=== PATIENT | male | born 1965 | race African-American/Black ===

== ENCOUNTER 2017-05-16 13:49 | Inpatient (IN) | payer MEDICARE, OTHER ==
[~2017-05-16] VITALS: Ht 167.6 cm; Wt 89.4 kg
[2017-05-16] MEDS ORDERED: IV NORMAL SALINE 1000ML BAG 1,000 ML IV ONE ×2 (14:45→15:30)
[2017-05-16] MEDS ORDERED: DIPHTH,PERTUSS(ACELL),TET TOX 0.5 ML DISP.SYRIN. VAX IM ONE (14:45)
[2017-05-16] MEDS ORDERED: PIPERACILLIN/TAZOBACTAM 3.375 GM in IV DEXTROSE 5% 50 ML IV ONE (15:00)
[2017-05-16] MEDS ORDERED: VANCOMYCIN 2 GM in IV DEXTROSE 5% 500 ML IV ONE (15:00)
[2017-05-16 15:04] LABS: NEG OBC FOB NEG; POS OBC FOB POS
--- NOTE | 2017-05-16 15:28 | PHYS DOC ---
Past Medical History Past Medical History: No Pertinent History Additional Past Surgical Histo: L HIP SURGERY. Alcohol Use: None Drug Use: None Adult General Chief Complaint Chief Complaint: ABSCESS HPI HPI Patient is a 51 year old male who presents with with no significant medical history who presents complaining of something in his rectal area that he noted a couple days ago. Patient states he has tried soaking in a hot tub with no relief. He states he has tried [id number] hemorrhoids medications including Preparation H with no relief. Patient denies any nausea vomiting. Review of Systems Review of Systems Constitutional: Denies fever or chills [] Eyes: Denies change in visual acuity, redness, or eye pain [] HENT: Denies nasal congestion or sore throat [] Respiratory: Denies cough or shortness of breath [] Cardiovascular: No additional information not addressed in HPI [] GI: Denies abdominal pain, nausea, vomiting, bloody stools or diarrhea [] : Denies dysuria or hematuria [] Musculoskeletal: Denies back pain or joint pain [] Integument: rectal area wound Neurologic: Denies headache, focal weakness or sensory changes [] Current Medications Current Medications Current Medications Medications (Trade) Dose Ordered Sig/Cristina Start Time Stop Time Status Last Admin Dose Admin Diphtheria/ Tetanus/Acell Pertussis (Boostrix) 0.5 ml ONCE ONCE 05/16/17 14:45 05/16/17 14:47 DC Sodium Chloride 1,000 ml @ 1,000 mls/hr 1X ONCE 05/16/17 14:45 05/16/17 15:44 05/16/17 15:18 1,000 MLS/HR Allergies Allergies Allergies Coded Allergies Type Severity Reaction Last Updated Verified No Known Drug Allergies 05/16/17 No Physical Exam Physical Exam Constitutional: Well developed, well nourished, no acute distress, non-toxic appearance. [] HENT: Normocephalic, atraumatic, bilateral external ears normal, oropharynx moist, no oral exudates, nose normal. [] Eyes: PERRLA, EOMI, conjunctiva normal, no discharge. [] Neck: Normal range of motion, no tenderness, supple, no stridor. [] Cardiovascular:Heart rate regular rhythm, no murmur [] Lungs & Thorax: Bilateral breath sounds clear to auscultation [] Abdomen: Bowel sounds normal, soft, no tenderness, no masses, no pulsatile masses. [] Skin: Warm, dry, there is an indurated area mild in size from the exterior rectal area into the inner rectum area with no drainage, the area is fluctuant and erythematous. Back: No tenderness, no CVA tenderness. [] Extremities: No tenderness, no cyanosis, no clubbing, ROM intact, no edema. [] Neurologic: Alert and oriented X 3, normal motor function, normal sensory function, no focal deficits noted. [] Psychologic: Affect normal, judgement normal, mood normal. [] Current Patient Data Vital Signs Vital Signs Date Time Temp Pulse Resp B/P (MAP) Pulse Ox O2 Delivery O2 Flow Rate FiO2 05/16/17 13:55 97.6 117 24 164/82 (109) 95 Room Air 95.0 97.6 Lab Values Laboratory Tests Test 05/16/17 14:15 Stool Occult Blood Negative (NEG) EKG EKG [] Radiology/Procedures Radiology/Procedures [] Course & Med Decision Making Course & Med Decision Making Pertinent Labs and Imaging studies reviewed. (See chart for details) Patient has what appears to be a rectal abscess. Consulted with general surgery. Consulted with Dr. schulte who accepted patient for admission. He was started on antibiotics. Dragon Disclaimer Dragon Disclaimer This electronic medical record was generated, in whole or in part, using a voice recognition dictation system. Departure Departure Impression: Primary Impression: Rectal abscess Disposition: ADMITTED INPATIENT Admitting Physician: Yvonne Schulte Condition: STABLE Referrals: UNKNOWN PCP NAME (PCP) ACSSIE ERICKSON APRN May 16, 2017 15:28
[2017-05-16] MEDS ORDERED: ONDANSETRON PF 4 MG/2 ML VIAL. IV PRN (15:30)
[2017-05-16 15:36] LABS: BASO # 0.1 x10^3/uL (0.0-0.2); BASO % 0 % (0-3); EOS % 0 % (0-3); HEMATOCRIT 49.4 % (39.0-53.0); HEMOGLOBIN 16.3 g/dL (13.0-17.5); LYMPH % 14 % (24-48); MEAN CORPUSCULAR HEMOGLOBIN 30 pg (25-35); MEAN CORPUSCULAR HGB CONC 33 g/dL (31-37); MEAN CORPUSCULAR VOLUME 90 fL (79-100); MONO % 9 % (0-9); NEUT % 77 % (31-73); PLATELET COUNT 287 x10^3/uL (140-400); RED CELL DISTRIBUTION WIDTH 15.1 % (11.5-14.5); WHITE BLOOD COUNT 20.7 x10^3/uL (4.0-11.0)
[2017-05-16] MEDS ORDERED: IOHEXOL 300 MG/ML 75 ML VIAL IV ONE (15:45)
[2017-05-16] MEDS ORDERED: CONTRAST GIVEN MC PRN (15:45)
[2017-05-16 15:51] LABS: CALCIUM 9.4 mg/dL (8.5-10.1); CREATININE 0.9 mg/dL (0.7-1.3); GFR 108.5; POTASSIUM 4.3 mmol/L (3.5-5.1)
[2017-05-16 15:57] LABS: ALBUMIN 3.9 g/dL (3.4-5.0); ALBUMIN/GLOBULIN RATIO 0.7 (1.0-1.7); TOTAL BILIRUBIN 0.6 mg/dL (0.2-1.0); TOTAL PROTEIN 9.6 g/dL (6.4-8.2)
--- NOTE | 2017-05-16 16:07 | PDOC1 ---
History and Physical Date of Admission Date of Admission DATE: 05/16/17 TIME: 16:03 Identification/Chief Complaint Chief Complaint rectal pain Problems: Source Source: Chart review, Patient History of Present Illness History of Present Illness Mr. Myles, is a 51 year old male presented to ER with rectal pain, worse over 4 days, pain with stooling, pain 10/10, now 8 after pain meds He reports no significant medical history. No benefit from soaking in a hot tub with no relief. Preparation H with no relief. 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, prior EtOH abuse, works as a national dedicated truck driver, lives alone Past Medical History Cardiovascular: HTN Musculoskeletal: low back pain Infectious disease: No pertinent hx Renal/: No pertinent hx Social History Smoke: 1 pack per day ALCOHOL: none (prior abuse, sober 13 years) Drugs: None Current Medications Current Medications Current Medications Sodium Chloride 1,000 ml @ 1,000 mls/hr 1X ONCE IV Last administered on 05/16 15:18; Start 05/16/17 at 14:45; Stop 05/16/17 at 15:44; Status DC Diphtheria/ Tetanus/Acell Pertussis (Boostrix) 0.5 ml ONCE ONCE VAX IM Last administered on 05/16/17 15:54; Start 05/16/17 at 14:45; Stop 05/16/17 at 14 :47; Status DC Piperacillin Sod/ Tazobactam Sod 3.375 gm/Dextrose 50 ml @ 100 mls/hr Q8HRS IV ; Start 05/16/17 at 22:00; Status UNV Vancomycin HCl (Vanco Per Pharmacy) 1 each DAILY ; Start 05/17/17 at 09:00; Status UNV Vancomycin HCl 2 gm/Dextrose 500 ml @ 250 mls/hr 1X ONCE IV ; Start 05/16/17 at 15:00; Stop 05/16/17 at 16:59 Piperacillin Sod/ Tazobactam Sod 3.375 gm/Dextrose 50 ml @ 100 mls/hr 1X ONCE IV Last administered on 05/16/17t 15:19; Start 05/16/17 at 15:00; Stop 05/16 at 15:29; Status DC Ondansetron HCl (Zofran) 4 mg PRN Q8HRS PRN IV NAUSEA/VOMITING; Start at 15:30; Stop 05/17/17 at 15:29 Morphine Sulfate 2 mg PRN Q2HR PRN IV PAIN; Start 05/16/17 at 15:30; Stop at 15:29 Sodium Chloride 1,000 ml @ 75 mls/hr 1X ONCE IV ; Start 05/16/17 at 15:30; Stop 05/17/17 at 04:49 Iohexol (Omnipaque 300 Mg/ml) 75 ml 1X ONCE IV ; Start 05/16/17 at 15:45; Stop 05/16/17 at 15:46; Status DC Info (Do NOT chart on this entry -- for MONITORING) 1 each PRN DAILY PRN MC SEE COMMENTS; Start 05/16/17 at 15:45; Stop 05/18/17 at 15:44 Allergies Allergies: Coded Allergies: No Known Drug Allergies (Unverified , 05/16/17) ROS General: YES: Fatigue, Appetite, No: Chills, Night Sweats, Malaise, Other PSYCHOLOGICAL ROS: No: Anxiety, Behavioral Disorder, Concentration difficultie , Decreased libido, Depression, Disorientation, Hallucinations, Hostility, Irritablity, Memory difficulties, Mood Swings, Obsessive thoughts, Physical abuse, Sexual abuse, Sleep disturbances, Suicidal ideation, Other Eyes: No Blurry vision, No Decreased vision, No Double vision, No Dry eyes, No Excessive tearing, No Eye Pain, No Itchy Eyes, No Loss of vision, No Photophobia , No Scotomata, No Uses contacts, No Uses glasses, No Other HEENT: No: Heacaches, Visual Changes, Hearing change, Nasal congestion, Nasal discharge, Oral lesions, Sinus pain, Sore Throat, Epistaxis, Sneezing, Snoring, Tinnitus, Vertigo, Vocal changes, Other Respiratory: No: Cough, Hemoptysis, Orthopnea, Pleuritic Pain, Shortness of breath, SOB with excertion, Sputum Changes, Stridor, Tachypnea, Wheezing, Other Cardiovascular: No Chest Pain, No Palpitations, No Orthopnea, No Paroxysmal Noc. Dyspnea, No Edema, No Lt Headedness, No Other Gastrointestinal: Yes Nausea, No Vomiting, No Abdominal Pain, No Diarrhea, No Constipation, No Melena, No Hematochezia, No Other Genitourinary: No Dysuria, No Frequency, No Incontinence, No Hematuria, No Retention, No Discharge, No Urgency, No Pain, No Flank Pain, No Other, No , No , No , No , No , No , No Musculoskeletal: No Gait Disturbance, No Joint Pain, No Joint Stiffness, No Joint Swelling, No Muscle Pain, No Muscular Weakness, No Pain In:, No Swelling In:, No Other Neurological: No Behavorial Changes, No Bowel/Bladder ControlChng, No Confusion , No Dizziness, No Gait Disturbance, No Headaches, No Impaired Coord/balance, No Memory Loss, No Numbness/Tingling, No Seizures, No Speech Problems, No Tremors, No Visual Changes, No Weakness, No Other Skin: No Dry Skin, No Eczema, No Hair Changes, No Lumps, No Mole Changes, No Mottling, No Nail Changes, No Pruritus, No Rash, No Skin Lesion Changes, No Other, No Acne Physical Exam General: Alert, Cooperative, moderate distress HEENT: EOMI Lungs: Normal air movement Heart: no gallops, no murmurs Abdomen: Normal bowel sounds, Soft Extremities: No clubbing, No edema Skin: No rashes, No significant lesion Neuro: Normal speech, Sensation intact Psych/Mental Status: Mental status NL, Mood NL Vitals Vitals Vital Signs Date Time Temp Pulse Resp B/P (MAP) Pulse Ox O2 Delivery O2 Flow Rate FiO2 05/16/17 13:55 97.6 117 24 164/82 (109) 95 Room Air 95.0 97.6 Labs Labs Laboratory Tests Test 05/16/17 14:15 05/16/17 15:15 Stool Occult Blood Negative (NEG) White Blood Count 20.7 x10^3/uL (4.0-11.0) Red Blood Count 5.50 x10^6/uL (4.30-5.70) Hemoglobin 16.3 g/dL (13.0-17.5) Hematocrit 49.4 % (39.0-53.0) Mean Corpuscular Volume 90 fL (79-100) Mean Corpuscular Hemoglobin 30 pg (25-35) Mean Corpuscular Hemoglobin Concent 33 g/dL (31-37) Red Cell Distribution Width 15.1 % (11.5-14.5) Platelet Count 287 x10^3/uL (140-400) Neutrophils (%) (Auto) 77 % (31-73) Lymphocytes (%) (Auto) 14 % (24-48) Monocytes (%) (Auto) 9 % (0-9) Eosinophils (%) (Auto) 0 % (0-3) Basophils (%) (Auto) 0 % (0-3) Neutrophils # (Auto) 15.8 x10^3uL (1.8-7.7) Lymphocytes # (Auto) 3.0 x10^3/uL (1.0-4.8) Monocytes # (Auto) 1.8 x10^3/uL (0.0-1.1) Eosinophils # (Auto) 0.0 x10^3/uL (0.0-0.7) Basophils # (Auto) 0.1 x10^3/uL (0.0-0.2) Sodium Level 135 mmol/L (136-145) Potassium Level 4.3 mmol/L (3.5-5.1) Chloride Level 100 mmol/L (98-107) Carbon Dioxide Level 23 mmol/L (21-32) Anion Gap 12 (6-14) Blood Urea Nitrogen 12 mg/dL (8-26) Creatinine 0.9 mg/dL (0.7-1.3) Estimated GFR (Cockcroft-Gault) 108.5 BUN/Creatinine Ratio 13 (6-20) Glucose Level 96 mg/dL (70-99) Calcium Level 9.4 mg/dL (8.5-10.1) Total Bilirubin 0.6 mg/dL (0.2-1.0) Aspartate Amino Transf (AST/SGOT) 30 U/L (15-37) Alanine Aminotransferase (ALT/SGPT) 32 U/L (16-63) Alkaline Phosphatase 122 U/L (46-116) Total Protein 9.6 g/dL (6.4-8.2) Albumin 3.9 g/dL (3.4-5.0) Albumin/Globulin Ratio 0.7 (1.0-1.7) Lipase 56 U/L (73-393) Laboratory Tests Test 05/16/17 14:15 05/16/17 15:15 Stool Occult Blood Negative (NEG) White Blood Count 20.7 x10^3/uL (4.0-11.0) Red Blood Count 5.50 x10^6/uL (4.30-5.70) Hemoglobin 16.3 g/dL (13.0-17.5) Hematocrit 49.4 % (39.0-53.0) Mean Corpuscular Volume 90 fL (79-100) Mean Corpuscular Hemoglobin 30 pg (25-35) Mean Corpuscular Hemoglobin Concent 33 g/dL (31-37) Red Cell Distribution Width 15.1 % (11.5-14.5) Platelet Count 287 x10^3/uL (140-400) Neutrophils (%) (Auto) 77 % (31-73) Lymphocytes (%) (Auto) 14 % (24-48) Monocytes (%) (Auto) 9 % (0-9) Eosinophils (%) (Auto) 0 % (0-3) Basophils (%) (Auto) 0 % (0-3) Neutrophils # (Auto) 15.8 x10^3uL (1.8-7.7) Lymphocytes # (Auto) 3.0 x10^3/uL (1.0-4.8) Monocytes # (Auto) 1.8 x10^3/uL (0.0-1.1) Eosinophils # (Auto) 0.0 x10^3/uL (0.0-0.7) Basophils # (Auto) 0.1 x10^3/uL (0.0-0.2) Sodium Level 135 mmol/L (136-145) Potassium Level 4.3 mmol/L (3.5-5.1) Chloride Level 100 mmol/L (98-107) Carbon Dioxide Level 23 mmol/L (21-32) Anion Gap 12 (6-14) Blood Urea Nitrogen 12 mg/dL (8-26) Creatinine 0.9 mg/dL (0.7-1.3) Estimated GFR (Cockcroft-Gault) 108.5 BUN/Creatinine Ratio 13 (6-20) Glucose Level 96 mg/dL (70-99) Calcium Level 9.4 mg/dL (8.5-10.1) Total Bilirubin 0.6 mg/dL (0.2-1.0) Aspartate Amino Transf (AST/SGOT) 30 U/L (15-37) Alanine Aminotransferase (ALT/SGPT) 32 U/L (16-63) Alkaline Phosphatase 122 U/L (46-116) Total Protein 9.6 g/dL (6.4-8.2) Albumin 3.9 g/dL (3.4-5.0) Albumin/Globulin Ratio 0.7 (1.0-1.7) Lipase 56 U/L (73-393) VTE Prophylaxis Ordered VTE Prophylaxis Devices: Yes VTE Pharmacological Prophylaxi: No Assessment/Plan Assessment/Plan sepsis, cellulitis, leukocytosis, tachycardia adn tachypnea, zosyn started acute rectal pain, rectal abcess IV abx started admit for gen surg eval tobaccoism obesity, BMI 33 SALIMA MACIAS MD May 16, 2017 16:07
[2017-05-16] MEDS ORDERED: NICOTINE POLACRILEX 2MG GUM PACKAGE of 12. BC PRN (16:15)
[2017-05-16] MEDS ORDERED: NICOTINE 21MG PATCH. TD PRN (16:15)
[2017-05-16 16:16] LABS: PLT ESTIMATE ADEQUATE (ADEQUATE)
[2017-05-16 16:30] VITALS: BP 162/73
--- NOTE | 2017-05-16 16:39 | RAD ---
CT of the abdomen and pelvis with contrast, 05/16/2017: History: Rectal abscess Multidetector CT imaging was performed following an IV bolus injection of iodinated contrast material. No oral contrast material was administered for this exam. There is mild streaky atelectasis and/or scarring in the lung bases. No hepatic abnormality is detected. The gallbladder is unremarkable. The pancreas shows no abnormality. The spleen is of normal size. No renal or adrenal abnormality is detected. Aortic calcific plaquing is present without evidence of aneurysm. There are small retroperitoneal and iliac lymph nodes without evidence of pathologic enlargement. There are prominent left inguinal lymph nodes. The largest of these measures 36 x 15 mm. The prostate gland and seminal vesicles are unremarkable. There is a left perianal fluid collection containing air bubbles and gas. It measures 3.6 cm in greatest AP dimension and 2 cm in width. Its inferior extent was not completely included on this study. There is mild adjacent streaky inflammation in the perianal fat on the left. There is fluid throughout the colon. The colon is not distended. A portion of the appendix is visualized and it is unremarkable. The small bowel loops show no abnormality. No free air or significant free fluid is evident in the abdomen or pelvis. There is a tract in the proximal left femur compatible with previous surgery. There are chronic bony fragments along superior aspect of the left greater trochanter. IMPRESSION: 1. Small left perianal fluid collection compatible with an abscess. 2. Mild left inguinal adenopathy. PQRS Compliance Statement: One or more of the following individualized dose reduction techniques were utilized for this examination: 1. Automated exposure control 2. Adjustment of the mA and/or kV according to patient size 3. Use of iterative reconstruction technique
[2017-05-16] MEDS: VANCOMYCIN PER PHARMACY MC PRN (17:32)
--- NOTE | 2017-05-16 18:27 | PDOC2 ---
CONSULT Date of Consult Date of Consult DATE: 05/16/17 TIME: 18:23 History of Present Illness Reason for Visit: The patient is a 51 year old male who reported to the ER with perirectal pain and swelling. The problems started approximately 4 days ago and have worsened. He was evaluated in the ER and diagnosed with a perirectal abscess. Past Medical History Cardiovascular: HTN Musculoskeletal: low back pain Infectious disease: No pertinent hx Renal/: No pertinent hx Past Surgical History Past Surgical History L hip surgery, shoulder surgery Social History 1 pack per day ALCOHOL: none (prior abuse, sober 13 years) Drugs: None Current Medications Current Medications Current Medications Sodium Chloride 1,000 ml @ 1,000 mls/hr 1X ONCE IV Last administered on 05/16 15:18; Start 05/16/17 at 14:45; Stop 05/16/17 at 15:44; Status DC Diphtheria/ Tetanus/Acell Pertussis (Boostrix) 0.5 ml ONCE ONCE VAX IM Last administered on 05/16/17 15:54; Start 05/16/17 at 14:45; Stop 05/16/17 at 14 :47; Status DC Piperacillin Sod/ Tazobactam Sod 3.375 gm/Dextrose 50 ml @ 100 mls/hr Q8HRS IV ; Start 05/16/17 at 22:00; Status UNV Vancomycin HCl (Vanco Per Pharmacy) 1 each PRN DAILY PRN MC SEE COMMENTS Last administered on 05/16/17 17:32; Start 05/17/17 at 09:00 Vancomycin HCl 2 gm/Dextrose 500 ml @ 250 mls/hr 1X ONCE IV Last administered on 05/16/17 17:01; Start 05/16/17 at 15:00; Stop 05/16/17 at 16 :59; Status DC Piperacillin Sod/ Tazobactam Sod 3.375 gm/Dextrose 50 ml @ 100 mls/hr 1X ONCE IV Last administered on 05/16/17 15:19; Start 05/16/17 at 15:00; Stop 05/16 at 15:29; Status DC Ondansetron HCl (Zofran) 4 mg PRN Q8HRS PRN IV NAUSEA/VOMITING; Start at 15:30; Stop 05/17/17 at 15:29 Morphine Sulfate 2 mg PRN Q2HR PRN IV PAIN; Start 05/16/17 at 15:30; Stop at 15:29 Sodium Chloride 1,000 ml @ 75 mls/hr 1X ONCE IV Last administered on 17:01; Start 05/16/17 at 15:30; Stop 05/17/17 at 04:49 Iohexol (Omnipaque 300 Mg/ml) 75 ml 1X ONCE IV Last administered on 15:59; Start 05/16/17 at 15:45; Stop 05/16/17 at 15:46; Status DC Info (Do NOT chart on this entry -- for MONITORING) 1 each PRN DAILY PRN MC SEE COMMENTS; Start 05/16/17 at 15:45; Stop 05/18/17 at 15:44 Piperacillin Sod/ Tazobactam Sod (Zosyn) 3.375 gm Q6HRS IVP ; Start 05/16/17 at 19:30 Nicotine (Nicoderm Cq 21mg) 1 patch PRN DAILY PRN TD SMOKING CESSATION; Start 05/16/17 at 16:15 Nicotine Polacrilex (Nicorette Gum) 1 each PRN Q1HR PRN BC SMOKING CESSATION; Start 05/16/17 at 16:15 Vancomycin HCl 1.5 gm/Dextrose 500 ml @ 250 mls/hr Q12H IV ; Start 05/17/17 at 05:00 Vancomycin HCl 1 each 1X ONCE MC ; Start 05/18/17 at 04:30; Stop 05/18/17 at 04 :31 Allergies Allergies: Coded Allergies: No Known Drug Allergies (Unverified , 05/16/17) ROS General: No: Chills, Night Sweats, Fatigue, Malaise, Appetite, Other PSYCHOLOGICAL ROS: No: Anxiety, Behavioral Disorder, Concentration difficultie , Decreased libido, Depression, Disorientation, Hallucinations, Hostility, Irritablity, Memory difficulties, Mood Swings, Obsessive thoughts, Physical abuse, Sexual abuse, Sleep disturbances, Suicidal ideation, Other Eyes: No Blurry vision, No Decreased vision, No Double vision, No Dry eyes, No Excessive tearing, No Eye Pain, No Itchy Eyes, No Loss of vision, No Photophobia , No Scotomata, No Uses contacts, No Uses glasses, No Other HEENT: No: Heacaches, Visual Changes, Hearing change, Nasal congestion, Nasal discharge, Oral lesions, Sinus pain, Sore Throat, Epistaxis, Sneezing, Snoring, Tinnitus, Vertigo, Vocal changes, Other Hematological and Lymphatic: No: Bleeding Problems, Blood Clots, Blood Transfusions, Brusing, Night Sweats, Pallor, Swollen Lymph Nodes, Other ENDOCRINE: No: Breast Changes, Galactorrhea, Hair Pattern Changes, Hot Flashes , Malaise/lethargy, Mood Swings, Palpitations, Polydipsia/polyuria, Skin Changes , Temperature Intolerance, Unexpected Weight Changes, Other Respiratory: No: Cough, Hemoptysis, Orthopnea, Pleuritic Pain, Shortness of breath, SOB with excertion, Sputum Changes, Stridor, Tachypnea, Wheezing, Other Cardiovascular: No Chest Pain, No Palpitations, No Orthopnea, No Paroxysmal Noc. Dyspnea, No Edema, No Lt Headedness, No Other Gastrointestinal: No Nausea, No Vomiting, No Abdominal Pain, No Diarrhea, No Constipation, No Melena, No Hematochezia, No Other Genitourinary: No Dysuria, No Frequency, No Incontinence, No Hematuria, No Retention, No Discharge, No Urgency, No Pain, No Flank Pain, No Other, No , No , No , No , No , No , No Musculoskeletal: No Gait Disturbance, No Joint Pain, No Joint Stiffness, No Joint Swelling, No Muscle Pain, No Muscular Weakness, No Pain In:, No Swelling In:, No Other Neurological: No Behavorial Changes, No Bowel/Bladder ControlChng, No Confusion , No Dizziness, No Gait Disturbance, No Headaches, No Impaired Coord/balance, No Memory Loss, No Numbness/Tingling, No Seizures, No Speech Problems, No Tremors, No Visual Changes, No Weakness, No Other Physical Exam Physical Exam L perianal pain, fluctuance, induration General: Alert, Oriented X3, Cooperative HEENT: Atraumatic Lungs: Clear to auscultation Heart: Regular rate Abdomen: Soft (obese) Extremities: No clubbing, No cyanosis Psych/Mental Status: Mental status NL MUSCULOSKELETAL: No joint tenderness, No deformity Vitals VITALS Vital Signs Date Time Temp Pulse Resp B/P (MAP) Pulse Ox O2 Delivery O2 Flow Rate FiO2 05/16/17 16:30 98.7 82 18 162/73 (102) 98 Room Air 98.7 1030/17 13:55 95.0 Labs Labs Laboratory Tests Test 05/16/17 14:15 05/16/17 15:15 Stool Occult Blood Negative (NEG) White Blood Count 20.7 x10^3/uL (4.0-11.0) Red Blood Count 5.50 x10^6/uL (4.30-5.70) Hemoglobin 16.3 g/dL (13.0-17.5) Hematocrit 49.4 % (39.0-53.0) Mean Corpuscular Volume 90 fL (79-100) Mean Corpuscular Hemoglobin 30 pg (25-35) Mean Corpuscular Hemoglobin Concent 33 g/dL (31-37) Red Cell Distribution Width 15.1 % (11.5-14.5) Platelet Count 287 x10^3/uL (140-400) Neutrophils (%) (Auto) 77 % (31-73) Lymphocytes (%) (Auto) 14 % (24-48) Monocytes (%) (Auto) 9 % (0-9) Eosinophils (%) (Auto) 0 % (0-3) Basophils (%) (Auto) 0 % (0-3) Neutrophils # (Auto) 15.8 x10^3uL (1.8-7.7) Lymphocytes # (Auto) 3.0 x10^3/uL (1.0-4.8) Monocytes # (Auto) 1.8 x10^3/uL (0.0-1.1) Eosinophils # (Auto) 0.0 x10^3/uL (0.0-0.7) Basophils # (Auto) 0.1 x10^3/uL (0.0-0.2) Segmented Neutrophils % 72 % (35-66) Band Neutrophils % 3 % (0-9) Lymphocytes % 17 % (24-48) Atypical Lymphocytes % (Manual) 1 % (0-0) Monocytes % 7 % (0-10) Platelet Estimate Adequate (ADEQUATE) Sodium Level 135 mmol/L (136-145) Potassium Level 4.3 mmol/L (3.5-5.1) Chloride Level 100 mmol/L (98-107) Carbon Dioxide Level 23 mmol/L (21-32) Anion Gap 12 (6-14) Blood Urea Nitrogen 12 mg/dL (8-26) Creatinine 0.9 mg/dL (0.7-1.3) Estimated GFR (Cockcroft-Gault) 108.5 BUN/Creatinine Ratio 13 (6-20) Glucose Level 96 mg/dL (70-99) Calcium Level 9.4 mg/dL (8.5-10.1) Total Bilirubin 0.6 mg/dL (0.2-1.0) Aspartate Amino Transf (AST/SGOT) 30 U/L (15-37) Alanine Aminotransferase (ALT/SGPT) 32 U/L (16-63) Alkaline Phosphatase 122 U/L (46-116) Total Protein 9.6 g/dL (6.4-8.2) Albumin 3.9 g/dL (3.4-5.0) Albumin/Globulin Ratio 0.7 (1.0-1.7) Lipase 56 U/L (73-393) Laboratory Tests Test 05/16/17 14:15 05/16/17 15:15 Stool Occult Blood Negative (NEG) White Blood Count 20.7 x10^3/uL (4.0-11.0) Red Blood Count 5.50 x10^6/uL (4.30-5.70) Hemoglobin 16.3 g/dL (13.0-17.5) Hematocrit 49.4 % (39.0-53.0) Mean Corpuscular Volume 90 fL (79-100) Mean Corpuscular Hemoglobin 30 pg (25-35) Mean Corpuscular Hemoglobin Concent 33 g/dL (31-37) Red Cell Distribution Width 15.1 % (11.5-14.5) Platelet Count 287 x10^3/uL (140-400) Neutrophils (%) (Auto) 77 % (31-73) Lymphocytes (%) (Auto) 14 % (24-48) Monocytes (%) (Auto) 9 % (0-9) Eosinophils (%) (Auto) 0 % (0-3) Basophils (%) (Auto) 0 % (0-3) Neutrophils # (Auto) 15.8 x10^3uL (1.8-7.7) Lymphocytes # (Auto) 3.0 x10^3/uL (1.0-4.8) Monocytes # (Auto) 1.8 x10^3/uL (0.0-1.1) Eosinophils # (Auto) 0.0 x10^3/uL (0.0-0.7) Basophils # (Auto) 0.1 x10^3/uL (0.0-0.2) Segmented Neutrophils % 72 % (35-66) Band Neutrophils % 3 % (0-9) Lymphocytes % 17 % (24-48) Atypical Lymphocytes % (Manual) 1 % (0-0) Monocytes % 7 % (0-10) Platelet Estimate Adequate (ADEQUATE) Sodium Level 135 mmol/L (136-145) Potassium Level 4.3 mmol/L (3.5-5.1) Chloride Level 100 mmol/L (98-107) Carbon Dioxide Level 23 mmol/L (21-32) Anion Gap 12 (6-14) Blood Urea Nitrogen 12 mg/dL (8-26) Creatinine 0.9 mg/dL (0.7-1.3) Estimated GFR (Cockcroft-Gault) 108.5 BUN/Creatinine Ratio 13 (6-20) Glucose Level 96 mg/dL (70-99) Calcium Level 9.4 mg/dL (8.5-10.1) Total Bilirubin 0.6 mg/dL (0.2-1.0) Aspartate Amino Transf (AST/SGOT) 30 U/L (15-37) Alanine Aminotransferase (ALT/SGPT) 32 U/L (16-63) Alkaline Phosphatase 122 U/L (46-116) Total Protein 9.6 g/dL (6.4-8.2) Albumin 3.9 g/dL (3.4-5.0) Albumin/Globulin Ratio 0.7 (1.0-1.7) Lipase 56 U/L (73-393) Assessment/Plan Assessment/Plan Perirectal abscess, recommend incision and drainage. Will schedule for tomorrow , may eat today, NPO after midnight. I discussed the plan with the patient and he agrees. NESTOR LOWRY MD May 16, 2017 18:27
[2017-05-16 19:49] VITALS: BP 116/77
[2017-05-16] MEDS ORDERED: FLU VACC QS2017-18 (36MOS+)/PF 0.5 ML SYRINGE. VAX IM ONE (20:30)
[2017-05-16] MEDS: MORPHINE SULFATE 2 MG/ML DISP.SYRIN. IV PRN ×2 (20:54→23:06)
[2017-05-16] MEDS: PIPERACILLIN/TAZO IV Push 3.375 GM VIAL. IVP SCH (21:38)
[2017-05-16] MEDS ORDERED: PIPERACILLIN/TAZOBACTAM 3.375 GM in IV DEXTROSE 5% 50 ML IV SCH (22:00)
[2017-05-16 23:41] VITALS: BP 147/62
[2017-05-17] VITALS (12 sets, daily range): BP systolic 125–158; BP diastolic 55–83
[2017-05-17] MEDS: PIPERACILLIN/TAZO IV Push 3.375 GM VIAL. IVP SCH ×5 (02:32→23:48)
[2017-05-17] MEDS: VANCOMYCIN 1.5 GM in IV DEXTROSE 5% 500 ML IV SCH ×2 (04:51→17:15)
[2017-05-17 05:02] LABS: BASO # 0.1 x10^3/uL (0.0-0.2); BASO % 1 % (0-3); EOS % 1 % (0-3); HEMATOCRIT 46.7 % (39.0-53.0); HEMOGLOBIN 15.7 g/dL (13.0-17.5); LYMPH # 4.1 x10^3/uL (1.0-4.8); LYMPH % 22 % (24-48); MEAN CORPUSCULAR HEMOGLOBIN 30 pg (25-35); MEAN CORPUSCULAR HGB CONC 34 g/dL (31-37); MEAN CORPUSCULAR VOLUME 88 fL (79-100); MONO % 12 % (0-9); NEUT % 66 % (31-73); PLATELET COUNT 300 x10^3/uL (140-400); RED BLOOD COUNT 5.29 x10^6/uL (4.30-5.70); RED CELL DISTRIBUTION WIDTH 15.1 % (11.5-14.5)
[2017-05-17 05:42] LABS: CREATININE 1.1 mg/dL (0.7-1.3); GFR 86.1; POTASSIUM 4.1 mmol/L (3.5-5.1)
[2017-05-17] MEDS: MORPHINE SULFATE 2 MG/ML DISP.SYRIN. IV PRN (09:40)
[2017-05-17] MEDS ORDERED: IV RINGERS,LACTATED 1000ML 1,000 ML IV ONE (13:45)
[2017-05-17] MEDS ORDERED: fentaNYL PF VIAL 100 MCG/2 ML VIAL ONE ×2 (13:48→14:06)
[2017-05-17] MEDS ORDERED: SEVOFLURANE 16 TO 30 MINUTES. IH ONE (13:48)
[2017-05-17] MEDS ORDERED: LIDOCAINE 2% PF Vial for OR 5 ML VIAL. ONE (13:49)
[2017-05-17] MEDS ORDERED: PROPOFOL 20 ML IV ONE (13:49)
[2017-05-17] MEDS: VANCOMYCIN PER PHARMACY MC PRN (14:18)
[2017-05-17] MEDS ORDERED: HYDROmorphone 2 MG/ML VIAL IV PRN (14:30)
[2017-05-17] MEDS ORDERED: IV RINGERS,LACTATED 1000ML 1,000 ML IV SCH (14:30)
[2017-05-17] MEDS ORDERED: MORPHINE SULFATE 2 MG/ML DISP.SYRIN. IV PRN (14:30)
[2017-05-17] MEDS ORDERED: fentaNYL PF VIAL 100 MCG/2 ML VIAL IV PRN (14:30)
[2017-05-17] MEDS ORDERED: LIDOCAINE 1% PF 2 ML VIAL. ID PRN (14:30)
[2017-05-17] MEDS ORDERED: ONDANSETRON PF 4 MG/2 ML VIAL. IV PRN (14:30)
[2017-05-17] MEDS ORDERED: PROCHLORPERAZINE 10 MG/2 ML VIAL. IV PRN (14:30)
[2017-05-17] MEDS: fentaNYL PF VIAL 100 MCG/2 ML VIAL IV PRN ×2 (14:43→15:06)
--- NOTE | 2017-05-17 15:09 | PDOC ---
PROGRESS NOTES Chief Complaint Chief Complaint sepsis, cellulitis, acute rectal pain, rectal abcess tobaccoism obesity, BMI 31 History of Present Illness History of Present Illness to OR today cont broad abx will make for DC plan in AM, if able to do home wound care Vitals Vitals Vital Signs Date Time Temp Pulse Resp B/P (MAP) Pulse Ox O2 Delivery O2 Flow Rate FiO2 05/17/17 15:06 20 90 Nasal Cannula 2.0 05/17/17 14:33 70 150/78 05/17/17 14:18 97.0 97.0 Physical Exam General: Alert, Oriented X3, Cooperative Heart: Regular rate Abdomen: Soft (obese) Extremities: No clubbing, No cyanosis Skin: No rashes, No significant lesion Labs LABS Laboratory Tests Test 05/16/17 15:15 05/17/17 04:37 White Blood Count 20.7 x10^3/uL (4.0-11.0) 19.0 x10^3/uL (4.0-11.0) Red Blood Count 5.50 x10^6/uL (4.30-5.70) 5.29 x10^6/uL (4.30-5.70) Hemoglobin 16.3 g/dL (13.0-17.5) 15.7 g/dL (13.0-17.5) Hematocrit 49.4 % (39.0-53.0) 46.7 % (39.0-53.0) Mean Corpuscular Volume 90 fL (79-100) 88 fL (79-100) Mean Corpuscular Hemoglobin 30 pg (25-35) 30 pg (25-35) Mean Corpuscular Hemoglobin Concent 33 g/dL (31-37) 34 g/dL (31-37) Red Cell Distribution Width 15.1 % (11.5-14.5) 15.1 % (11.5-14.5) Platelet Count 287 x10^3/uL (140-400) 300 x10^3/uL (140-400) Neutrophils (%) (Auto) 77 % (31-73) 66 % (31-73) Lymphocytes (%) (Auto) 14 % (24-48) 22 % (24-48) Monocytes (%) (Auto) 9 % (0-9) 12 % (0-9) Eosinophils (%) (Auto) 0 % (0-3) 1 % (0-3) Basophils (%) (Auto) 0 % (0-3) 1 % (0-3) Neutrophils # (Auto) 15.8 x10^3uL (1.8-7.7) 12.6 x10^3uL (1.8-7.7) Lymphocytes # (Auto) 3.0 x10^3/uL (1.0-4.8) 4.1 x10^3/uL (1.0-4.8) Monocytes # (Auto) 1.8 x10^3/uL (0.0-1.1) 2.2 x10^3/uL (0.0-1.1) Eosinophils # (Auto) 0.0 x10^3/uL (0.0-0.7) 0.1 x10^3/uL (0.0-0.7) Basophils # (Auto) 0.1 x10^3/uL (0.0-0.2) 0.1 x10^3/uL (0.0-0.2) Segmented Neutrophils % 72 % (35-66) Band Neutrophils % 3 % (0-9) Lymphocytes % 17 % (24-48) Atypical Lymphocytes % (Manual) 1 % (0-0) Monocytes % 7 % (0-10) Platelet Estimate Adequate (ADEQUATE) Sodium Level 135 mmol/L (136-145) 136 mmol/L (136-145) Potassium Level 4.3 mmol/L (3.5-5.1) 4.1 mmol/L (3.5-5.1) Chloride Level 100 mmol/L (98-107) 103 mmol/L (98-107) Carbon Dioxide Level 23 mmol/L (21-32) 23 mmol/L (21-32) Anion Gap 12 (6-14) 10 (6-14) Blood Urea Nitrogen 12 mg/dL (8-26) 11 mg/dL (8-26) Creatinine 0.9 mg/dL (0.7-1.3) 1.1 mg/dL (0.7-1.3) Estimated GFR (Cockcroft-Gault) 108.5 86.1 BUN/Creatinine Ratio 13 (6-20) Glucose Level 96 mg/dL (70-99) 106 mg/dL (70-99) Calcium Level 9.4 mg/dL (8.5-10.1) 9.0 mg/dL (8.5-10.1) Total Bilirubin 0.6 mg/dL (0.2-1.0) Aspartate Amino Transf (AST/SGOT) 30 U/L (15-37) Alanine Aminotransferase (ALT/SGPT) 32 U/L (16-63) Alkaline Phosphatase 122 U/L (46-116) Total Protein 9.6 g/dL (6.4-8.2) Albumin 3.9 g/dL (3.4-5.0) Albumin/Globulin Ratio 0.7 (1.0-1.7) Lipase 56 U/L (73-393) Vancomycin Level Trough 10.7 mcg/mL (10.0-20.0) Vancomycin Last Dose Date 05/16/17 Vancomycin Last Dose Time 1700 Review of Systems Review of Systems pain this AM Comment Review of Relevant I have reviewed the following items migue (where applicable) has been applied. Labs Laboratory Tests Test 05/16/17 14:15 05/16/17 15:15 05/17/17 04:37 Stool Occult Blood Negative (NEG) White Blood Count 20.7 x10^3/uL (4.0-11.0) 19.0 x10^3/uL (4.0-11.0) Red Blood Count 5.50 x10^6/uL (4.30-5.70) 5.29 x10^6/uL (4.30-5.70) Hemoglobin 16.3 g/dL (13.0-17.5) 15.7 g/dL (13.0-17.5) Hematocrit 49.4 % (39.0-53.0) 46.7 % (39.0-53.0) Mean Corpuscular Volume 90 fL (79-100) 88 fL (79-100) Mean Corpuscular Hemoglobin 30 pg (25-35) 30 pg (25-35) Mean Corpuscular Hemoglobin Concent 33 g/dL (31-37) 34 g/dL (31-37) Red Cell Distribution Width 15.1 % (11.5-14.5) 15.1 % (11.5-14.5) Platelet Count 287 x10^3/uL (140-400) 300 x10^3/uL (140-400) Neutrophils (%) (Auto) 77 % (31-73) 66 % (31-73) Lymphocytes (%) (Auto) 14 % (24-48) 22 % (24-48) Monocytes (%) (Auto) 9 % (0-9) 12 % (0-9) Eosinophils (%) (Auto) 0 % (0-3) 1 % (0-3) Basophils (%) (Auto) 0 % (0-3) 1 % (0-3) Neutrophils # (Auto) 15.8 x10^3uL (1.8-7.7) 12.6 x10^3uL (1.8-7.7) Lymphocytes # (Auto) 3.0 x10^3/uL (1.0-4.8) 4.1 x10^3/uL (1.0-4.8) Monocytes # (Auto) 1.8 x10^3/uL (0.0-1.1) 2.2 x10^3/uL (0.0-1.1) Eosinophils # (Auto) 0.0 x10^3/uL (0.0-0.7) 0.1 x10^3/uL (0.0-0.7) Basophils # (Auto) 0.1 x10^3/uL (0.0-0.2) 0.1 x10^3/uL (0.0-0.2) Segmented Neutrophils % 72 % (35-66) Band Neutrophils % 3 % (0-9) Lymphocytes % 17 % (24-48) Atypical Lymphocytes % (Manual) 1 % (0-0) Monocytes % 7 % (0-10) Platelet Estimate Adequate (ADEQUATE) Sodium Level 135 mmol/L (136-145) 136 mmol/L (136-145) Potassium Level 4.3 mmol/L (3.5-5.1) 4.1 mmol/L (3.5-5.1) Chloride Level 100 mmol/L (98-107) 103 mmol/L (98-107) Carbon Dioxide Level 23 mmol/L (21-32) 23 mmol/L (21-32) Anion Gap 12 (6-14) 10 (6-14) Blood Urea Nitrogen 12 mg/dL (8-26) 11 mg/dL (8-26) Creatinine 0.9 mg/dL (0.7-1.3) 1.1 mg/dL (0.7-1.3) Estimated GFR (Cockcroft-Gault) 108.5 86.1 BUN/Creatinine Ratio 13 (6-20) Glucose Level 96 mg/dL (70-99) 106 mg/dL (70-99) Calcium Level 9.4 mg/dL (8.5-10.1) 9.0 mg/dL (8.5-10.1) Total Bilirubin 0.6 mg/dL (0.2-1.0) Aspartate Amino Transf (AST/SGOT) 30 U/L (15-37) Alanine Aminotransferase (ALT/SGPT) 32 U/L (16-63) Alkaline Phosphatase 122 U/L (46-116) Total Protein 9.6 g/dL (6.4-8.2) Albumin 3.9 g/dL (3.4-5.0) Albumin/Globulin Ratio 0.7 (1.0-1.7) Lipase 56 U/L (73-393) Vancomycin Level Trough 10.7 mcg/mL (10.0-20.0) Vancomycin Last Dose Date 05/16/17 Vancomycin Last Dose Time 1700 Laboratory Tests Test 05/16/17 15:15 05/17/17 04:37 White Blood Count 20.7 x10^3/uL (4.0-11.0) 19.0 x10^3/uL (4.0-11.0) Red Blood Count 5.50 x10^6/uL (4.30-5.70) 5.29 x10^6/uL (4.30-5.70) Hemoglobin 16.3 g/dL (13.0-17.5) 15.7 g/dL (13.0-17.5) Hematocrit 49.4 % (39.0-53.0) 46.7 % (39.0-53.0) Mean Corpuscular Volume 90 fL (79-100) 88 fL (79-100) Mean Corpuscular Hemoglobin 30 pg (25-35) 30 pg (25-35) Mean Corpuscular Hemoglobin Concent 33 g/dL (31-37) 34 g/dL (31-37) Red Cell Distribution Width 15.1 % (11.5-14.5) 15.1 % (11.5-14.5) Platelet Count 287 x10^3/uL (140-400) 300 x10^3/uL (140-400) Neutrophils (%) (Auto) 77 % (31-73) 66 % (31-73) Lymphocytes (%) (Auto) 14 % (24-48) 22 % (24-48) Monocytes (%) (Auto) 9 % (0-9) 12 % (0-9) Eosinophils (%) (Auto) 0 % (0-3) 1 % (0-3) Basophils (%) (Auto) 0 % (0-3) 1 % (0-3) Neutrophils # (Auto) 15.8 x10^3uL (1.8-7.7) 12.6 x10^3uL (1.8-7.7) Lymphocytes # (Auto) 3.0 x10^3/uL (1.0-4.8) 4.1 x10^3/uL (1.0-4.8) Monocytes # (Auto) 1.8 x10^3/uL (0.0-1.1) 2.2 x10^3/uL (0.0-1.1) Eosinophils # (Auto) 0.0 x10^3/uL (0.0-0.7) 0.1 x10^3/uL (0.0-0.7) Basophils # (Auto) 0.1 x10^3/uL (0.0-0.2) 0.1 x10^3/uL (0.0-0.2) Segmented Neutrophils % 72 % (35-66) Band Neutrophils % 3 % (0-9) Lymphocytes % 17 % (24-48) Atypical Lymphocytes % (Manual) 1 % (0-0) Monocytes % 7 % (0-10) Platelet Estimate Adequate (ADEQUATE) Sodium Level 135 mmol/L (136-145) 136 mmol/L (136-145) Potassium Level 4.3 mmol/L (3.5-5.1) 4.1 mmol/L (3.5-5.1) Chloride Level 100 mmol/L (98-107) 103 mmol/L (98-107) Carbon Dioxide Level 23 mmol/L (21-32) 23 mmol/L (21-32) Anion Gap 12 (6-14) 10 (6-14) Blood Urea Nitrogen 12 mg/dL (8-26) 11 mg/dL (8-26) Creatinine 0.9 mg/dL (0.7-1.3) 1.1 mg/dL (0.7-1.3) Estimated GFR (Cockcroft-Gault) 108.5 86.1 BUN/Creatinine Ratio 13 (6-20) Glucose Level 96 mg/dL (70-99) 106 mg/dL (70-99) Calcium Level 9.4 mg/dL (8.5-10.1) 9.0 mg/dL (8.5-10.1) Total Bilirubin 0.6 mg/dL (0.2-1.0) Aspartate Amino Transf (AST/SGOT) 30 U/L (15-37) Alanine Aminotransferase (ALT/SGPT) 32 U/L (16-63) Alkaline Phosphatase 122 U/L (46-116) Total Protein 9.6 g/dL (6.4-8.2) Albumin 3.9 g/dL (3.4-5.0) Albumin/Globulin Ratio 0.7 (1.0-1.7) Lipase 56 U/L (73-393) Vancomycin Level Trough 10.7 mcg/mL (10.0-20.0) Vancomycin Last Dose Date 05/16/17 Vancomycin Last Dose Time 1700 Medications Current Medications Sodium Chloride 1,000 ml @ 1,000 mls/hr 1X ONCE IV Last administered on 05/16 15:18; Start 05/16/17 at 14:45; Stop 05/16/17 at 15:44; Status DC Diphtheria/ Tetanus/Acell Pertussis (Boostrix) 0.5 ml ONCE ONCE VAX IM Last administered on 05/16/17 15:54; Start 05/16/17 at 14:45; Stop 05/16/17 at 14 :47; Status DC Piperacillin Sod/ Tazobactam Sod 3.375 gm/Dextrose 50 ml @ 100 mls/hr Q8HRS IV ; Start 05/16/17 at 22:00; Status UNV Vancomycin HCl (Vanco Per Pharmacy) 1 each PRN DAILY PRN MC SEE COMMENTS Last administered on 05/17/17 14:18; Start 05/17/17 at 09:00 Vancomycin HCl 2 gm/Dextrose 500 ml @ 250 mls/hr 1X ONCE IV Last administered on 05/16/17 17:01; Start 05/16/17 at 15:00; Stop 05/16/17 at 16 :59; Status DC Piperacillin Sod/ Tazobactam Sod 3.375 gm/Dextrose 50 ml @ 100 mls/hr 1X ONCE IV Last administered on 05/16/17 15:19; Start 05/16/17 at 15:00; Stop 05/16 at 15:29; Status DC Ondansetron HCl (Zofran) 4 mg PRN Q8HRS PRN IV NAUSEA/VOMITING Last administered on 05/16/17 23:05; Start 05/16/17 at 15:30; Stop 05/17/17 at 15 :29 Morphine Sulfate 2 mg PRN Q2HR PRN IV PAIN Last administered on 05/17/17 09: 40; Start 05/16/17 at 15:30; Stop 05/17/17 at 15:29 Sodium Chloride 1,000 ml @ 75 mls/hr 1X ONCE IV Last administered on 17:01; Start 05/16/17 at 15:30; Stop 05/17/17 at 04:49; Status DC Iohexol (Omnipaque 300 Mg/ml) 75 ml 1X ONCE IV Last administered on 15:59; Start 05/16/17 at 15:45; Stop 05/16/17 at 15:46; Status DC Info (Do NOT chart on this entry -- for MONITORING) 1 each PRN DAILY PRN MC SEE COMMENTS; Start 05/16/17 at 15:45; Stop 05/18/17 at 15:44 Piperacillin Sod/ Tazobactam Sod (Zosyn) 3.375 gm Q6HRS IVP Last administered on 05/17/17 12:06; Start 05/16/17 at 19:30 Nicotine (Nicoderm Cq 21mg) 1 patch PRN DAILY PRN TD SMOKING CESSATION; Start 05/16/17 at 16:15 Nicotine Polacrilex (Nicorette Gum) 1 each PRN Q1HR PRN BC SMOKING CESSATION; Start 05/16/17 at 16:15 Vancomycin HCl 1.5 gm/Dextrose 500 ml @ 250 mls/hr Q12H IV Last administered on 05/17/17 04:51; Start 05/17/17 at 05:00 Vancomycin HCl 1 each 1X ONCE MC ; Start 05/18/17 at 04:30; Stop 05/18/17 at 04 :31 Influenza Virus Vaccine Quadrival (Fluarix Quad [id number] Syringe) 0.5 ml ONCE ONCE VAX IM ; Start 05/16/17 at 20:30; Stop 05/16/17 at 20:31; Status DC Ringer's Solution 1,000 ml @ 75 mls/hr 1X ONCE IV Last administered on t 13:40; Start 05/17/17 at 13:45; Stop 05/18/17 at 03:04 Fentanyl Citrate (Fentanyl 2ml Vial) 100 mcg STK-MED ONCE .ROUTE ; Start at 13:48; Stop 05/17/17 at 13:49; Status DC Sevoflurane (Ultane) 15 ml STK-MED ONCE IH ; Start 05/17/17 at 13:48; Stop at 13:49; Status DC Propofol 20 ml @ As Directed STK-MED ONCE IV ; Start 05/17/17 at 13:49; Stop 05/17/17 at 13:50; Status DC Lidocaine HCl (Lidocaine Pf 2% Vial) 5 ml STK-MED ONCE .ROUTE ; Start 05/17/17 at 13:49; Stop 05/17/17 at 13:50; Status DC Fentanyl Citrate (Fentanyl 2ml Vial) 100 mcg STK-MED ONCE .ROUTE ; Start at 14:06; Stop 05/17/17 at 14:07; Status DC Ondansetron HCl (Zofran) 4 mg PRN Q6HRS PRN IV NAUSEA/VOMITING; Start at 14:30; Stop 05/18/17 at 14:29 Fentanyl Citrate (Fentanyl 2ml Vial) 25 mcg PRN Q5MIN PRN IV MILD PAIN; Start 05/17/17 at 14:30; Stop 05/18/17 at 14:29 Fentanyl Citrate (Fentanyl 2ml Vial) 50 mcg PRN Q5MIN PRN IV MODERATE PAIN Last administered on 05/17/17 15:06; Start 05/17/17 at 14:30; Stop 05/18/17 at 14:29 Morphine Sulfate 1 mg PRN Q10MIN PRN IV SEVERE PAIN; Start 05/17/17 at 14:30; Stop 05/18/17 at 14:29 Ringer's Solution 1,000 ml @ 30 mls/hr Q24H IV ; Start 05/17/17 at 14:30; Stop 05/18/17 at 02:29 Lidocaine HCl (Xylocaine-Mpf 1% Vial) 2 ml 1X PRN PRN ID IV START; Start 05/17 at 14:30; Stop 05/18/17 at 14:29 Hydromorphone HCl (Dilaudid) 0.5 mg PRN Q10MIN PRN IV SEV PAIN, Second choice; Start 05/17/17 at 14:30; Stop 05/18/17 at 14:29 Prochlorperazine Edisylate (Compazine) 5 mg PACU PRN PRN IV NAUSEA, MRX1; Start 05/17/17 at 14:30; Stop 05/18/17 at 14:29 Vitals/I & O Vital Sign - Last 24 Hours 05/16/17 05/16/17 05/16/17 05/16/17 16:27 16:30 19:49 19:50 Temp 98.7 98.6 98.7 98.6 Pulse 82 86 Resp 18 24 B/P (MAP) 162/73 (102) 116/77 (90) Pulse Ox 98 98 O2 Delivery Room Air Room Air Room Air Room Air 05/16/17 05/16/17 05/16/17 05/16/17 20:54 23:06 23:40 23:41 Temp 98.1 98.1 Pulse 76 Resp 16 17 17 24 B/P (MAP) 147/62 (90) Pulse Ox 98 98 94 O2 Delivery Room Air Room Air Room Air 05/17/17 05/17/17 05/17/17 05/17/17 03:13 07:00 08:00 10:26 Temp 98.1 98.1 98.1 98.1 Pulse 70 58 Resp 22 18 B/P (MAP) 125/57 (79) 128/65 (86) Pulse Ox 92 92 92 O2 Delivery Room Air Room Air Room Air Room Air 05/17/17 05/17/17 05/17/17 05/17/17 11:00 13:29 14:18 14:33 Temp 98.1 100.4 97.0 98.1 100.4 97.0 Pulse 61 62 72 70 Resp 18 15 20 20 B/P (MAP) 158/ 151/79 125/76 150/78 Pulse Ox 93 95 98 98 O2 Delivery Room Air Room Air Simple Mask Room Air O2 Flow Rate 05/17/17 05/17/17 14:43 15:06 Resp 20 20 Pulse Ox 90 90 O2 Delivery Room Air Nasal Cannula O2 Flow Rate 2.0 Intake and Output 05/17/17 05/17/17 05/18/17 15:00 23:00 07:00 Intake Total 500 ml Balance 500 ml SALIMA MACIAS MD May 17, 2017 15:09
--- NOTE | 2017-05-17 16:26 | PDOC4 ---
Operative Note Operative Note Operative Note: Preoperative Diagnosis: Perirectal abscess Postoperative Diagnosis: Same Procedure: Incision and drainage of perirectal abscess Surgeon: Silvio Anesthesia: Gen. EBL: 10 mL Specimen: Cultures to micrology Drains: None Complications: None Indication: The patient is a 51-year-old male who reported through the emergency department with perirectal pain and swelling. Examination is consistent with perirectal abscess. There has been some spontaneous drainage but he continues to have pain and swelling of the area. The plan is to proceed to the operating room for formal incision and drainage. The details and risks of surgery were discussed. The risks include bleeding, infection, recurrence, pain, anesthetic risk, potential need for additional surgery or procedure. He understands and would like to proceed Description: The patient was taken to the operating room and placed supine on the operating table. Gen. anesthesia was performed. He was then placed in lithotomy. The perirectal area was prepped with Betadine and draped in a standard surgical manner. The area of involvement was the left perianal skin. There was a small opening from what appeared to be a spontaneous drainage site. There was some remaining fluid however and cultures of this were obtained. Some of the skin was opened further with a scalpel. Digital exploration of the abscess cavity was performed freeing up any remaining loculations. The entire cavity was then fully drained. The cavity was then irrigated with sterile saline. Hemostasis was achieved with cautery. The wound was then packed with sterile gauze and a dressing was applied. The patient tolerated the procedure well and was sent to the recovery room in stable condition. At the end of the case all counts were correct. NESTOR LOWRY MD May 17, 2017 16:25
[2017-05-17] MEDS ORDERED: oxyCODONE/APAP 5/325 1 TAB TABLET PO PRN (16:30)
[2017-05-17] MEDS: oxyCODONE/APAP 5/325 1 TAB TABLET PO PRN ×2 (17:12→23:05)
[2017-05-18 03:08] VITALS: BP 128/74
[2017-05-18] MEDS: oxyCODONE/APAP 5/325 1 TAB TABLET PO PRN ×3 (03:48→18:16)
[2017-05-18] MEDS: VANCOMYCIN 1.5 GM in IV DEXTROSE 5% 500 ML IV SCH ×2 (05:00→11:54)
[2017-05-18] MEDS: PIPERACILLIN/TAZO IV Push 3.375 GM VIAL. IVP SCH ×3 (05:33→18:18)
[2017-05-18 07:00] VITALS: BP 131/72
[2017-05-18] MEDS: VANCOMYCIN PER PHARMACY MC PRN (07:50)
--- NOTE | 2017-05-18 10:07 | PDOC ---
PROGRESS NOTES Subjective Subjective feeling better Objective Objective Vital Signs Date Time Temp Pulse Resp B/P (MAP) Pulse Ox O2 Delivery O2 Flow Rate FiO2 05/18/17 08:19 Nasal Cannula 2.0 05/18/17 07:00 97.5 58 18 131/72 (91) 95 97.5 Plan Plan of Care Wound care to see today, initiate dressing changes for wound care Comment Review of Relevant I have reviewed the following items migue (where applicable) has been applied. Labs Laboratory Tests Test 05/16/17 14:15 05/16/17 15:15 05/17/17 04:37 05/18/17 04:25 Stool Occult Blood Negative (NEG) White Blood Count 20.7 x10^3/uL (4.0-11.0) 19.0 x10^3/uL (4.0-11.0) Red Blood Count 5.50 x10^6/uL (4.30-5.70) 5.29 x10^6/uL (4.30-5.70) Hemoglobin 16.3 g/dL (13.0-17.5) 15.7 g/dL (13.0-17.5) Hematocrit 49.4 % (39.0-53.0) 46.7 % (39.0-53.0) Mean Corpuscular Volume 90 fL (79-100) 88 fL (79-100) Mean Corpuscular Hemoglobin 30 pg (25-35) 30 pg (25-35) Mean Corpuscular Hemoglobin Concent 33 g/dL (31-37) 34 g/dL (31-37) Red Cell Distribution Width 15.1 % (11.5-14.5) 15.1 % (11.5-14.5) Platelet Count 287 x10^3/uL (140-400) 300 x10^3/uL (140-400) Neutrophils (%) (Auto) 77 % (31-73) 66 % (31-73) Lymphocytes (%) (Auto) 14 % (24-48) 22 % (24-48) Monocytes (%) (Auto) 9 % (0-9) 12 % (0-9) Eosinophils (%) (Auto) 0 % (0-3) 1 % (0-3) Basophils (%) (Auto) 0 % (0-3) 1 % (0-3) Neutrophils # (Auto) 15.8 x10^3uL (1.8-7.7) 12.6 x10^3uL (1.8-7.7) Lymphocytes # (Auto) 3.0 x10^3/uL (1.0-4.8) 4.1 x10^3/uL (1.0-4.8) Monocytes # (Auto) 1.8 x10^3/uL (0.0-1.1) 2.2 x10^3/uL (0.0-1.1) Eosinophils # (Auto) 0.0 x10^3/uL (0.0-0.7) 0.1 x10^3/uL (0.0-0.7) Basophils # (Auto) 0.1 x10^3/uL (0.0-0.2) 0.1 x10^3/uL (0.0-0.2) Segmented Neutrophils % 72 % (35-66) Band Neutrophils % 3 % (0-9) Lymphocytes % 17 % (24-48) Atypical Lymphocytes % (Manual) 1 % (0-0) Monocytes % 7 % (0-10) Platelet Estimate Adequate (ADEQUATE) Sodium Level 135 mmol/L (136-145) 136 mmol/L (136-145) Potassium Level 4.3 mmol/L (3.5-5.1) 4.1 mmol/L (3.5-5.1) Chloride Level 100 mmol/L (98-107) 103 mmol/L (98-107) Carbon Dioxide Level 23 mmol/L (21-32) 23 mmol/L (21-32) Anion Gap 12 (6-14) 10 (6-14) Blood Urea Nitrogen 12 mg/dL (8-26) 11 mg/dL (8-26) Creatinine 0.9 mg/dL (0.7-1.3) 1.1 mg/dL (0.7-1.3) Estimated GFR (Cockcroft-Gault) 108.5 86.1 BUN/Creatinine Ratio 13 (6-20) Glucose Level 96 mg/dL (70-99) 106 mg/dL (70-99) Calcium Level 9.4 mg/dL (8.5-10.1) 9.0 mg/dL (8.5-10.1) Total Bilirubin 0.6 mg/dL (0.2-1.0) Aspartate Amino Transf (AST/SGOT) 30 U/L (15-37) Alanine Aminotransferase (ALT/SGPT) 32 U/L (16-63) Alkaline Phosphatase 122 U/L (46-116) Total Protein 9.6 g/dL (6.4-8.2) Albumin 3.9 g/dL (3.4-5.0) Albumin/Globulin Ratio 0.7 (1.0-1.7) Lipase 56 U/L (73-393) Vancomycin Level Trough 10.7 mcg/mL (10.0-20.0) 22.5 mcg/mL (10.0-20.0) Vancomycin Last Dose Date 05/16/17 05/17/17 Vancomycin Last Dose Time 1700 1700 Laboratory Tests Test 05/18/17 04:25 Vancomycin Level Trough 22.5 mcg/mL (10.0-20.0) Vancomycin Last Dose Date 05/17/17 Vancomycin Last Dose Time 1700 Microbiology 05/17/17 Gram Stain - Final, Complete Medications Current Medications Sodium Chloride 1,000 ml @ 1,000 mls/hr 1X ONCE IV Last administered on 05/16 15:18; Start 05/16/17 at 14:45; Stop 05/16/17 at 15:44; Status DC Diphtheria/ Tetanus/Acell Pertussis (Boostrix) 0.5 ml ONCE ONCE VAX IM Last administered on 05/16/17 15:54; Start 05/16/17 at 14:45; Stop 05/16/17 at 14 :47; Status DC Piperacillin Sod/ Tazobactam Sod 3.375 gm/Dextrose 50 ml @ 100 mls/hr Q8HRS IV ; Start 05/16/17 at 22:00; Status UNV Vancomycin HCl (Vanco Per Pharmacy) 1 each PRN DAILY PRN MC SEE COMMENTS Last administered on 05/18/17 07:50; Start 05/17/17 at 09:00 Vancomycin HCl 2 gm/Dextrose 500 ml @ 250 mls/hr 1X ONCE IV Last administered on 05/16/17 17:01; Start 05/16/17 at 15:00; Stop 05/16/17 at 16 :59; Status DC Piperacillin Sod/ Tazobactam Sod 3.375 gm/Dextrose 50 ml @ 100 mls/hr 1X ONCE IV Last administered on 05/16/17 15:19; Start 05/16/17 at 15:00; Stop 05/16 at 15:29; Status DC Ondansetron HCl (Zofran) 4 mg PRN Q8HRS PRN IV NAUSEA/VOMITING Last administered on 05/16/17 23:05; Start 05/16/17 at 15:30; Stop 05/17/17 at 15 :29; Status DC Morphine Sulfate 2 mg PRN Q2HR PRN IV PAIN Last administered on 05/17/17 09: 40; Start 05/16/17 at 15:30; Stop 05/17/17 at 15:29; Status DC Sodium Chloride 1,000 ml @ 75 mls/hr 1X ONCE IV Last administered on 17:01; Start 05/16/17 at 15:30; Stop 05/17/17 at 04:49; Status DC Iohexol (Omnipaque 300 Mg/ml) 75 ml 1X ONCE IV Last administered on 15:59; Start 05/16/17 at 15:45; Stop 05/16/17 at 15:46; Status DC Info (Do NOT chart on this entry -- for MONITORING) 1 each PRN DAILY PRN MC SEE COMMENTS; Start 05/16/17 at 15:45; Stop 05/18/17 at 15:44 Piperacillin Sod/ Tazobactam Sod (Zosyn) 3.375 gm Q6HRS IVP Last administered on 05/18/17 05:33; Start 05/16/17 at 19:30 Nicotine (Nicoderm Cq 21mg) 1 patch PRN DAILY PRN TD SMOKING CESSATION; Start 05/16/17 at 16:15 Nicotine Polacrilex (Nicorette Gum) 1 each PRN Q1HR PRN BC SMOKING CESSATION; Start 05/16/17 at 16:15 Vancomycin HCl 1.5 gm/Dextrose 500 ml @ 250 mls/hr Q12H IV Last administered on 05/17/17 17:15; Start 05/17/17 at 05:00; Stop 05/18/17 at 07:38; Status DC Vancomycin HCl 1 each 1X ONCE MC Last administered on 05/18/17 04:30; Start 05/18/17 at 04:30; Stop 05/18/17 at 04:31; Status DC Influenza Virus Vaccine Quadrival (Fluarix Quad 2803-9300 Syringe) 0.5 ml ONCE ONCE VAX IM ; Start 05/16/17 at 20:30; Stop 05/16/17 at 20:31; Status DC Ringer's Solution 1,000 ml @ 75 mls/hr 1X ONCE IV Last administered on t 13:40; Start 05/17/17 at 13:45; Stop 05/18/17 at 03:04; Status DC Fentanyl Citrate (Fentanyl 2ml Vial) 100 mcg STK-MED ONCE .ROUTE ; Start at 13:48; Stop 05/17/17 at 13:49; Status DC Sevoflurane (Ultane) 15 ml STK-MED ONCE IH ; Start 05/17/17 at 13:48; Stop at 13:49; Status DC Propofol 20 ml @ As Directed STK-MED ONCE IV ; Start 05/17/17 at 13:49; Stop 05/17/17 at 13:50; Status DC Lidocaine HCl (Lidocaine Pf 2% Vial) 5 ml STK-MED ONCE .ROUTE ; Start 05/17/17 at 13:49; Stop 05/17/17 at 13:50; Status DC Fentanyl Citrate (Fentanyl 2ml Vial) 100 mcg STK-MED ONCE .ROUTE ; Start at 14:06; Stop 05/17/17 at 14:07; Status DC Ondansetron HCl (Zofran) 4 mg PRN Q6HRS PRN IV NAUSEA/VOMITING; Start at 14:30; Stop 05/18/17 at 04:07; Status DC Fentanyl Citrate (Fentanyl 2ml Vial) 25 mcg PRN Q5MIN PRN IV MILD PAIN; Start 05/17/17 at 14:30; Stop 05/18/17 at 04:07; Status DC Fentanyl Citrate (Fentanyl 2ml Vial) 50 mcg PRN Q5MIN PRN IV MODERATE PAIN Last administered on 05/17/17t 15:06; Start 05/17/17 at 14:30; Stop 05/18/17 at 04:07; Status DC Morphine Sulfate 1 mg PRN Q10MIN PRN IV SEVERE PAIN; Start 05/17/17 at 14:30; Stop 05/18/17 at 04:07; Status DC Ringer's Solution 1,000 ml @ 30 mls/hr Q24H IV ; Start 05/17/17 at 14:30; Stop 05/18/17 at 02:29; Status DC Lidocaine HCl (Xylocaine-Mpf 1% Vial) 2 ml 1X PRN PRN ID IV START; Start 05/17 at 14:30; Stop 05/18/17 at 14:29 Hydromorphone HCl (Dilaudid) 0.5 mg PRN Q10MIN PRN IV SEV PAIN, Second choice; Start 05/17/17 at 14:30; Stop 05/18/17 at 04:07; Status DC Prochlorperazine Edisylate (Compazine) 5 mg PACU PRN PRN IV NAUSEA, MRX1; Start 05/17/17 at 14:30; Stop 05/18/17 at 04:07; Status DC Oxycodone/ Acetaminophen (Percocet 5/325) 1 tab PRN Q4HRS PRN PO PAIN; Start 05/17/17 at 16:30 Oxycodone/ Acetaminophen (Percocet 5/325) 2 tab PRN Q4HRS PRN PO PAIN Last administered on 05/18/17t 08:19; Start 05/17/17 at 16:30 Vancomycin HCl 1.5 gm/Dextrose 500 ml @ 250 mls/hr Q18H IV ; Start 05/18/17 at 11:00 Vitals/I & O Vital Sign - Last 24 Hours 05/17/17 05/17/17 05/17/17 05/17/17 10:26 11:00 13:29 14:18 Temp 98.1 100.4 97.0 98.1 100.4 97.0 Pulse 61 62 72 Resp 18 15 20 B/P (MAP) 158/ 151/79 125/76 Pulse Ox 92 93 95 98 O2 Delivery Room Air Room Air Room Air Simple Mask O2 Flow Rate 10 05/17/17 05/17/17 05/17/17 05/17/17 14:33 14:43 14:48 15:03 Pulse 70 74 74 Resp 20 20 22 20 B/P (MAP) 150/78 150/78 145/75 Pulse Ox 98 90 95 88 O2 Delivery Room Air Room Air Nasal Cannula Nasal Cannula O2 Flow Rate 2 2 05/17/17 05/17/17 05/17/17 05/17/17 15:06 15:11 15:28 15:30 Temp 98.4 98.4 Pulse 74 67 Resp 20 18 18 B/P (MAP) 153/83 (106) 136/83 (100) Pulse Ox 90 91 89 O2 Delivery Nasal Cannula Nasal Cannula Nasal Cannula Nasal Cannula O2 Flow Rate 2.0 2 2.0 2.0 05/17/17 05/17/17 05/17/17 05/17/17 15:45 16:00 16:15 16:30 Pulse 74 68 69 71 Resp 18 18 18 18 B/P (MAP) 148/79 (102) 144/72 (96) 128/69 (88) 130/55 (80) Pulse Ox 99 97 92 88 O2 Delivery Nasal Cannula Nasal Cannula Nasal Cannula Nasal Cannula O2 Flow Rate 2.0 2.0 2.0 2.0 05/17/17 05/17/17 05/17/17 05/17/17 17:00 17:09 17:12 18:18 Pulse 71 Resp 18 B/P (MAP) 136/60 (85) Pulse Ox 91 91 91 91 O2 Delivery Nasal Cannula Nasal Cannula Nasal Cannula O2 Flow Rate 2.0 2.0 2.0 05/17/17 05/17/17 05/17/17 05/17/17 19:30 20:00 23:05 23:27 Temp 98.1 98.4 98.1 98.4 Pulse 65 67 Resp 18 18 B/P (MAP) 126/71 (89) 138/74 (95) Pulse Ox 93 93 O2 Delivery Nasal Cannula Room Air Nasal Cannula Room Air O2 Flow Rate 2.0 1.0 05/18/17 05/18/17 05/18/17 05/18/17 00:05 03:08 03:48 04:48 Temp 98.4 98.4 Pulse 65 Resp 18 B/P (MAP) 128/74 (92) Pulse Ox 94 O2 Delivery Nasal Cannula Nasal Cannula Room Air O2 Flow Rate 1.0 2.0 1.0 05/18/17 05/18/17 07:00 08:19 Temp 97.5 97.5 Pulse 58 Resp 18 B/P (MAP) 131/72 (91) Pulse Ox 95 O2 Delivery Nasal Cannula Nasal Cannula O2 Flow Rate 2.0 2.0 NESTOR LOWRY MD May 18, 2017 10:07
[2017-05-18 11:00] VITALS: BP 145/68
[2017-05-18 15:00] VITALS: BP 145/78
--- NOTE | 2017-05-18 15:08 | PDOC ---
PROGRESS NOTES Chief Complaint Chief Complaint sepsis, cellulitis, acute rectal pain, ramesh-rectal abcess, POD #1 tobaccoism obesity, BMI 31 History of Present Illness History of Present Illness to OR yesterday cont broad abx will need wound care , consider if able to do home wound care Vitals Vitals Vital Signs Date Time Temp Pulse Resp B/P (MAP) Pulse Ox O2 Delivery O2 Flow Rate FiO2 05/18/17 11:00 97.5 64 18 145/68 (93) 96 Nasal Cannula 2.0 97.5 Physical Exam General: Alert, Oriented X3, Cooperative Heart: Regular rate Abdomen: Soft (obese) Extremities: No clubbing, No cyanosis Skin: No rashes, No significant lesion Labs LABS Laboratory Tests Test 05/18/17 04:25 Vancomycin Level Trough 22.5 mcg/mL (10.0-20.0) Vancomycin Last Dose Date 05/17/17 Vancomycin Last Dose Time 1700 Review of Systems Review of Systems pain better eating OK slept OK Assessment and Plan Assessmemt and Plan wound care consut cont IV abx plan to DC in AM Problems: Comment Review of Relevant I have reviewed the following items migue (where applicable) has been applied. Labs Laboratory Tests Test 05/16/17 15:15 05/17/17 04:37 05/18/17 04:25 White Blood Count 20.7 x10^3/uL (4.0-11.0) 19.0 x10^3/uL (4.0-11.0) Red Blood Count 5.50 x10^6/uL (4.30-5.70) 5.29 x10^6/uL (4.30-5.70) Hemoglobin 16.3 g/dL (13.0-17.5) 15.7 g/dL (13.0-17.5) Hematocrit 49.4 % (39.0-53.0) 46.7 % (39.0-53.0) Mean Corpuscular Volume 90 fL (79-100) 88 fL (79-100) Mean Corpuscular Hemoglobin 30 pg (25-35) 30 pg (25-35) Mean Corpuscular Hemoglobin Concent 33 g/dL (31-37) 34 g/dL (31-37) Red Cell Distribution Width 15.1 % (11.5-14.5) 15.1 % (11.5-14.5) Platelet Count 287 x10^3/uL (140-400) 300 x10^3/uL (140-400) Neutrophils (%) (Auto) 77 % (31-73) 66 % (31-73) Lymphocytes (%) (Auto) 14 % (24-48) 22 % (24-48) Monocytes (%) (Auto) 9 % (0-9) 12 % (0-9) Eosinophils (%) (Auto) 0 % (0-3) 1 % (0-3) Basophils (%) (Auto) 0 % (0-3) 1 % (0-3) Neutrophils # (Auto) 15.8 x10^3uL (1.8-7.7) 12.6 x10^3uL (1.8-7.7) Lymphocytes # (Auto) 3.0 x10^3/uL (1.0-4.8) 4.1 x10^3/uL (1.0-4.8) Monocytes # (Auto) 1.8 x10^3/uL (0.0-1.1) 2.2 x10^3/uL (0.0-1.1) Eosinophils # (Auto) 0.0 x10^3/uL (0.0-0.7) 0.1 x10^3/uL (0.0-0.7) Basophils # (Auto) 0.1 x10^3/uL (0.0-0.2) 0.1 x10^3/uL (0.0-0.2) Segmented Neutrophils % 72 % (35-66) Band Neutrophils % 3 % (0-9) Lymphocytes % 17 % (24-48) Atypical Lymphocytes % (Manual) 1 % (0-0) Monocytes % 7 % (0-10) Platelet Estimate Adequate (ADEQUATE) Sodium Level 135 mmol/L (136-145) 136 mmol/L (136-145) Potassium Level 4.3 mmol/L (3.5-5.1) 4.1 mmol/L (3.5-5.1) Chloride Level 100 mmol/L (98-107) 103 mmol/L (98-107) Carbon Dioxide Level 23 mmol/L (21-32) 23 mmol/L (21-32) Anion Gap 12 (6-14) 10 (6-14) Blood Urea Nitrogen 12 mg/dL (8-26) 11 mg/dL (8-26) Creatinine 0.9 mg/dL (0.7-1.3) 1.1 mg/dL (0.7-1.3) Estimated GFR (Cockcroft-Gault) 108.5 86.1 BUN/Creatinine Ratio 13 (6-20) Glucose Level 96 mg/dL (70-99) 106 mg/dL (70-99) Calcium Level 9.4 mg/dL (8.5-10.1) 9.0 mg/dL (8.5-10.1) Total Bilirubin 0.6 mg/dL (0.2-1.0) Aspartate Amino Transf (AST/SGOT) 30 U/L (15-37) Alanine Aminotransferase (ALT/SGPT) 32 U/L (16-63) Alkaline Phosphatase 122 U/L (46-116) Total Protein 9.6 g/dL (6.4-8.2) Albumin 3.9 g/dL (3.4-5.0) Albumin/Globulin Ratio 0.7 (1.0-1.7) Lipase 56 U/L (73-393) Vancomycin Level Trough 10.7 mcg/mL (10.0-20.0) 22.5 mcg/mL (10.0-20.0) Vancomycin Last Dose Date 05/16/17 05/17/17 Vancomycin Last Dose Time 1700 1700 Laboratory Tests Test 05/18/17 04:25 Vancomycin Level Trough 22.5 mcg/mL (10.0-20.0) Vancomycin Last Dose Date 05/17/17 Vancomycin Last Dose Time 1700 Microbiology 05/17/17 Gram Stain - Final, Complete Medications Current Medications Sodium Chloride 1,000 ml @ 1,000 mls/hr 1X ONCE IV Last administered on 05/16 15:18; Start 05/16/17 at 14:45; Stop 05/16/17 at 15:44; Status DC Diphtheria/ Tetanus/Acell Pertussis (Boostrix) 0.5 ml ONCE ONCE VAX IM Last administered on 05/16/17 15:54; Start 05/16/17 at 14:45; Stop 05/16/17 at 14 :47; Status DC Piperacillin Sod/ Tazobactam Sod 3.375 gm/Dextrose 50 ml @ 100 mls/hr Q8HRS IV ; Start 05/16/17 at 22:00; Status UNV Vancomycin HCl (Vanco Per Pharmacy) 1 each PRN DAILY PRN MC SEE COMMENTS Last administered on 05/18/17 07:50; Start 05/17/17 at 09:00 Vancomycin HCl 2 gm/Dextrose 500 ml @ 250 mls/hr 1X ONCE IV Last administered on 05/16/17 17:01; Start 05/16/17 at 15:00; Stop 05/16/17 at 16 :59; Status DC Piperacillin Sod/ Tazobactam Sod 3.375 gm/Dextrose 50 ml @ 100 mls/hr 1X ONCE IV Last administered on 05/16/17 15:19; Start 05/16/17 at 15:00; Stop 05/16 at 15:29; Status DC Ondansetron HCl (Zofran) 4 mg PRN Q8HRS PRN IV NAUSEA/VOMITING Last administered on 05/16/17 23:05; Start 05/16/17 at 15:30; Stop 05/17/17 at 15 :29; Status DC Morphine Sulfate 2 mg PRN Q2HR PRN IV PAIN Last administered on 05/17/17 09: 40; Start 05/16/17 at 15:30; Stop 05/17/17 at 15:29; Status DC Sodium Chloride 1,000 ml @ 75 mls/hr 1X ONCE IV Last administered on 17:01; Start 05/16/17 at 15:30; Stop 05/17/17 at 04:49; Status DC Iohexol (Omnipaque 300 Mg/ml) 75 ml 1X ONCE IV Last administered on 15:59; Start 05/16/17 at 15:45; Stop 05/16/17 at 15:46; Status DC Info (Do NOT chart on this entry -- for MONITORING) 1 each PRN DAILY PRN MC SEE COMMENTS; Start 05/16/17 at 15:45; Stop 05/18/17 at 15:44 Piperacillin Sod/ Tazobactam Sod (Zosyn) 3.375 gm Q6HRS IVP Last administered on 05/18/17 11:54; Start 05/16/17 at 19:30 Nicotine (Nicoderm Cq 21mg) 1 patch PRN DAILY PRN TD SMOKING CESSATION; Start 05/16/17 at 16:15 Nicotine Polacrilex (Nicorette Gum) 1 each PRN Q1HR PRN BC SMOKING CESSATION; Start 05/16/17 at 16:15 Vancomycin HCl 1.5 gm/Dextrose 500 ml @ 250 mls/hr Q12H IV Last administered on 05/17/17 17:15; Start 05/17/17 at 05:00; Stop 05/18/17 at 07:38; Status DC Vancomycin HCl 1 each 1X ONCE MC Last administered on 05/18/17 04:30; Start 05/18/17 at 04:30; Stop 05/18/17 at 04:31; Status DC Influenza Virus Vaccine Quadrival (Fluarix Quad 2417-5267 Syringe) 0.5 ml ONCE ONCE VAX IM ; Start 05/16/17 at 20:30; Stop 05/16/17 at 20:31; Status DC Ringer's Solution 1,000 ml @ 75 mls/hr 1X ONCE IV Last administered on t 13:40; Start 05/17/17 at 13:45; Stop 05/18/17 at 03:04; Status DC Fentanyl Citrate (Fentanyl 2ml Vial) 100 mcg STK-MED ONCE .ROUTE ; Start at 13:48; Stop 05/17/17 at 13:49; Status DC Sevoflurane (Ultane) 15 ml STK-MED ONCE IH ; Start 05/17/17 at 13:48; Stop at 13:49; Status DC Propofol 20 ml @ As Directed STK-MED ONCE IV ; Start 05/17/17 at 13:49; Stop 05/17/17 at 13:50; Status DC Lidocaine HCl (Lidocaine Pf 2% Vial) 5 ml STK-MED ONCE .ROUTE ; Start 05/17/17 at 13:49; Stop 05/17/17 at 13:50; Status DC Fentanyl Citrate (Fentanyl 2ml Vial) 100 mcg STK-MED ONCE .ROUTE ; Start at 14:06; Stop 05/17/17 at 14:07; Status DC Ondansetron HCl (Zofran) 4 mg PRN Q6HRS PRN IV NAUSEA/VOMITING; Start at 14:30; Stop 05/18/17 at 04:07; Status DC Fentanyl Citrate (Fentanyl 2ml Vial) 25 mcg PRN Q5MIN PRN IV MILD PAIN; Start 05/17/17 at 14:30; Stop 05/18/17 at 04:07; Status DC Fentanyl Citrate (Fentanyl 2ml Vial) 50 mcg PRN Q5MIN PRN IV MODERATE PAIN Last administered on 05/17/17 15:06; Start 05/17/17 at 14:30; Stop 05/18/17 at 04:07; Status DC Morphine Sulfate 1 mg PRN Q10MIN PRN IV SEVERE PAIN; Start 05/17/17 at 14:30; Stop 05/18/17 at 04:07; Status DC Ringer's Solution 1,000 ml @ 30 mls/hr Q24H IV ; Start 05/17/17 at 14:30; Stop 05/18/17 at 02:29; Status DC Lidocaine HCl (Xylocaine-Mpf 1% Vial) 2 ml 1X PRN PRN ID IV START; Start 05/17 at 14:30; Stop 05/18/17 at 14:29; Status DC Hydromorphone HCl (Dilaudid) 0.5 mg PRN Q10MIN PRN IV SEV PAIN, Second choice; Start 05/17/17 at 14:30; Stop 05/18/17 at 04:07; Status DC Prochlorperazine Edisylate (Compazine) 5 mg PACU PRN PRN IV NAUSEA, MRX1; Start 05/17/17 at 14:30; Stop 05/18/17 at 04:07; Status DC Oxycodone/ Acetaminophen (Percocet 5/325) 1 tab PRN Q4HRS PRN PO PAIN; Start 05/17/17 at 16:30 Oxycodone/ Acetaminophen (Percocet 5/325) 2 tab PRN Q4HRS PRN PO PAIN Last administered on 05/18/17 08:19; Start 05/17/17 at 16:30 Vancomycin HCl 1.5 gm/Dextrose 500 ml @ 250 mls/hr Q18H IV Last administered on 05/18/17 11:54; Start 05/18/17 at 11:00 Vitals/I & O Vital Sign - Last 24 Hours 10/3105/17/17 05/17/17 05/17/17 15:11 15:28 15:30 15:45 Temp 98.4 98.4 Pulse 74 67 74 Resp 18 18 18 B/P (MAP) 153/83 (106) 136/83 (100) 148/79 (102) Pulse Ox 91 89 99 O2 Delivery Nasal Cannula Nasal Cannula Nasal Cannula Nasal Cannula O2 Flow Rate 2 2.0 2.0 2.0 05/17/17 05/17/17 05/17/17 05/17/17 16:00 16:15 16:30 17:00 Pulse 68 69 71 71 Resp 18 18 18 18 B/P (MAP) 144/72 (96) 128/69 (88) 130/55 (80) 136/60 (85) Pulse Ox 97 92 88 91 O2 Delivery Nasal Cannula Nasal Cannula Nasal Cannula Nasal Cannula O2 Flow Rate 2.0 2.0 2.0 2.0 05/17/17 05/17/17 05/17/17 05/17/17 17:09 17:12 18:18 19:30 Temp 98.1 98.1 Pulse 65 Resp 18 B/P (MAP) 126/71 (89) Pulse Ox 91 91 91 93 O2 Delivery Nasal Cannula Nasal Cannula Nasal Cannula O2 Flow Rate 2.0 2.0 2.0 05/17/17 05/17/17 05/17/17 05/18/17 20:00 23:05 23:27 03:08 Temp 98.4 98.4 98.4 98.4 Pulse 67 65 Resp 18 18 B/P (MAP) 138/74 (95) 128/74 (92) Pulse Ox 93 94 O2 Delivery Room Air Nasal Cannula Room Air Nasal Cannula O2 Flow Rate 1.0 2.0 05/18/17 05/18/17 05/18/17 05/18/17 03:48 07:00 07:40 08:19 Temp 97.5 97.5 Pulse 58 Resp 18 B/P (MAP) 131/72 (91) Pulse Ox 95 O2 Delivery Nasal Cannula Nasal Cannula Nasal Cannula Nasal Cannula O2 Flow Rate 1.0 2.0 2.0 2.0 05/18/17 05/18/17 09:20 11:00 Temp 97.5 97.5 Pulse 64 Resp 18 B/P (MAP) 145/68 (93) Pulse Ox 96 O2 Delivery Nasal Cannula Nasal Cannula O2 Flow Rate 2.0 2.0 Intake and Output 05/18/17 05/18/17 05/19/17 15:00 23:00 07:00 Output Total 225 ml Balance -225 ml SALIMA MACIAS MD May 18, 2017 15:08
[2017-05-18 19:00] VITALS: BP 140/69
[2017-05-18 23:05] VITALS: BP 136/69
[2017-05-19] MEDS: PIPERACILLIN/TAZO IV Push 3.375 GM VIAL. IVP SCH ×3 (00:01→11:25)
[2017-05-19 03:10] VITALS: BP 145/71
[2017-05-19 04:50] LABS: BASO # 0.1 x10^3/uL (0.0-0.2); BASO % 1 % (0-3); EOS % 2 % (0-3); HEMATOCRIT 43.8 % (39.0-53.0); HEMOGLOBIN 14.4 g/dL (13.0-17.5); LYMPH # 3.6 x10^3/uL (1.0-4.8); LYMPH % 27 % (24-48); MEAN CORPUSCULAR HEMOGLOBIN 29 pg (25-35); MEAN CORPUSCULAR HGB CONC 33 g/dL (31-37); MEAN CORPUSCULAR VOLUME 89 fL (79-100); MONO % 13 % (0-9); NEUT % 58 % (31-73); PLATELET COUNT 326 x10^3/uL (140-400); RED BLOOD COUNT 4.94 x10^6/uL (4.30-5.70); RED CELL DISTRIBUTION WIDTH 14.9 % (11.5-14.5); WHITE BLOOD COUNT 13.6 x10^3/uL (4.0-11.0)
[2017-05-19 05:21] LABS: ALBUMIN/GLOBULIN RATIO 0.6 (1.0-1.7); CALCIUM 9.3 mg/dL (8.5-10.1); GFR 43.2; POTASSIUM 4.4 mmol/L (3.5-5.1); TOTAL BILIRUBIN 0.4 mg/dL (0.2-1.0); TOTAL PROTEIN 8.3 g/dL (6.4-8.2)
[2017-05-19] MEDS: VANCOMYCIN 1.5 GM in IV DEXTROSE 5% 500 ML IV SCH (05:38)
[2017-05-19] MEDS: oxyCODONE/APAP 5/325 1 TAB TABLET PO PRN (05:41)
[2017-05-19 07:00] VITALS: BP 129/67
--- NOTE | 2017-05-19 08:29 | PDOC ---
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 0829: SURGICAL PROGRESS NOTE Subjective tolerating diet dressing changed last evening by wound care plans for family to assist with wound care at home Vital Signs Vital Signs Date Time Temp Pulse Resp B/P (MAP) Pulse Ox O2 Delivery O2 Flow Rate FiO2 05/19/17 06:41 Nasal Cannula 2.0 05/19/17 03:10 98.4 57 20 145/71 (95) 94 98.4 General: Alert, Oriented X3, Cooperative, No acute distress Skin: Other Labs Laboratory Tests Test 05/18/17 04:25 05/19/17 04:30 Vancomycin Level Trough 22.5 mcg/mL (10.0-20.0) Vancomycin Last Dose Date 05/17/17 Vancomycin Last Dose Time 1700 White Blood Count 13.6 x10^3/uL (4.0-11.0) Red Blood Count 4.94 x10^6/uL (4.30-5.70) Hemoglobin 14.4 g/dL (13.0-17.5) Hematocrit 43.8 % (39.0-53.0) Mean Corpuscular Volume 89 fL (79-100) Mean Corpuscular Hemoglobin 29 pg (25-35) Mean Corpuscular Hemoglobin Concent 33 g/dL (31-37) Red Cell Distribution Width 14.9 % (11.5-14.5) Platelet Count 326 x10^3/uL (140-400) Neutrophils (%) (Auto) 58 % (31-73) Lymphocytes (%) (Auto) 27 % (24-48) Monocytes (%) (Auto) 13 % (0-9) Eosinophils (%) (Auto) 2 % (0-3) Basophils (%) (Auto) 1 % (0-3) Neutrophils # (Auto) 7.8 x10^3uL (1.8-7.7) Lymphocytes # (Auto) 3.6 x10^3/uL (1.0-4.8) Monocytes # (Auto) 1.8 x10^3/uL (0.0-1.1) Eosinophils # (Auto) 0.3 x10^3/uL (0.0-0.7) Basophils # (Auto) 0.1 x10^3/uL (0.0-0.2) Sodium Level 141 mmol/L (136-145) Potassium Level 4.4 mmol/L (3.5-5.1) Chloride Level 104 mmol/L (98-107) Carbon Dioxide Level 27 mmol/L (21-32) Anion Gap 10 (6-14) Blood Urea Nitrogen 22 mg/dL (8-26) Creatinine 2.0 mg/dL (0.7-1.3) Estimated GFR (Cockcroft-Gault) 43.2 BUN/Creatinine Ratio 11 (6-20) Glucose Level 85 mg/dL (70-99) Calcium Level 9.3 mg/dL (8.5-10.1) Total Bilirubin 0.4 mg/dL (0.2-1.0) Aspartate Amino Transf (AST/SGOT) 23 U/L (15-37) Alanine Aminotransferase (ALT/SGPT) 24 U/L (16-63) Alkaline Phosphatase 103 U/L (46-116) Total Protein 8.3 g/dL (6.4-8.2) Albumin 3.0 g/dL (3.4-5.0) Albumin/Globulin Ratio 0.6 (1.0-1.7) Laboratory Tests Test 05/19/17 04:30 White Blood Count 13.6 x10^3/uL (4.0-11.0) Red Blood Count 4.94 x10^6/uL (4.30-5.70) Hemoglobin 14.4 g/dL (13.0-17.5) Hematocrit 43.8 % (39.0-53.0) Mean Corpuscular Volume 89 fL (79-100) Mean Corpuscular Hemoglobin 29 pg (25-35) Mean Corpuscular Hemoglobin Concent 33 g/dL (31-37) Red Cell Distribution Width 14.9 % (11.5-14.5) Platelet Count 326 x10^3/uL (140-400) Neutrophils (%) (Auto) 58 % (31-73) Lymphocytes (%) (Auto) 27 % (24-48) Monocytes (%) (Auto) 13 % (0-9) Eosinophils (%) (Auto) 2 % (0-3) Basophils (%) (Auto) 1 % (0-3) Neutrophils # (Auto) 7.8 x10^3uL (1.8-7.7) Lymphocytes # (Auto) 3.6 x10^3/uL (1.0-4.8) Monocytes # (Auto) 1.8 x10^3/uL (0.0-1.1) Eosinophils # (Auto) 0.3 x10^3/uL (0.0-0.7) Basophils # (Auto) 0.1 x10^3/uL (0.0-0.2) Sodium Level 141 mmol/L (136-145) Potassium Level 4.4 mmol/L (3.5-5.1) Chloride Level 104 mmol/L (98-107) Carbon Dioxide Level 27 mmol/L (21-32) Anion Gap 10 (6-14) Blood Urea Nitrogen 22 mg/dL (8-26) Creatinine 2.0 mg/dL (0.7-1.3) Estimated GFR (Cockcroft-Gault) 43.2 BUN/Creatinine Ratio 11 (6-20) Glucose Level 85 mg/dL (70-99) Calcium Level 9.3 mg/dL (8.5-10.1) Total Bilirubin 0.4 mg/dL (0.2-1.0) Aspartate Amino Transf (AST/SGOT) 23 U/L (15-37) Alanine Aminotransferase (ALT/SGPT) 24 U/L (16-63) Alkaline Phosphatase 103 U/L (46-116) Total Protein 8.3 g/dL (6.4-8.2) Albumin 3.0 g/dL (3.4-5.0) Albumin/Globulin Ratio 0.6 (1.0-1.7) Assessment/Plan s/p I&D wound care DC planning Problems: NESTOR LOWRY MD 05/19/17 0937: SURGICAL PROGRESS NOTE Assessment/Plan Agree with above, DC planning, can FU with wound care clinic Problems: GRABIEL LLOYD APRN May 19, 2017 08:29 NESTOR LOWRY MD May 19, 2017 09:37
[2017-05-19 11:00] VITALS: BP 140/76
[2017-05-19] MEDS ORDERED: LACTOBACILLUS RHAMNOSUS GG 1 CAPSULE. PO SCH (11:00)
[2017-05-19] MEDS ORDERED: POLY17PO29 PO (12:55)
[2017-05-19] MEDS ORDERED: DOCU-109 PO (12:55)
[2017-05-19] MEDS ORDERED: OXYC1TAB7 PO (12:55)
[2017-05-19] MEDS ORDERED: AMOX1TAB61 PO (12:55)
== END 2017-05-19 14:30 | disposition home or self-care (01) | DRG 854 ==
LOC: ER 13:49 → 4 NORTH 14:56
PROVIDERS: ADMIT Internal Medicine; ATTEND Internal Medicine
PROC: 0D9P0ZZ Drainage of Rectum, Open Approach (ICD-10-PCS; principal; 2017-05-17 13:30)
DX: A41.9 Sepsis, unspecified organism (principal); K61.1 Rectal abscess; E66.9 Obesity, unspecified; Z68.31 Body mass index [BMI] 31.0-31.9, adult; F17.210 Nicotine dependence, cigarettes, uncomplicated; I10 Essential (primary) hypertension; F10.10 Alcohol abuse, uncomplicated; Z60.2 Problems related to living alone
CPT/HCPCS: 36415; 74177; 80048; 80053; 80202; 82274; 83690; 85007; 85025; 87205; 90471; 90686; 90715; 96365; J2270; J2405; J2543; J2704; J3010; J3370; J7030; J7120; Q9967; 99285-25; A4461; J2001

== ENCOUNTER 2019-09-24 02:31 | Inpatient (IN) | payer MEDICARE, OTHER ==
[~2019-09-24] VITALS: Ht 162.6 cm; Wt 96.2 kg
[2019-09-24] VITALS (10 sets, daily range): BP systolic 114–155; BP diastolic 54–89
[~2019-09-24 02:31] MED LIST: AMOX1TAB61 PO; DOCU-109 PO; OXYC1TAB7 PO; POLY17PO29 PO
[2019-09-24] MEDS ORDERED: MORPHINE SULFATE 2 MG/ML VIAL. IV PRN ×2 (03:30→09:15)
[2019-09-24] MEDS ORDERED: ONDANSETRON PF 4 MG/2 ML VIAL. IVP ONE (03:30)
[2019-09-24] MEDS ORDERED: MORPHINE SULFATE 4 MG/ML VIAL. IV ONE (03:30)
--- NOTE | 2019-09-24 03:34 | PHYS DOC ---
Past Medical History Past Medical History: High Cholesterol Additional Past Medical Histor: RECTAL ABSCESS Past Surgical History: Other Additional Past Surgical Histo: L HIP SURGERY, RECTAL ABSCESS REMOVAL Smoking Status: Current Every Day Smoker Alcohol Use: None Drug Use: None Adult General Chief Complaint Chief Complaint: ABSCESS HPI HPI Patient is a 54 year old male with history of dyslipidemia and rectal abscess who presents with complaint of a boil. Patient complaining of painful area in perineal abscess for the last 5 days without discharge or constipation. Patient denies fever and chills, nausea vomiting, abdominal pain. Patient had rectal abscess in 2017 that was treated surgically. Review of Systems Review of Systems Constitutional: Denies fever or chills [] Eyes: Denies change in visual acuity, redness, or eye pain [] HENT: Denies nasal congestion or sore throat [] Respiratory: Denies cough or shortness of breath [] Cardiovascular: No additional information not addressed in HPI [] GI: Denies abdominal pain, nausea, vomiting, bloody stools or diarrhea [] : Denies dysuria or hematuria [] Musculoskeletal: Denies back pain or joint pain [] Integument: Denies rash or skin lesions [] Neurologic: Denies headache, focal weakness or sensory changes [] Endocrine: Denies polyuria or polydipsia [] All other systems were reviewed and found to be within normal limits, except as documented in this note. Current Medications Current Medications Current Medications Medications (Trade) Dose Ordered Sig/Cristina Start Time Stop Time Status Last Admin Dose Admin Morphine Sulfate (Morphine Sulfate) 2 mg PRN Q2HR PRN 09/24/19 03:30 09/24/19 06:00 Ondansetron HCl (Zofran) 4 mg 1X ONCE 09/24/19 03:30 09/24/19 03:35 DC 09/24/19 04:21 4 MG Sodium Chloride 1,000 ml @ 125 mls/hr Q8H 09/24/19 03:30 09/25/19 03:29 09/24/19 04:15 125 MLS/HR Allergies Allergies Allergies Coded Allergies Type Severity Reaction Last Updated Verified No Known Drug Allergies 05/17/17 No Physical Exam Physical Exam Constitutional: Well nourished, mild distress, non-toxic appearance. [] HENT: Normocephalic, atraumatic. Eyes: PERRLA, EOMI, conjunctiva normal, no discharge. [] Neck: Normal range of motion, no tenderness, supple, no stridor. [] Cardiovascular:Heart rate regular rhythm, no murmur [] Lungs & Thorax: Bilateral breath sounds clear to auscultation [] Abdomen: Bowel sounds normal, soft, no tenderness, no masses, no pulsatile masses. Erythema and edema and tenderness of left side of perianal area, patient complaining of severe pain and does not let a digital exam complete evaluation of affected area Skin: Warm, dry, no erythema, no rash. [] Back: No tenderness, no CVA tenderness. [] Extremities: No tenderness, no cyanosis, no clubbing, ROM intact, no edema. [] Neurologic: Alert and oriented X 3, no focal deficits noted. [] Psychologic: Affect anxious,mood normal. [] Current Patient Data Vital Signs Vital Signs Date Time Temp Pulse Resp B/P (MAP) Pulse Ox O2 Delivery O2 Flow Rate FiO2 09/24/19 03:19 82 18 161/75 (103) 96 Room Air 09/24/19 02:43 99.1 99.1 EKG EKG [] Radiology/Procedures Radiology/Procedures [] Course & Med Decision Making Course & Med Decision Making Pertinent Labs reviewed. (See chart for details) Patient requiring admission for further evaluation and treatment. Discussed with Dr. Pappas who is in agreement with admission. Discussed findings and plan with patient and family, who acknowledge understanding and agreement. Dragon Disclaimer Dragon Disclaimer This electronic medical record was generated, in whole or in part, using a voice recognition dictation system. Departure Departure Impression: Primary Impression: Perianal abscess Additional Impression: Leukocytosis Disposition: 09 ADMITTED INPATIENT (At 0330) Admitting Physician: EDUARDO (Dr. Pappas accepted admission) Condition: STABLE Referrals: UNKNOWN PCP NAME (PCP) Problem Qualifiers Additional Impression: Leukocytosis Leukocytosis type: unspecified Qualified Codes: D72.829 - Elevated white blood cell count, unspecified SEJAL DAVIDSON MD Sep 24, 2019 03:34
[2019-09-24] MEDS: IV NORMAL SALINE 1000ML BAG 1,000 ML IV SCH ×3 (04:15→22:03)
[2019-09-24 04:33] LABS: BASO # 0.1 x10^3/uL (0.0-0.2); BASO % 1 % (0-3); EOS % 0 % (0-3); HEMATOCRIT 48.7 % (39.0-53.0); LYMPH # 2.9 x10^3/uL (1.0-4.8); LYMPH % 14 % (24-48); MEAN CORPUSCULAR HEMOGLOBIN 31 pg (25-35); MEAN CORPUSCULAR HGB CONC 35 g/dL (31-37); MEAN CORPUSCULAR VOLUME 88 fL (79-100); MONO % 10 % (0-9); NEUT # 15.3 x10^3/uL (1.8-7.7); NEUT % 75 % (31-73); PLATELET COUNT 301 x10^3/uL (140-400); RED BLOOD COUNT 5.55 x10^6/uL (4.30-5.70); RED CELL DISTRIBUTION WIDTH 14.6 % (11.5-14.5); WHITE BLOOD COUNT 20.2 x10^3/uL (4.0-11.0)
[2019-09-24 04:36] LABS: BILIRUBIN,URINE NEGATIVE (NEG); CLARITY,URINE CLEAR; COLOR,URINE YELLOW; NITRITE,URINE NEGATIVE (NEG); PROTEIN,URINE NEGATIVE (NEG-TRACE); UROBILINOGEN,URINE 0.2 mg/dL (0.2 mg/dL)
[2019-09-24 04:40] LABS: SQUAMOUS EPITHELIAL CELL,UR OCC /LPF
[2019-09-24 04:41] LABS: BACTERIA,URINE 0 /HPF (0-FEW); CALCIUM 9.4 mg/dL (8.5-10.1); CREATININE 1.2 mg/dL (0.7-1.3); GFR 76.9; POTASSIUM 4.2 mmol/L (3.5-5.1); RBC,URINE 0 /HPF (0-2); WBC,URINE RARE /HPF (0-4)
[2019-09-24 04:42] LABS: BARBITURATES NEG (NEG); BENZODIAZEPINES NEG (NEG); CANNABINOIDS NEG (NEG); COCAINE NEG (NEG); METHADONE NEG (NEG); OPIATES POS (NEG); PHENCYCLIDINE NEG (NEG)
[2019-09-24 04:43] LABS: AMPHETAMINE/METHAMPHETAMINE NEG (NEG)
[2019-09-24 04:47] LABS: ALBUMIN 3.5 g/dL (3.4-5.0); ALBUMIN/GLOBULIN RATIO 0.6 (1.0-1.7); TOTAL BILIRUBIN 0.8 mg/dL (0.2-1.0); TOTAL PROTEIN 8.9 g/dL (6.4-8.2)
[2019-09-24 04:49] LABS: PROTHROMBIN TIME PATIENT 12.2 SEC (11.7-14.0)
[2019-09-24 05:32] LABS: % BANDS 2 % (0-9); % LYMPHS 22 % (24-48); % MONOS 2 % (0-10); % SEGS 74 % (35-66); PLT ESTIMATE ADEQUATE (ADEQUATE)
--- NOTE | 2019-09-24 05:40 | NUR ---
Patient arrived to the unit at 0450 after receiving report from Erika in the ED. Patient has a complaint of pain of 9/10 on the left buttocks. Upon examination of buttocks the left buttocks behind the abscess is more firm and solid in comparison to the right buttocks. Photo of abscess taken and placed in chart at this time. Patient admission/assessment completed and documented. Patient was accompanied by female friend. Unable to state the names of medications so friend is going to his house to take pictures and send them to the patient. Bed placed in the lowest position and locked. Call light placed within reach of the patient, will continue to monitor patient at this time.
[2019-09-24] MEDS ORDERED: PIPERACILLIN/TAZOBACTAM 3.375 GM in IV NORMAL SALINE 50ML 50 ML IV ONE (05:45)
[2019-09-24] MEDS ORDERED: ATOR40TA59 PO (06:41)
[2019-09-24] MEDS ORDERED: LIDOCAINE 2% TOPICAL JELLY 5GM TUBE. TP ONE (08:45)
[2019-09-24] MEDS ORDERED: MORPHINE SULFATE 4 MG/ML VIAL. IV PRN (08:45)
[2019-09-24] MEDS ORDERED: IV RINGERS,LACTATED 1000ML 1,000 ML IV SCH (09:11)
[2019-09-24] MEDS ORDERED: HYDROmorphone 2 MG/ML VIAL IV PRN (09:15)
[2019-09-24] MEDS ORDERED: LIDOCAINE 1% PF 2 ML VIAL. ID PRN (09:15)
[2019-09-24] MEDS ORDERED: PROCHLORPERAZINE 10 MG/2 ML VIAL. IV PRN (09:15)
[2019-09-24] MEDS ORDERED: ONDANSETRON PF 4 MG/2 ML VIAL. IV PRN (09:15)
[2019-09-24] MEDS ORDERED: fentaNYL PF VIAL 100 MCG/2 ML VIAL IV PRN ×2 (09:15)
[2019-09-24] MEDS ORDERED: SEVOFLURANE 31 TO 60 MINUTES. IH ONE (09:38)
[2019-09-24] MEDS ORDERED: LIDOCAINE 2% PF 5 ML VIAL. ONE (09:38)
[2019-09-24] MEDS ORDERED: PROPOFOL 20 ML IV ONE (09:38)
[2019-09-24] MEDS ORDERED: fentaNYL PF VIAL 100 MCG/2 ML VIAL ONE (09:49)
[2019-09-24] MEDS ORDERED: SUCCINYLCHOLINE 200 MG/10 ML VIAL. ONE (09:59)
[2019-09-24] MEDS ORDERED: ROCURONIUM 50 MG/5 ML VIAL. ONE (09:59)
[2019-09-24] MEDS ORDERED: BUPIVACAINE-EPI 0.5%-1:200000 MPF 30 ML VIAL. ONE (10:04)
[2019-09-24] MEDS ORDERED: DEXAMETHASONE SOD PHOS 4 MG/ML VIAL ONE (10:33)
[2019-09-24] MEDS ORDERED: DESFLURANE 31 TO 60 MINUTES IH ONE (10:33)
[2019-09-24] MEDS ORDERED: PHENYLEPHRINE in 0.9% NACL PF 1 MG/10 ML SYRINGE. IV ONE (10:34)
[2019-09-24] MEDS ORDERED: GLYCOPYRROLATE 1 MG/5 ML VIAL. ONE (10:44)
[2019-09-24] MEDS ORDERED: NEOSTIGMINE METHYLSULFATE 5 MG/5 ML SYRINGE. ONE (10:44)
[2019-09-24] MEDS ORDERED: ONDANSETRON PF 4 MG/2 ML VIAL. ONE (10:44)
--- NOTE | 2019-09-24 11:07 | PDOC2 ---
CONSULT Date of Consult Date of Consult DATE: 09/24/19 TIME: 11:04 History of Present Illness Reason for Visit: Pt is 54 year old male with 5 day history of perirectal pain and swelling. He denies drainage or fever/chills. He arrived in the ER and was diagnosed with a perirectal abscess. Past Medical History Cardiovascular: HTN Musculoskeletal: low back pain Infectious disease: No pertinent hx Renal/: No pertinent hx Social History ALCOHOL: none Drugs: None Current Problem List Problem List Problems Medical Problems: (1) Leukocytosis Status: Acute (2) Perianal abscess Status: Acute Current Medications Current Medications Current Medications Ondansetron HCl (Zofran) 4 mg 1X ONCE IVP Last administered on 09/24/19at 04:21; Start 09/24/19 at 03:30; Stop 09/24/19 at 03:35; Status DC Morphine Sulfate (Morphine Sulfate) 4 mg 1X ONCE IV Last administered on 09/24/19at 04:18; Start 09/24/19 at 03:30; Stop 09/24/19 at 03:35; Status DC Morphine Sulfate (Morphine Sulfate) 2 mg PRN Q2HR PRN IV PAIN; Start 09/24/19 at 03:30; Stop 09/24/19 at 06:00; Status DC Sodium Chloride 1,000 ml @ 125 mls/hr Q8H IV Last administered on 09/24/19at 04:15; Start 09/24/19 at 03:30; Stop 09/25/19 at 03:29 Piperacillin Sod/ Tazobactam Sod 3.375 gm/Sodium Chloride 50 ml @ 100 mls/hr 1X ONCE IV Last administered on 09/24/19at 05:45; Start 09/24/19 at 05:45; Stop 09/23 at 06:14; Status DC Morphine Sulfate (Morphine Sulfate) 4 mg PRN Q2HR PRN IV PAIN Last administered on 09/24/19at 08:53; Start 09/24/19 at 08:45 Lidocaine HCl (Xylocaine 2% Topical 5gm Tube) 1 ty 1X ONCE TP ; Start 09/24/19 at 08:45; Stop 09/24/19 at 08:46; Status DC Ondansetron HCl (Zofran) 4 mg PRN Q6HRS PRN IV NAUSEA/VOMITING; Start 09/24/19 at 09:15; Stop 09/25/19 at 09:14 Fentanyl Citrate (Fentanyl 2ml Vial) 25 mcg PRN Q5MIN PRN IV MILD PAIN 1-3; Start 09/24/19 at 09:15; Stop 09/25/19 at 09:14 Fentanyl Citrate (Fentanyl 2ml Vial) 50 mcg PRN Q5MIN PRN IV MODERATE TO SEVERE PAIN; Start 09/24/19 at 09:15; Stop 09/25/19 at 09:14 Morphine Sulfate (Morphine Sulfate) 1 mg PRN Q10MIN PRN IV SEVERE PAIN 7-10; Start 09/24/19 at 09:15; Stop 09/25/19 at 09:14 Ringer's Solution 1,000 ml @ 30 mls/hr Q24H IV ; Start 09/24/19 at 09:11; Stop 09/24/19 at 21:10 Lidocaine HCl (Xylocaine-Mpf 1% 2ml Vial) 2 ml 1X PRN PRN ID IV START; Start 09/24/19 at 09:15; Stop 09/25/19 at 09:14 Hydromorphone HCl (Dilaudid) 0.5 mg PRN Q10MIN PRN IV SEV PAIN, Second choice; Start 09/24/19 at 09:15; Stop 09/25/19 at 09:14 Prochlorperazine Edisylate (Compazine) 5 mg PACU PRN PRN IV NAUSEA, MRX1; Start 09/24/19 at 09:15; Stop 09/25/19 at 09:14 Sevoflurane (Ultane) 30 ml STK-MED ONCE IH ; Start 09/24/19 at 09:38; Stop 09/24/19 at 09:39; Status DC Propofol 20 ml @ As Directed STK-MED ONCE IV ; Start 09/24/19 at 09:38; Stop 09/24/19 at 09:39; Status DC Lidocaine HCl (Lidocaine Pf 2% Vial) 5 ml STK-MED ONCE .ROUTE ; Start 09/24/19 at 09:38; Stop 09/24/19 at 09:39; Status DC Fentanyl Citrate (Fentanyl 2ml Vial) 100 mcg STK-MED ONCE .ROUTE ; Start 09/24/19 at 09:49; Stop 09/24/19 at 09:50; Status DC Succinylcholine Chloride (Anectine) 200 mg STK-MED ONCE .ROUTE ; Start 09/24/19 at 09:59; Stop 09/24/19 at 09:59; Status DC Rocuronium [place] (Zemuron) 50 mg STK-MED ONCE .ROUTE ; Start 09/24/19 at 09:59; Stop 09/24/19 at 09:59; Status DC Bupivacaine HCl/ Epinephrine Bitart (Sensorcain-Epi 0.5%-1:[id number] Mpf) 30 ml STK-MED ONCE .ROUTE ; Start 09/24/19 at 10:04; Stop 09/24/19 at 10:04; Status DC Dexamethasone Sodium Phosphate (Decadron) 4 mg STK-MED ONCE .ROUTE ; Start 09/24/19 at 10:33; Stop 09/24/19 at 10:33; Status DC Desflurane (Suprane) 30 ml STK-MED ONCE IH ; Start 09/24/19 at 10:33; Stop 09/24/19 at 10:33; Status DC Phenylephrine HCl (PHENYLEPHRINE in 0.9% NACL PF) 1 mg STK-MED ONCE IV ; Start 09/24/19 at 10:34; Stop 09/24/19 at 10:34; Status DC Ondansetron HCl (Zofran) 4 mg STK-MED ONCE .ROUTE ; Start 09/24/19 at 10:44; Stop 09/24/19 at 10:44; Status DC Glycopyrrolate (Robinul) 1 mg STK-MED ONCE .ROUTE ; Start 09/24/19 at 10:44; Stop 09/24/19 at 10:44; Status DC Neostigmine [place] (Neostigmine Methylsulfate) 5 mg STK-MED ONCE .ROUTE ; Start 09/24/19 at 10:44; Stop 09/24/19 at 10:45; Status DC Active Scripts Active Miralax (Polyethylene Glycol 3350) 17 Gm Powd.pack 1 Packet PO DAILY PRN Colace (Docusate Sodium) 100 Mg Capsule 100 Mg PO BID Augmentin 875-125 Tablet (Amoxicillin/Potassium Clav) 1 Each Tablet 1 Tab PO BID Oxycodone-Acetaminophen 5-325 (Oxycodone Hcl/Acetaminophen) 1 Each Tablet 1 Tab PO PRN Q4HRS PRN Reported Atorvastatin Calcium 40 Mg Tablet 1 Tab PO QHS Allergies Allergies: Coded Allergies: No Known Drug Allergies (Unverified , 05/17/17) ROS General: No: Chills, Night Sweats, Fatigue, Malaise, Appetite, Other PSYCHOLOGICAL ROS: No: Anxiety, Behavioral Disorder, Concentration difficultie, Decreased libido, Depression, Disorientation, Hallucinations, Hostility, Irritablity, Memory difficulties, Mood Swings, Obsessive thoughts, Physical abuse, Sexual abuse, Sleep disturbances, Suicidal ideation, Other Eyes: No Blurry vision, No Decreased vision, No Double vision, No Dry eyes, No Excessive tearing, No Eye Pain, No Itchy Eyes, No Loss of vision, No Photophobia, No Scotomata, No Uses contacts, No Uses glasses, No Other HEENT: No: Heacaches, Visual Changes, Hearing change, Nasal congestion, Nasal discharge, Oral lesions, Sinus pain, Sore Throat, Epistaxis, Sneezing, Snoring, Tinnitus, Vertigo, Vocal changes, Other ALLERGY AND IMMUNOLOGY: No: Hives, Insect Bite Sensitivity, Itchy/Watery Eyes, Nasal Congestion, Post Nasal Drip, Seasonal Allergies, Other ENDOCRINE: No: Breast Changes, Galactorrhea, Hair Pattern Changes, Hot Flashes, Malaise/lethargy, Mood Swings, Palpitations, Polydipsia/polyuria, Skin Changes, Temperature Intolerance, Unexpected Weight Changes, Other Respiratory: No: Cough, Hemoptysis, Orthopnea, Pleuritic Pain, Shortness of breath, SOB with excertion, Sputum Changes, Stridor, Tachypnea, Wheezing, Other Cardiovascular: No Chest Pain, No Palpitations, No Orthopnea, No Paroxysmal Noc. Dyspnea, No Edema, No Lt Headedness, No Other Genitourinary: No Dysuria, No Frequency, No Incontinence, No Hematuria, No Retention, No Discharge, No Urgency, No Pain, No Flank Pain, No Other, No , No , No , No , No , No , No Musculoskeletal: No Gait Disturbance, No Joint Pain, No Joint Stiffness, No Joint Swelling, No Muscle Pain, No Muscular Weakness, No Pain In:, No Swelling In:, No Other Neurological: No Behavorial Changes, No Bowel/Bladder ControlChng, No Confusion, No Dizziness, No Gait Disturbance, No Headaches, No Impaired Coord/balance, No Memory Loss, No Numbness/Tingling, No Seizures, No Speech Problems, No Tremors, No Visual Changes, No Weakness, No Other Skin: No Dry Skin, No Eczema, No Hair Changes, No Lumps, No Mole Changes, No Mottling, No Nail Changes, No Pruritus, No Rash, No Skin Lesion Changes, No Other, No Acne Physical Exam Physical Exam pain and swelling along left perirectal tissues General: Alert, Oriented X3, Other (uncomfortable, unpleasant) HEENT: Atraumatic Lungs: Clear to auscultation Heart: Regular rate Abdomen: Soft, No tenderness Skin: No rashes, No breakdown Neuro: Normal speech Psych/Mental Status: Mental status NL Vitals VITALS Vital Signs Date Time Temp Pulse Resp B/P (MAP) Pulse Ox O2 Delivery O2 Flow Rate FiO2 09/24/19 09:41 99.2 77 17 135/84 94 Room Air 99.2 Labs Labs Laboratory Tests Test 09/24/19 04:07 09/24/19 06:50 White Blood Count 20.2 x10^3/uL (4.0-11.0) Red Blood Count 5.55 x10^6/uL (4.30-5.70) Hemoglobin 17.0 g/dL (13.0-17.5) Hematocrit 48.7 % (39.0-53.0) Mean Corpuscular Volume 88 fL (79-100) Mean Corpuscular Hemoglobin 31 pg (25-35) Mean Corpuscular Hemoglobin Concent 35 g/dL (31-37) Red Cell Distribution Width 14.6 % (11.5-14.5) Platelet Count 301 x10^3/uL (140-400) Neutrophils (%) (Auto) 75 % (31-73) Lymphocytes (%) (Auto) 14 % (24-48) Monocytes (%) (Auto) 10 % (0-9) Eosinophils (%) (Auto) 0 % (0-3) Basophils (%) (Auto) 1 % (0-3) Neutrophils # (Auto) 15.3 x10^3/uL (1.8-7.7) Lymphocytes # (Auto) 2.9 x10^3/uL (1.0-4.8) Monocytes # (Auto) 2.0 x10^3/uL (0.0-1.1) Eosinophils # (Auto) 0.0 x10^3/uL (0.0-0.7) Basophils # (Auto) 0.1 x10^3/uL (0.0-0.2) Segmented Neutrophils % 74 % (35-66) Band Neutrophils % 2 % (0-9) Lymphocytes % 22 % (24-48) Monocytes % 2 % (0-10) Platelet Estimate Adequate (ADEQUATE) Prothrombin Time 12.2 SEC (11.7-14.0) Prothromb Time International Ratio 0.9 (0.8-1.1) Urine Collection Type Unknown Urine Color Yellow Urine Clarity Clear Urine pH 5.0 Urine Specific [place] 1.020 Urine Protein Negative mg/dL (NEG-TRACE) Urine Glucose (UA) Negative mg/dL (NEG) Urine Ketones (Stick) 15 mg/dL (NEG) Urine Blood Negative (NEG) Urine Nitrite Negative (NEG) Urine Bilirubin Negative (NEG) Urine Urobilinogen Dipstick 0.2 mg/dL (0.2 mg/dL) Urine Leukocyte Esterase Negative (NEG) Urine RBC 0 /HPF (0-2) Urine WBC Rare /HPF (0-4) Urine Squamous Epithelial Cells Occ /LPF Urine Bacteria 0 /HPF (0-FEW) Urine Mucus Slight /LPF Sodium Level 132 mmol/L (136-145) Potassium Level 4.2 mmol/L (3.5-5.1) Chloride Level 97 mmol/L (98-107) Carbon Dioxide Level 22 mmol/L (21-32) Anion Gap 13 (6-14) Blood Urea Nitrogen 14 mg/dL (8-26) Creatinine 1.2 mg/dL (0.7-1.3) Estimated GFR (Cockcroft-Gault) 76.9 BUN/Creatinine Ratio 12 (6-20) Glucose Level 106 mg/dL (70-99) Calcium Level 9.4 mg/dL (8.5-10.1) Total Bilirubin 0.8 mg/dL (0.2-1.0) Aspartate Amino Transf (AST/SGOT) 19 U/L (15-37) Alanine Aminotransferase (ALT/SGPT) 21 U/L (16-63) Alkaline Phosphatase 107 U/L (46-116) Total Protein 8.9 g/dL (6.4-8.2) Albumin 3.5 g/dL (3.4-5.0) Albumin/Globulin Ratio 0.6 (1.0-1.7) Urine Opiates Screen Pos (NEG) Urine Methadone Screen Neg (NEG) Urine Barbiturates Neg (NEG) Urine Phencyclidine Screen Neg (NEG) Urine Amphetamine/Methamphetamine Neg (NEG) Urine Benzodiazepines Screen Neg (NEG) Urine Cocaine Screen Neg (NEG) Urine Cannabinoids Screen Neg (NEG) Urine Ethyl Alcohol Neg (NEG) Lactic Acid Level 1.0 mmol/L (0.4-2.0) Laboratory Tests Test 09/24/19 04:07 09/24/19 06:50 White Blood Count 20.2 x10^3/uL (4.0-11.0) Red Blood Count 5.55 x10^6/uL (4.30-5.70) Hemoglobin 17.0 g/dL (13.0-17.5) Hematocrit 48.7 % (39.0-53.0) Mean Corpuscular Volume 88 fL (79-100) Mean Corpuscular Hemoglobin 31 pg (25-35) Mean Corpuscular Hemoglobin Concent 35 g/dL (31-37) Red Cell Distribution Width 14.6 % (11.5-14.5) Platelet Count 301 x10^3/uL (140-400) Neutrophils (%) (Auto) 75 % (31-73) Lymphocytes (%) (Auto) 14 % (24-48) Monocytes (%) (Auto) 10 % (0-9) Eosinophils (%) (Auto) 0 % (0-3) Basophils (%) (Auto) 1 % (0-3) Neutrophils # (Auto) 15.3 x10^3/uL (1.8-7.7) Lymphocytes # (Auto) 2.9 x10^3/uL (1.0-4.8) Monocytes # (Auto) 2.0 x10^3/uL (0.0-1.1) Eosinophils # (Auto) 0.0 x10^3/uL (0.0-0.7) Basophils # (Auto) 0.1 x10^3/uL (0.0-0.2) Segmented Neutrophils % 74 % (35-66) Band Neutrophils % 2 % (0-9) Lymphocytes % 22 % (24-48) Monocytes % 2 % (0-10) Platelet Estimate Adequate (ADEQUATE) Prothrombin Time 12.2 SEC (11.7-14.0) Prothromb Time International Ratio 0.9 (0.8-1.1) Urine Collection Type Unknown Urine Color Yellow Urine Clarity Clear Urine pH 5.0 Urine Specific [place] 1.020 Urine Protein Negative mg/dL (NEG-TRACE) Urine Glucose (UA) Negative mg/dL (NEG) Urine Ketones (Stick) 15 mg/dL (NEG) Urine Blood Negative (NEG) Urine Nitrite Negative (NEG) Urine Bilirubin Negative (NEG) Urine Urobilinogen Dipstick 0.2 mg/dL (0.2 mg/dL) Urine Leukocyte Esterase Negative (NEG) Urine RBC 0 /HPF (0-2) Urine WBC Rare /HPF (0-4) Urine Squamous Epithelial Cells Occ /LPF Urine Bacteria 0 /HPF (0-FEW) Urine Mucus Slight /LPF Sodium Level 132 mmol/L (136-145) Potassium Level 4.2 mmol/L (3.5-5.1) Chloride Level 97 mmol/L (98-107) Carbon Dioxide Level 22 mmol/L (21-32) Anion Gap 13 (6-14) Blood Urea Nitrogen 14 mg/dL (8-26) Creatinine 1.2 mg/dL (0.7-1.3) Estimated GFR (Cockcroft-Gault) 76.9 BUN/Creatinine Ratio 12 (6-20) Glucose Level 106 mg/dL (70-99) Calcium Level 9.4 mg/dL (8.5-10.1) Total Bilirubin 0.8 mg/dL (0.2-1.0) Aspartate Amino Transf (AST/SGOT) 19 U/L (15-37) Alanine Aminotransferase (ALT/SGPT) 21 U/L (16-63) Alkaline Phosphatase 107 U/L (46-116) Total Protein 8.9 g/dL (6.4-8.2) Albumin 3.5 g/dL (3.4-5.0) Albumin/Globulin Ratio 0.6 (1.0-1.7) Urine Opiates Screen Pos (NEG) Urine Methadone Screen Neg (NEG) Urine Barbiturates Neg (NEG) Urine Phencyclidine Screen Neg (NEG) Urine Amphetamine/Methamphetamine Neg (NEG) Urine Benzodiazepines Screen Neg (NEG) Urine Cocaine Screen Neg (NEG) Urine Cannabinoids Screen Neg (NEG) Urine Ethyl Alcohol Neg (NEG) Lactic Acid Level 1.0 mmol/L (0.4-2.0) Assessment/Plan Assessment/Plan Perirectal abscess, recommend I and D in OR. The details and risks of surgery were discussed, he understands and would like to proceed. NESTOR LOWRY MD Sep 24, 2019 11:06
--- NOTE | 2019-09-24 11:09 | PDOC4 ---
Operative Note Operative Note Operative Note: Preoperative Diagnosis: Perirectal abscess Postoperative Diagnosis: Same Procedure: Incision and drainage of perirectal abscess Surgeon: Silvio Anesthesia: Gen. EBL: 10 mL Specimen: Cultures to micrology Drains: None Complications: None Indication: The patient is a 54-year-old male presented with a perirectal abscess. He was offered surgical treatment with incision and drainage. The details and risks of surgery were discussed. The risks include bleeding, infection, scar tissue, anesthetic risk, recurrence, potential need for additional surgery or procedure. He understands and would like to proceed. Description: The patient was taken to the operating room and placed supine on the operating table. Gen. anesthesia was performed. He was then placed in prone jackknife. The perianal skin was prepped with Betadine and draped in a standard surgical manner. Initial inspection showed fluctuance with induration along the left perirectal tissues. With a scalpel an incision was made overlying the skin in the fluctuant area with immediate return of brown purulent fluid under pressure. Cultures of the fluid were obtained and sent to microbiology. Incision was extended some to facilitate drainage. The entire cavity was fully drained and irrigated with sterile saline. The cavity was then packed with sterile gauze and a dressing was applied. The patient tolerated the procedure well and was sent to the recovery room in stable condition. At the end of the case all counts were correct. NESTOR LOWRY MD Sep 24, 2019 11:09
--- NOTE | 2019-09-24 11:52 | PDOC1 ---
History and Physical Date of Admission Date of Admission DATE: 09/24/19 TIME: 11:48 Source Source: Chart review, Patient History of Present Illness History of Present Illness Jerry, is a 54 year old male with history of dyslipidemia and rectal abscess 2017 admit with days of worsening severe pain, pain to rectum, he thinks is started becuase he waited too long to stool, which he calls "going Vela Vela" . Patient complaining of painful area in perineal area with swelling that would be consistent with abscess for the last 5 days without discharge he has not stooled for days, severe pain, Patient denies fever and chills, nausea vomiting, abdominal pain. Patient had rectal abscess in 2017 that was treated surgically. Past Medical History Cardiovascular: HTN Musculoskeletal: low back pain Infectious disease: No pertinent hx Renal/: No pertinent hx Past Surgical History Past Surgical History: Other (rectal abcess 2017) Family History Family History: No Significant Social History Smoke: <1 pack per day ALCOHOL: none Drugs: None Current Problem List Problem List Problems Medical Problems: (1) Leukocytosis Status: Acute (2) Perianal abscess Status: Acute Current Medications Current Medications Current Medications Ondansetron HCl (Zofran) 4 mg 1X ONCE IVP Last administered on 09/24/19at 04:21; Start 09/24/19 at 03:30; Stop 09/24/19 at 03:35; Status DC Morphine Sulfate (Morphine Sulfate) 4 mg 1X ONCE IV Last administered on 09/24/19at 04:18; Start 09/24/19 at 03:30; Stop 09/24/19 at 03:35; Status DC Morphine Sulfate (Morphine Sulfate) 2 mg PRN Q2HR PRN IV PAIN; Start 09/24/19 at 03:30; Stop 09/24/19 at 06:00; Status DC Sodium Chloride 1,000 ml @ 125 mls/hr Q8H IV Last administered on 09/24/19at 04:15; Start 09/24/19 at 03:30; Stop 09/25/19 at 03:29 Piperacillin Sod/ Tazobactam Sod 3.375 gm/Sodium Chloride 50 ml @ 100 mls/hr 1X ONCE IV Last administered on 09/24/19at 05:45; Start 09/24/19 at 05:45; Stop 09/24/19 at 06:14; Status DC Morphine Sulfate (Morphine Sulfate) 4 mg PRN Q2HR PRN IV PAIN Last administered on 09/24/19at 08:53; Start 09/24/19 at 08:45 Lidocaine HCl (Xylocaine 2% Topical 5gm Tube) 1 ty 1X ONCE TP ; Start 09/24/19 at 08:45; Stop 09/24/19 at 08:46; Status DC Ondansetron HCl (Zofran) 4 mg PRN Q6HRS PRN IV NAUSEA/VOMITING; Start 09/24/19 at 09:15; Stop 09/25/19 at 09:14 Fentanyl Citrate (Fentanyl 2ml Vial) 25 mcg PRN Q5MIN PRN IV MILD PAIN 1-3; Start 09/24/19 at 09:15; Stop 09/25/19 at 09:14 Fentanyl Citrate (Fentanyl 2ml Vial) 50 mcg PRN Q5MIN PRN IV MODERATE TO SEVERE PAIN; Start 09/24/19 at 09:15; Stop 09/25/19 at 09:14 Morphine Sulfate (Morphine Sulfate) 1 mg PRN Q10MIN PRN IV SEVERE PAIN 7-10; Start 09/24/19 at 09:15; Stop 09/25/19 at 09:14 Ringer's Solution 1,000 ml @ 30 mls/hr Q24H IV ; Start 09/24/19 at 09:11; Stop 09/24/19 at 21:10 Lidocaine HCl (Xylocaine-Mpf 1% 2ml Vial) 2 ml 1X PRN PRN ID IV START; Start 09/24/19 at 09:15; Stop 09/25/19 at 09:14 Hydromorphone HCl (Dilaudid) 0.5 mg PRN Q10MIN PRN IV SEV PAIN, Second choice; Start 09/24/19 at 09:15; Stop 09/25/19 at 09:14 Prochlorperazine Edisylate (Compazine) 5 mg PACU PRN PRN IV NAUSEA, MRX1; Start 09/24/19 at 09:15; Stop 09/25/19 at 09:14 Sevoflurane (Ultane) 30 ml STK-MED ONCE IH ; Start 09/24/19 at 09:38; Stop 09/24/19 at 09:39; Status DC Propofol 20 ml @ As Directed STK-MED ONCE IV ; Start 09/24/19 at 09:38; Stop 09/24/19 at 09:39; Status DC Lidocaine HCl (Lidocaine Pf 2% Vial) 5 ml STK-MED ONCE .ROUTE ; Start 09/24/19 at 09:38; Stop 09/24/19 at 09:39; Status DC Fentanyl Citrate (Fentanyl 2ml Vial) 100 mcg STK-MED ONCE .ROUTE ; Start 09/24/19 at 09:49; Stop 09/24/19 at 09:50; Status DC Succinylcholine Chloride (Anectine) 200 mg STK-MED ONCE .ROUTE ; Start 09/24/19 at 09:59; Stop 09/24/19 at 09:59; Status DC Rocuronium [place] (Zemuron) 50 mg STK-MED ONCE .ROUTE ; Start 09/24/19 at 09:59; Stop 09/24/19 at 09:59; Status DC Bupivacaine HCl/ Epinephrine Bitart (Sensorcain-Epi 0.5%-1:560698 Mpf) 30 ml STK-MED ONCE .ROUTE ; Start 09/24/19 at 10:04; Stop 09/24/19 at 10:04; Status DC Dexamethasone Sodium Phosphate (Decadron) 4 mg STK-MED ONCE .ROUTE ; Start 09/24/19 at 10:33; Stop 09/24/19 at 10:33; Status DC Desflurane (Suprane) 30 ml STK-MED ONCE IH ; Start 09/24/19 at 10:33; Stop 09/24/19 at 10:33; Status DC Phenylephrine HCl (PHENYLEPHRINE in 0.9% NACL PF) 1 mg STK-MED ONCE IV ; Start 09/24/19 at 10:34; Stop 09/24/19 at 10:34; Status DC Ondansetron HCl (Zofran) 4 mg STK-MED ONCE .ROUTE ; Start 09/24/19 at 10:44; Stop 09/24/19 at 10:44; Status DC Glycopyrrolate (Robinul) 1 mg STK-MED ONCE .ROUTE ; Start 09/24/19 at 10:44; Stop 09/24/19 at 10:44; Status DC Neostigmine [place] (Neostigmine Methylsulfate) 5 mg STK-MED ONCE .ROUTE ; Start 09/24/19 at 10:44; Stop 09/24/19 at 10:45; Status DC Oxycodone/ Acetaminophen (Percocet 5/325) 1 tab PRN Q4HRS PRN PO MODERATE PAIN; Start 09/24/19 at 11:15 Oxycodone/ Acetaminophen (Percocet 5/325) 2 tab PRN Q4HRS PRN PO SEVERE PAIN; Start 09/24/19 at 11:15 Active Scripts Active Miralax (Polyethylene Glycol 3350) 17 Gm Powd.pack 1 Packet PO DAILY PRN Colace (Docusate Sodium) 100 Mg Capsule 100 Mg PO BID Augmentin 875-125 Tablet (Amoxicillin/Potassium Clav) 1 Each Tablet 1 Tab PO BID Oxycodone-Acetaminophen 5-325 (Oxycodone Hcl/Acetaminophen) 1 Each Tablet 1 Tab PO PRN Q4HRS PRN Reported Atorvastatin Calcium 40 Mg Tablet 1 Tab PO QHS Allergies Allergies: Coded Allergies: No Known Drug Allergies (Unverified , 05/17/17) Physical Exam General: Alert, moderate distress, Other (agiated, frustrated that nothing was done for 5 hours this AM) HEENT: PERRLA Abdomen: Normal bowel sounds, Soft Extremities: No cyanosis, No edema Skin: No significant lesion Neuro: Sensation intact Psych/Mental Status: Other (agitated) Vitals Vitals Vital Signs Date Time Temp Pulse Resp B/P (MAP) Pulse Ox O2 Delivery O2 Flow Rate FiO2 09/24/19 11:20 98.7 70 22 169/80 97 Simple Mask 10 98.7 Labs Labs Laboratory Tests Test 09/24/19 04:07 09/24/19 06:50 White Blood Count 20.2 x10^3/uL (4.0-11.0) Red Blood Count 5.55 x10^6/uL (4.30-5.70) Hemoglobin 17.0 g/dL (13.0-17.5) Hematocrit 48.7 % (39.0-53.0) Mean Corpuscular Volume 88 fL (79-100) Mean Corpuscular Hemoglobin 31 pg (25-35) Mean Corpuscular Hemoglobin Concent 35 g/dL (31-37) Red Cell Distribution Width 14.6 % (11.5-14.5) Platelet Count 301 x10^3/uL (140-400) Neutrophils (%) (Auto) 75 % (31-73) Lymphocytes (%) (Auto) 14 % (24-48) Monocytes (%) (Auto) 10 % (0-9) Eosinophils (%) (Auto) 0 % (0-3) Basophils (%) (Auto) 1 % (0-3) Neutrophils # (Auto) 15.3 x10^3/uL (1.8-7.7) Lymphocytes # (Auto) 2.9 x10^3/uL (1.0-4.8) Monocytes # (Auto) 2.0 x10^3/uL (0.0-1.1) Eosinophils # (Auto) 0.0 x10^3/uL (0.0-0.7) Basophils # (Auto) 0.1 x10^3/uL (0.0-0.2) Segmented Neutrophils % 74 % (35-66) Band Neutrophils % 2 % (0-9) Lymphocytes % 22 % (24-48) Monocytes % 2 % (0-10) Platelet Estimate Adequate (ADEQUATE) Prothrombin Time 12.2 SEC (11.7-14.0) Prothromb Time International Ratio 0.9 (0.8-1.1) Urine Collection Type Unknown Urine Color Yellow Urine Clarity Clear Urine pH 5.0 Urine Specific [place] 1.020 Urine Protein Negative mg/dL (NEG-TRACE) Urine Glucose (UA) Negative mg/dL (NEG) Urine Ketones (Stick) 15 mg/dL (NEG) Urine Blood Negative (NEG) Urine Nitrite Negative (NEG) Urine Bilirubin Negative (NEG) Urine Urobilinogen Dipstick 0.2 mg/dL (0.2 mg/dL) Urine Leukocyte Esterase Negative (NEG) Urine RBC 0 /HPF (0-2) Urine WBC Rare /HPF (0-4) Urine Squamous Epithelial Cells Occ /LPF Urine Bacteria 0 /HPF (0-FEW) Urine Mucus Slight /LPF Sodium Level 132 mmol/L (136-145) Potassium Level 4.2 mmol/L (3.5-5.1) Chloride Level 97 mmol/L (98-107) Carbon Dioxide Level 22 mmol/L (21-32) Anion Gap 13 (6-14) Blood Urea Nitrogen 14 mg/dL (8-26) Creatinine 1.2 mg/dL (0.7-1.3) Estimated GFR (Cockcroft-Gault) 76.9 BUN/Creatinine Ratio 12 (6-20) Glucose Level 106 mg/dL (70-99) Calcium Level 9.4 mg/dL (8.5-10.1) Total Bilirubin 0.8 mg/dL (0.2-1.0) Aspartate Amino Transf (AST/SGOT) 19 U/L (15-37) Alanine Aminotransferase (ALT/SGPT) 21 U/L (16-63) Alkaline Phosphatase 107 U/L (46-116) Total Protein 8.9 g/dL (6.4-8.2) Albumin 3.5 g/dL (3.4-5.0) Albumin/Globulin Ratio 0.6 (1.0-1.7) Urine Opiates Screen Pos (NEG) Urine Methadone Screen Neg (NEG) Urine Barbiturates Neg (NEG) Urine Phencyclidine Screen Neg (NEG) Urine Amphetamine/Methamphetamine Neg (NEG) Urine Benzodiazepines Screen Neg (NEG) Urine Cocaine Screen Neg (NEG) Urine Cannabinoids Screen Neg (NEG) Urine Ethyl Alcohol Neg (NEG) Lactic Acid Level 1.0 mmol/L (0.4-2.0) Laboratory Tests Test 09/24/19 04:07 09/24/19 06:50 White Blood Count 20.2 x10^3/uL (4.0-11.0) Red Blood Count 5.55 x10^6/uL (4.30-5.70) Hemoglobin 17.0 g/dL (13.0-17.5) Hematocrit 48.7 % (39.0-53.0) Mean Corpuscular Volume 88 fL (79-100) Mean Corpuscular Hemoglobin 31 pg (25-35) Mean Corpuscular Hemoglobin Concent 35 g/dL (31-37) Red Cell Distribution Width 14.6 % (11.5-14.5) Platelet Count 301 x10^3/uL (140-400) Neutrophils (%) (Auto) 75 % (31-73) Lymphocytes (%) (Auto) 14 % (24-48) Monocytes (%) (Auto) 10 % (0-9) Eosinophils (%) (Auto) 0 % (0-3) Basophils (%) (Auto) 1 % (0-3) Neutrophils # (Auto) 15.3 x10^3/uL (1.8-7.7) Lymphocytes # (Auto) 2.9 x10^3/uL (1.0-4.8) Monocytes # (Auto) 2.0 x10^3/uL (0.0-1.1) Eosinophils # (Auto) 0.0 x10^3/uL (0.0-0.7) Basophils # (Auto) 0.1 x10^3/uL (0.0-0.2) Segmented Neutrophils % 74 % (35-66) Band Neutrophils % 2 % (0-9) Lymphocytes % 22 % (24-48) Monocytes % 2 % (0-10) Platelet Estimate Adequate (ADEQUATE) Prothrombin Time 12.2 SEC (11.7-14.0) Prothromb Time International Ratio 0.9 (0.8-1.1) Urine Collection Type Unknown Urine Color Yellow Urine Clarity Clear Urine pH 5.0 Urine Specific [place] 1.020 Urine Protein Negative mg/dL (NEG-TRACE) Urine Glucose (UA) Negative mg/dL (NEG) Urine Ketones (Stick) 15 mg/dL (NEG) Urine Blood Negative (NEG) Urine Nitrite Negative (NEG) Urine Bilirubin Negative (NEG) Urine Urobilinogen Dipstick 0.2 mg/dL (0.2 mg/dL) Urine Leukocyte Esterase Negative (NEG) Urine RBC 0 /HPF (0-2) Urine WBC Rare /HPF (0-4) Urine Squamous Epithelial Cells Occ /LPF Urine Bacteria 0 /HPF (0-FEW) Urine Mucus Slight /LPF Sodium Level 132 mmol/L (136-145) Potassium Level 4.2 mmol/L (3.5-5.1) Chloride Level 97 mmol/L (98-107) Carbon Dioxide Level 22 mmol/L (21-32) Anion Gap 13 (6-14) Blood Urea Nitrogen 14 mg/dL (8-26) Creatinine 1.2 mg/dL (0.7-1.3) Estimated GFR (Cockcroft-Gault) 76.9 BUN/Creatinine Ratio 12 (6-20) Glucose Level 106 mg/dL (70-99) Calcium Level 9.4 mg/dL (8.5-10.1) Total Bilirubin 0.8 mg/dL (0.2-1.0) Aspartate Amino Transf (AST/SGOT) 19 U/L (15-37) Alanine Aminotransferase (ALT/SGPT) 21 U/L (16-63) Alkaline Phosphatase 107 U/L (46-116) Total Protein 8.9 g/dL (6.4-8.2) Albumin 3.5 g/dL (3.4-5.0) Albumin/Globulin Ratio 0.6 (1.0-1.7) Urine Opiates Screen Pos (NEG) Urine Methadone Screen Neg (NEG) Urine Barbiturates Neg (NEG) Urine Phencyclidine Screen Neg (NEG) Urine Amphetamine/Methamphetamine Neg (NEG) Urine Benzodiazepines Screen Neg (NEG) Urine Cocaine Screen Neg (NEG) Urine Cannabinoids Screen Neg (NEG) Urine Ethyl Alcohol Neg (NEG) Lactic Acid Level 1.0 mmol/L (0.4-2.0) VTE Prophylaxis Ordered VTE Prophylaxis Devices: No VTE Pharmacological Prophylaxi: No Assessment/Plan Assessment/Plan acute rectal pain, rectal abcess with severe pain sepsis, tachycardia and leukocytosis tobacco use disorder BMI 36, obese anxiety and agitation related to medical condition, will need OR today, gen surg following, SALIMA MACIAS MD Sep 24, 2019 11:52
[2019-09-24] MEDS ORDERED: POLYETHYLENE GLYCOL 3350 17 GM PACKET. PO PRN (12:00)
--- NOTE | 2019-09-24 12:08 | NUR ---
SW following. Discussed with RN, pt from home with family. RN advised no SW needs at this time. SW will continue to follow.
[2019-09-24] MEDS ORDERED: PIP/TAZO PER PHARMACY MC PRN (12:15)
[2019-09-24] MEDS: oxyCODONE/APAP 5/325 1 TAB TABLET PO PRN (12:52)
[2019-09-24] MEDS: PIPERACILLIN/TAZOBACTAM 3.375 GM in IV NORMAL SALINE 50ML 50 ML IV SCH ×3 (13:20→23:46)
[2019-09-24] MEDS: DOCUSATE SODIUM 100 MG CAPSULE. PO SCH (13:43)
[2019-09-24] MEDS: POLYETHYLENE GLYCOL 3350 17 GM PACKET. PO SCH (13:43)
--- NOTE | 2019-09-24 14:34 | NUR ---
wound care patient had surgery today, wound care will f/u tomorrow.
[2019-09-25] MEDS: oxyCODONE/APAP 5/325 1 TAB TABLET PO PRN ×3 (01:56→11:03)
[2019-09-25 03:00] VITALS: BP 104/46
[2019-09-25] MEDS: PIPERACILLIN/TAZOBACTAM 3.375 GM in IV NORMAL SALINE 50ML 50 ML IV SCH ×4 (05:23→23:21)
[2019-09-25 07:00] VITALS: BP 115/59
[2019-09-25] MEDS: DOCUSATE SODIUM 100 MG CAPSULE. PO SCH (08:22)
[2019-09-25] MEDS: POLYETHYLENE GLYCOL 3350 17 GM PACKET. PO SCH ×2 (08:22→21:20)
--- NOTE | 2019-09-25 09:15 | NUR ---
SW following. Discussed with RN, pt is from home. RN advised no SW needs at this time, pt wanting to discharge. SW will continue to follow should any discharge needs arise.
--- NOTE | 2019-09-25 10:55 | PDOC ---
PROGRESS NOTES Chief Complaint Chief Complaint acute rectal pain, rectal abcess with severe pain sepsis, on admit, tobacco use disorder BMI 36, obese anxiety and agitation - improved, History of Present Illness History of Present Illness still having rectal pain, no stool Vitals Vitals Vital Signs Date Time Temp Pulse Resp B/P (MAP) Pulse Ox O2 Delivery O2 Flow Rate FiO2 09/25/19 07:00 97.7 56 18 115/59 (77) 96 Nasal Cannula 4.0 97.7 Physical Exam Physical Exam pain 8/10 General: Alert, No acute distress, Other (agiated, frustrated that nothing was done for 5 hours this AM) Heart: Regular rate Abdomen: Normal bowel sounds, Soft Extremities: No cyanosis, No edema Skin: No significant lesion Review of Systems Review of Systems rectal pain, did not sleep, no stool Assessment and Plan Assessmemt and Plan Problems Medical Problems: (1) Leukocytosis Status: Acute (2) Perianal abscess Status: Acute Comment Review of Relevant I have reviewed the following items migue (where applicable) has been applied. Labs Laboratory Tests Test 09/24/19 04:07 09/24/19 06:50 White Blood Count 20.2 x10^3/uL (4.0-11.0) Red Blood Count 5.55 x10^6/uL (4.30-5.70) Hemoglobin 17.0 g/dL (13.0-17.5) Hematocrit 48.7 % (39.0-53.0) Mean Corpuscular Volume 88 fL (79-100) Mean Corpuscular Hemoglobin 31 pg (25-35) Mean Corpuscular Hemoglobin Concent 35 g/dL (31-37) Red Cell Distribution Width 14.6 % (11.5-14.5) Platelet Count 301 x10^3/uL (140-400) Neutrophils (%) (Auto) 75 % (31-73) Lymphocytes (%) (Auto) 14 % (24-48) Monocytes (%) (Auto) 10 % (0-9) Eosinophils (%) (Auto) 0 % (0-3) Basophils (%) (Auto) 1 % (0-3) Neutrophils # (Auto) 15.3 x10^3/uL (1.8-7.7) Lymphocytes # (Auto) 2.9 x10^3/uL (1.0-4.8) Monocytes # (Auto) 2.0 x10^3/uL (0.0-1.1) Eosinophils # (Auto) 0.0 x10^3/uL (0.0-0.7) Basophils # (Auto) 0.1 x10^3/uL (0.0-0.2) Segmented Neutrophils % 74 % (35-66) Band Neutrophils % 2 % (0-9) Lymphocytes % 22 % (24-48) Monocytes % 2 % (0-10) Platelet Estimate Adequate (ADEQUATE) Prothrombin Time 12.2 SEC (11.7-14.0) Prothromb Time International Ratio 0.9 (0.8-1.1) Urine Collection Type Unknown Urine Color Yellow Urine Clarity Clear Urine pH 5.0 Urine Specific [place] 1.020 Urine Protein Negative mg/dL (NEG-TRACE) Urine Glucose (UA) Negative mg/dL (NEG) Urine Ketones (Stick) 15 mg/dL (NEG) Urine Blood Negative (NEG) Urine Nitrite Negative (NEG) Urine Bilirubin Negative (NEG) Urine Urobilinogen Dipstick 0.2 mg/dL (0.2 mg/dL) Urine Leukocyte Esterase Negative (NEG) Urine RBC 0 /HPF (0-2) Urine WBC Rare /HPF (0-4) Urine Squamous Epithelial Cells Occ /LPF Urine Bacteria 0 /HPF (0-FEW) Urine Mucus Slight /LPF Sodium Level 132 mmol/L (136-145) Potassium Level 4.2 mmol/L (3.5-5.1) Chloride Level 97 mmol/L (98-107) Carbon Dioxide Level 22 mmol/L (21-32) Anion Gap 13 (6-14) Blood Urea Nitrogen 14 mg/dL (8-26) Creatinine 1.2 mg/dL (0.7-1.3) Estimated GFR (Cockcroft-Gault) 76.9 BUN/Creatinine Ratio 12 (6-20) Glucose Level 106 mg/dL (70-99) Calcium Level 9.4 mg/dL (8.5-10.1) Total Bilirubin 0.8 mg/dL (0.2-1.0) Aspartate Amino Transf (AST/SGOT) 19 U/L (15-37) Alanine Aminotransferase (ALT/SGPT) 21 U/L (16-63) Alkaline Phosphatase 107 U/L (46-116) Total Protein 8.9 g/dL (6.4-8.2) Albumin 3.5 g/dL (3.4-5.0) Albumin/Globulin Ratio 0.6 (1.0-1.7) Urine Opiates Screen Pos (NEG) Urine Methadone Screen Neg (NEG) Urine Barbiturates Neg (NEG) Urine Phencyclidine Screen Neg (NEG) Urine Amphetamine/Methamphetamine Neg (NEG) Urine Benzodiazepines Screen Neg (NEG) Urine Cocaine Screen Neg (NEG) Urine Cannabinoids Screen Neg (NEG) Urine Ethyl Alcohol Neg (NEG) Lactic Acid Level 1.0 mmol/L (0.4-2.0) Microbiology 09/24/19 Blood Culture - Preliminary, Resulted NO GROWTH AFTER 1 DAY Medications Current Medications Ondansetron HCl (Zofran) 4 mg 1X ONCE IVP Last administered on 09/24/19at 04:21; Start 09/24/19 at 03:30; Stop 09/24/19 at 03:35; Status DC Morphine Sulfate (Morphine Sulfate) 4 mg 1X ONCE IV Last administered on 09/24/19at 04:18; Start 09/24/19 at 03:30; Stop 09/24/19 at 03:35; Status DC Morphine Sulfate (Morphine Sulfate) 2 mg PRN Q2HR PRN IV PAIN; Start 09/24/19 at 03:30; Stop 09/24/19 at 06:00; Status DC Sodium Chloride 1,000 ml @ 125 mls/hr Q8H IV Last administered on 09/24/19at 22:03; Start 09/24/19 at 03:30; Stop 09/25/19 at 03:29; Status DC Piperacillin Sod/ Tazobactam Sod 3.375 gm/Sodium Chloride 50 ml @ 100 mls/hr 1X ONCE IV Last administered on 09/24/19at 05:45; Start 09/24/19 at 05:45; Stop 09/24/19 at 06:14; Status DC Morphine Sulfate (Morphine Sulfate) 4 mg PRN Q2HR PRN IV PAIN Last administered on 09/24/19at 08:53; Start 09/24/19 at 08:45 Lidocaine HCl (Xylocaine 2% Topical 5gm Tube) 1 ty 1X ONCE TP ; Start 09/24/19 at 08:45; Stop 09/24/19 at 08:46; Status DC Ondansetron HCl (Zofran) 4 mg PRN Q6HRS PRN IV NAUSEA/VOMITING; Start 09/24/19 at 09:15; Stop 09/25/19 at 09:14; Status DC Fentanyl Citrate (Fentanyl 2ml Vial) 25 mcg PRN Q5MIN PRN IV MILD PAIN 1-3; Start 09/24/19 at 09:15; Stop 09/25/19 at 09:14; Status DC Fentanyl Citrate (Fentanyl 2ml Vial) 50 mcg PRN Q5MIN PRN IV MODERATE TO SEVERE PAIN; Start 09/24/19 at 09:15; Stop 09/25/19 at 09:14; Status DC Morphine Sulfate (Morphine Sulfate) 1 mg PRN Q10MIN PRN IV SEVERE PAIN 7-10; Start 09/24/19 at 09:15; Stop 09/25/19 at 09:14; Status DC Ringer's Solution 1,000 ml @ 30 mls/hr Q24H IV ; Start 09/24/19 at 09:11; Stop 09/24/19 at 21:10; Status DC Lidocaine HCl (Xylocaine-Mpf 1% 2ml Vial) 2 ml 1X PRN PRN ID IV START; Start 09/24/19 at 09:15; Stop 09/25/19 at 09:14; Status DC Hydromorphone HCl (Dilaudid) 0.5 mg PRN Q10MIN PRN IV SEV PAIN, Second choice; Start 09/24/19 at 09:15; Stop 09/25/19 at 09:14; Status DC Prochlorperazine Edisylate (Compazine) 5 mg PACU PRN PRN IV NAUSEA, MRX1; Start 09/24/19 at 09:15; Stop 09/25/19 at 09:14; Status DC Sevoflurane (Ultane) 30 ml STK-MED ONCE IH ; Start 09/24/19 at 09:38; Stop 09/24/19 at 09:39; Status DC Propofol 20 ml @ As Directed STK-MED ONCE IV ; Start 09/24/19 at 09:38; Stop 09/24/19 at 09:39; Status DC Lidocaine HCl (Lidocaine Pf 2% Vial) 5 ml STK-MED ONCE .ROUTE ; Start 09/24/19 at 09:38; Stop 09/24/19 at 09:39; Status DC Fentanyl Citrate (Fentanyl 2ml Vial) 100 mcg STK-MED ONCE .ROUTE ; Start 09/24/19 at 09:49; Stop 09/24/19 at 09:50; Status DC Succinylcholine Chloride (Anectine) 200 mg STK-MED ONCE .ROUTE ; Start 09/24/19 at 09:59; Stop 09/24/19 at 09:59; Status DC Rocuronium [place] (Zemuron) 50 mg STK-MED ONCE .ROUTE ; Start 09/24/19 at 09:59; Stop 09/24/19 at 09:59; Status DC Bupivacaine HCl/ Epinephrine Bitart (Sensorcain-Epi 0.5%-1:904699 Mpf) 30 ml STK-MED ONCE .ROUTE ; Start 09/24/19 at 10:04; Stop 09/24/19 at 10:04; Status DC Dexamethasone Sodium Phosphate (Decadron) 4 mg STK-MED ONCE .ROUTE ; Start 09/24/19 at 10:33; Stop 09/24/19 at 10:33; Status DC Desflurane (Suprane) 30 ml STK-MED ONCE IH ; Start 09/24/19 at 10:33; Stop 09/24/19 at 10:33; Status DC Phenylephrine HCl (PHENYLEPHRINE in 0.9% NACL PF) 1 mg STK-MED ONCE IV ; Start 09/24/19 at 10:34; Stop 09/24/19 at 10:34; Status DC Ondansetron HCl (Zofran) 4 mg STK-MED ONCE .ROUTE ; Start 09/24/19 at 10:44; Stop 09/24/19 at 10:44; Status DC Glycopyrrolate (Robinul) 1 mg STK-MED ONCE .ROUTE ; Start 09/24/19 at 10:44; St op 09/24/19 at 10:44; Status DC Neostigmine [place] (Neostigmine Methylsulfate) 5 mg STK-MED ONCE .ROUTE ; Start 09/24/19 at 10:44; Stop 09/24/19 at 10:45; Status DC Oxycodone/ Acetaminophen (Percocet 5/325) 1 tab PRN Q4HRS PRN PO MODERATE PAIN Last administered on 09/25/19at 01:56; Start 09/24/19 at 11:15 Oxycodone/ Acetaminophen (Percocet 5/325) 2 tab PRN Q4HRS PRN PO SEVERE PAIN L ast administered on 09/25/19at 06:00; Start 09/24/19 at 11:15 Polyethylene Glycol (miraLAX PACKET) 17 gm DAILY PO Last administered on 09/25/19at 08:22; Start 09/24/19 at 12:30 Polyethylene Glycol (miraLAX PACKET) 17 gm PRN DAILY PRN PO CONSTIPATION; Start 09/24/19 at 12:00 Docusate Sodium (Colace) 100 mg DAILY PO Last administered on 09/25/19at 08:22; Start 09/24/19 at 12:30 Piperacillin Sod/ Tazobactam Sod (Zosyn Per Pharmacy) 1 each PRN DAILY PRN MC SEE COMMENTS; Start 09/24/19 at 12:15 Piperacillin Sod/ Tazobactam Sod 3.375 gm/Sodium Chloride 50 ml @ 100 mls/hr Q6HRS IV Last administered on 09/25/19at 05:23; Start 09/24/19 at 12:00 Active Scripts Active Miralax (Polyethylene Glycol 3350) 17 Gm Powd.pack 1 Packet PO DAILY PRN Colace (Docusate Sodium) 100 Mg Capsule 100 Mg PO BID Augmentin 875-125 Tablet (Amoxicillin/Potassium Clav) 1 Each Tablet 1 Tab PO BID Oxycodone-Acetaminophen 5-325 (Oxycodone Hcl/Acetaminophen) 1 Each Tablet 1 Tab PO PRN Q4HRS PRN Reported Atorvastatin Calcium 40 Mg Tablet 1 Tab PO QHS Vitals/I & O Vital Sign - Last 24 Hours 09/24/19 09/24/19 09/24/19 09/24/19 11:06 11:06 11:20 11:50 Temp 99.2 98.7 98.7 99.2 98.7 98.7 Pulse 70 70 74 Resp 24 22 22 B/P (MAP) 182/80 169/80 162/89 Pulse Ox 94 97 93 O2 Delivery Simple Mask Mask Simple Mask Nasal Cannula O2 Flow Rate 10 10 10 4 09/24/19 09/24/19 09/24/19 09/24/19 12:30 12:45 12:52 13:00 Pulse 88 84 81 Resp 18 18 18 B/P (MAP) 151/78 (102) 134/80 (98) 144/75 (98) Pulse Ox 95 96 93 94 O2 Delivery Nasal Cannula Nasal Cannula Nasal Cannula Nasal Cannula O2 Flow Rate 4.0 4.0 4.0 4.0 09/24/19 09/24/19 09/24/19 09/24/19 13:15 13:45 13:52 14:15 Pulse 85 74 71 Resp 18 18 18 B/P (MAP) 127/72 (90) 122/62 (82) 118/61 (80) Pulse Ox 96 95 90 O2 Delivery Nasal Cannula Nasal Cannula Nasal Cannula Nasal Cannula O2 Flow Rate 4.0 4.0 4.0 4.0 09/24/19 09/24/19 09/24/19 09/25/19 19:00 20:00 23:00 02:56 Temp 98.5 98.5 Pulse 57 57 Resp 18 18 B/P (MAP) 114/68 (83) 114/54 (74) Pulse Ox 98 92 O2 Delivery Nasal Cannula Nasal Cannula Nasal Cannula Nasal Cannula O2 Flow Rate 4.0 4.0 4.0 4.0 09/25/19 09/25/19 09/25/19 03:00 06:00 07:00 Temp 97.8 97.7 97.8 97.7 Pulse 64 56 Resp 18 18 B/P (MAP) 104/46 (65) 115/59 (77) Pulse Ox 97 96 O2 Delivery Nasal Cannula Nasal Cannula Nasal Cannula O2 Flow Rate 18.0 4.0 4.0 Intake and Output 09/24/19 09/24/19 09/25/19 15:00 23:00 07:00 Intake Total 50 ml Output Total 5 ml 800 ml Balance -5 ml -750 ml SALIMA MACIAS MD Sep 25, 2019 10:55
[2019-09-25 11:00] VITALS: BP 130/67
[2019-09-25] MEDS ORDERED: KETOROLAC 30 MG/ML VIAL. IVP ONE (11:00)
[2019-09-25 15:00] VITALS: BP 135/58
--- NOTE | 2019-09-25 16:17 | NUR ---
Wound Care Wound care consult for post op dressing change. Pt was unable to let WC team unpack wound due to pain, he wanted to remove it himself. Pt wanted to soak dressing to allow it to soften. Pt placed in shower to remove his dressing at his own pace. Pt is to call RN when he is finished so it can be repacked with aquacel ag (if patient will allow it) and cover with ABD pad. Recommend to change packing every 3 days and ABD pad daily and as needed for drainage. Pt educated wound will need to be repacked and educated on PU prevention, pt v/u. WC will continue to follow for possible changes.
[2019-09-25 19:00] VITALS: BP 128/63
[2019-09-25] MEDS: MULTIVITAMIN with MINERAL TABLET. PO SCH (21:20)
[2019-09-25] MEDS: LACTOBACILLUS RHAMNOSUS GG 1 CAPSULE. PO SCH (21:20)
[2019-09-25 23:00] VITALS: BP 143/76
[2019-09-26] MEDS: oxyCODONE/APAP 5/325 1 TAB TABLET PO PRN ×2 (00:16→11:04)
[2019-09-26 03:00] VITALS: BP 133/73
[2019-09-26 04:19] LABS: BASO # 0.1 x10^3/uL (0.0-0.2); BASO % 1 % (0-3); EOS # 0.1 x10^3/uL (0.0-0.7); EOS % 1 % (0-3); HEMATOCRIT 42.3 % (39.0-53.0); HEMOGLOBIN 14.1 g/dL (13.0-17.5); LYMPH # 4.6 x10^3/uL (1.0-4.8); LYMPH % 41 % (24-48); MEAN CORPUSCULAR HEMOGLOBIN 30 pg (25-35); MEAN CORPUSCULAR HGB CONC 34 g/dL (31-37); MEAN CORPUSCULAR VOLUME 90 fL (79-100); MONO # 1.3 x10^3/uL (0.0-1.1); MONO % 12 % (0-9); NEUT # 5.1 x10^3/uL (1.8-7.7); NEUT % 46 % (31-73); PLATELET COUNT 284 x10^3/uL (140-400); RED BLOOD COUNT 4.69 x10^6/uL (4.30-5.70); RED CELL DISTRIBUTION WIDTH 14.5 % (11.5-14.5); WHITE BLOOD COUNT 11.2 x10^3/uL (4.0-11.0)
[2019-09-26 04:33] LABS: ALBUMIN 2.6 g/dL (3.4-5.0); ALBUMIN/GLOBULIN RATIO 0.6 (1.0-1.7); CALCIUM 8.6 mg/dL (8.5-10.1); CREATININE 1.2 mg/dL (0.7-1.3); GFR 76.9; POTASSIUM 4.3 mmol/L (3.5-5.1); TOTAL BILIRUBIN 0.3 mg/dL (0.2-1.0); TOTAL PROTEIN 6.7 g/dL (6.4-8.2)
[2019-09-26] MEDS: PIPERACILLIN/TAZOBACTAM 3.375 GM in IV NORMAL SALINE 50ML 50 ML IV SCH (05:26)
[2019-09-26 07:00] VITALS: BP 140/74
--- NOTE | 2019-09-26 08:56 | NUR ---
SW following. Discussed with RN, pt from home. Pt has been doing own wound care here. RN anticipates possible discharge today, with no SW needs.
[2019-09-26] MEDS: DOCUSATE SODIUM 100 MG CAPSULE. PO SCH (09:31)
[2019-09-26] MEDS: LACTOBACILLUS RHAMNOSUS GG 1 CAPSULE. PO SCH (09:31)
[2019-09-26] MEDS: POLYETHYLENE GLYCOL 3350 17 GM PACKET. PO SCH (09:32)
[2019-09-26] MEDS: MULTIVITAMIN with MINERAL TABLET. PO SCH (09:32)
[2019-09-26] MEDS ORDERED: AMOX1TAB61 PO (10:59)
[2019-09-26] MEDS ORDERED: POLY17PO29 PO (10:59)
[2019-09-26] MEDS ORDERED: DOCU-109 PO (10:59)
[2019-09-26 11:00] VITALS: BP 128/53
--- NOTE | 2019-09-26 11:03 | PDOC3 ---
Discharge Summary Visit Information Date of Admission: Sep 24, 2019 Date of Discharge: Sep 26, 2019 Final Diagnosis acute rectal pain, rectal abcess with severe pain sepsis, on admit, tobacco use disorder BMI 36, obese anxiety and agitation - improved, Problems Medical Problems: (1) Leukocytosis Status: Acute (2) Perianal abscess Status: Acute Brief Hospital Course Allergies Allergies Coded Allergies Type Severity Reaction Last Updated Verified No Known Drug Allergies 05/17/17 No Vital Signs Vital Signs Date Time Temp Pulse Resp B/P (MAP) Pulse Ox O2 Delivery O2 Flow Rate FiO2 09/26/19 08:00 Room Air 09/26/19 07:00 98.2 56 18 140/74 (96) 98 98.2 09/25/19 12:03 4.0 Lab Results Laboratory Tests Test 09/26/19 03:55 White Blood Count 11.2 x10^3/uL (4.0-11.0) Red Blood Count 4.69 x10^6/uL (4.30-5.70) Hemoglobin 14.1 g/dL (13.0-17.5) Hematocrit 42.3 % (39.0-53.0) Mean Corpuscular Volume 90 fL (79-100) Mean Corpuscular Hemoglobin 30 pg (25-35) Mean Corpuscular Hemoglobin Concent 34 g/dL (31-37) Red Cell Distribution Width 14.5 % (11.5-14.5) Platelet Count 284 x10^3/uL (140-400) Neutrophils (%) (Auto) 46 % (31-73) Lymphocytes (%) (Auto) 41 % (24-48) Monocytes (%) (Auto) 12 % (0-9) Eosinophils (%) (Auto) 1 % (0-3) Basophils (%) (Auto) 1 % (0-3) Neutrophils # (Auto) 5.1 x10^3/uL (1.8-7.7) Lymphocytes # (Auto) 4.6 x10^3/uL (1.0-4.8) Monocytes # (Auto) 1.3 x10^3/uL (0.0-1.1) Eosinophils # (Auto) 0.1 x10^3/uL (0.0-0.7) Basophils # (Auto) 0.1 x10^3/uL (0.0-0.2) Sodium Level 141 mmol/L (136-145) Potassium Level 4.3 mmol/L (3.5-5.1) Chloride Level 108 mmol/L (98-107) Carbon Dioxide Level 25 mmol/L (21-32) Anion Gap 8 (6-14) Blood Urea Nitrogen 17 mg/dL (8-26) Creatinine 1.2 mg/dL (0.7-1.3) Estimated GFR (Cockcroft-Gault) 76.9 BUN/Creatinine Ratio 14 (6-20) Glucose Level 92 mg/dL (70-99) Calcium Level 8.6 mg/dL (8.5-10.1) Total Bilirubin 0.3 mg/dL (0.2-1.0) Aspartate Amino Transf (AST/SGOT) 16 U/L (15-37) Alanine Aminotransferase (ALT/SGPT) 16 U/L (16-63) Alkaline Phosphatase 69 U/L (46-116) Total Protein 6.7 g/dL (6.4-8.2) Albumin 2.6 g/dL (3.4-5.0) Albumin/Globulin Ratio 0.6 (1.0-1.7) Laboratory Tests Test 09/26/19 03:55 White Blood Count 11.2 x10^3/uL (4.0-11.0) Red Blood Count 4.69 x10^6/uL (4.30-5.70) Hemoglobin 14.1 g/dL (13.0-17.5) Hematocrit 42.3 % (39.0-53.0) Mean Corpuscular Volume 90 fL (79-100) Mean Corpuscular Hemoglobin 30 pg (25-35) Mean Corpuscular Hemoglobin Concent 34 g/dL (31-37) Red Cell Distribution Width 14.5 % (11.5-14.5) Platelet Count 284 x10^3/uL (140-400) Neutrophils (%) (Auto) 46 % (31-73) Lymphocytes (%) (Auto) 41 % (24-48) Monocytes (%) (Auto) 12 % (0-9) Eosinophils (%) (Auto) 1 % (0-3) Basophils (%) (Auto) 1 % (0-3) Neutrophils # (Auto) 5.1 x10^3/uL (1.8-7.7) Lymphocytes # (Auto) 4.6 x10^3/uL (1.0-4.8) Monocytes # (Auto) 1.3 x10^3/uL (0.0-1.1) Eosinophils # (Auto) 0.1 x10^3/uL (0.0-0.7) Basophils # (Auto) 0.1 x10^3/uL (0.0-0.2) Sodium Level 141 mmol/L (136-145) Potassium Level 4.3 mmol/L (3.5-5.1) Chloride Level 108 mmol/L (98-107) Carbon Dioxide Level 25 mmol/L (21-32) Anion Gap 8 (6-14) Blood Urea Nitrogen 17 mg/dL (8-26) Creatinine 1.2 mg/dL (0.7-1.3) Estimated GFR (Cockcroft-Gault) 76.9 BUN/Creatinine Ratio 14 (6-20) Glucose Level 92 mg/dL (70-99) Calcium Level 8.6 mg/dL (8.5-10.1) Total Bilirubin 0.3 mg/dL (0.2-1.0) Aspartate Amino Transf (AST/SGOT) 16 U/L (15-37) Alanine Aminotransferase (ALT/SGPT) 16 U/L (16-63) Alkaline Phosphatase 69 U/L (46-116) Total Protein 6.7 g/dL (6.4-8.2) Albumin 2.6 g/dL (3.4-5.0) Albumin/Globulin Ratio 0.6 (1.0-1.7) Brief Hospital Course Mr. Valdez is a 54 old male with rectal pain and abcess, req. surgery, surg went well on 09/23, still had severe pain, wound care for a day, then able to get up, adn DC home Discharge Information Condition at Discharge: Improved Follow Up: Weeks Disposition/Orders: D/C to Home Scheduled Amoxicillin/Potassium Clav (Augmentin 875-125 Tablet) 1 Each Tablet, 1 TAB PO BID for rectal abcess, #10 Prescribed by: SALIMA MACIAS on 09/26/19 1059 Atorvastatin Calcium (Atorvastatin Calcium) 40 Mg Tablet, 1 TAB PO QHS for high cholesterol, #90 Ref 3 (Reported) Entered as Reported by: GREGORIA KNIGHT RN on 09/24/19640 Last Taken: UNKNOWN on Unknown Date & Time Last Action: Reviewed on 09/24/19641 by GREGORIA KNIGHT RN Docusate Sodium (Colace) 100 Mg Capsule, 100 MG PO BID for stool softener, #60 Prescribed by: SALIMA MACIAS on 09/26/19 1059 Scheduled PRN Oxycodone Hcl/Acetaminophen (Oxycodone-Acetaminophen 5-325) 1 Each Tablet, 1 TAB PO PRN Q4HRS PRN for PAIN, #30 Prescribed by: SALIMA MACIAS on 05/19/17 1255 Polyethylene Glycol 3350 (Miralax) 17 Gm Powd.pack, 1 PACKET PO DAILY PRN for hard stool, #30 Prescribed by: SALIMA MACIAS on 09/26/19 1059 Patient Instructions Patient Instructions face to face discussion, meds and plan reviewed > 30 min total coordination SALIMA MACIAS MD Sep 26, 2019 11:03
--- NOTE | 2019-09-26 12:34 | NUR ---
Discharge instructions and belongings reviewed with patient, verbalized understanding. Patient was escorted out via ambulation by Arcelia PEREYRA accompanied by his family.
== END 2019-09-26 13:17 | disposition home or self-care (01) | DRG 854 ==
LOC: ER 02:31 → 4 NORTH 03:47
PROVIDERS: ADMIT Family Medicine; ATTEND Family Medicine
PROC: 0J9B0ZZ Drainage of Perineum Subcutaneous Tissue and Fascia, Open Approach (ICD-10-PCS; principal; 2019-09-24 10:00)
DX: A41.9 Sepsis, unspecified organism (principal); K61.2 Anorectal abscess; L02.215 Cutaneous abscess of perineum; E66.9 Obesity, unspecified; E78.00 Pure hypercholesterolemia, unspecified; E78.5 Hyperlipidemia, unspecified; F17.210 Nicotine dependence, cigarettes, uncomplicated; F41.9 Anxiety disorder, unspecified; I10 Essential (primary) hypertension; K62.89 Other specified diseases of anus and rectum; Z68.36 Body mass index [BMI] 36.0-36.9, adult
CPT/HCPCS: 36415; 80053; 80307; 81001; 83605; 85007; 85025; 85610; 87040; 87071; 87075; 96361; 96374; 96375; 99285; A7015; J0330; J1100; J1885; J2001; J2270; J2370; J2405; J2543; J2704; J2710; J3010; J3490; J7030; J7120; A4461; G0378

== ENCOUNTER 2021-02-04 08:29 | Inpatient (IN) | payer MEDICARE, OTHER ==
[~2021-02-04] VITALS: Ht 167.6 cm; Wt 90.0 kg
[2021-02-04] VITALS (11 sets, daily range): BP systolic 104–140; BP diastolic 53–77
[~2021-02-04 08:29] MED LIST changes: +ATOR40TA59 PO
[2021-02-04] MEDS ORDERED: MORPHINE SULFATE 4 MG/ML INJ. IM ONE (09:00)
[2021-02-04] MEDS ORDERED: MORPHINE SULFATE 4 MG/ML INJ. IVP ONE (09:30)
[2021-02-04 09:44] LABS: BASO # 0.1 x10^3/uL (0.0-0.2); BASO % 1 % (0-3); EOS % 0 % (0-3); HEMATOCRIT 49.7 % (39.0-53.0); HEMOGLOBIN 16.9 g/dL (13.0-17.5); LYMPH # 3.3 x10^3/uL (1.0-4.8); LYMPH % 19 % (24-48); MEAN CORPUSCULAR HEMOGLOBIN 30 pg (25-35); MEAN CORPUSCULAR HGB CONC 34 g/dL (31-37); MEAN CORPUSCULAR VOLUME 90 fL (79-100); MONO # 2.3 x10^3/uL (0.0-1.1); MONO % 13 % (0-9); NEUT # 12.1 x10^3/uL (1.8-7.7); NEUT % 68 % (31-73); PLATELET COUNT 303 x10^3/uL (140-400); RED BLOOD COUNT 5.56 x10^6/uL (4.30-5.70); RED CELL DISTRIBUTION WIDTH 14.8 % (11.5-14.5); WHITE BLOOD COUNT 17.8 x10^3/uL (4.0-11.0)
[2021-02-04 09:54] LABS: CALCIUM 9.3 mg/dL (8.5-10.1); CREATININE 1.2 mg/dL (0.7-1.3); GFR 76.6; POTASSIUM 4.4 mmol/L (3.5-5.1)
[2021-02-04 09:58] LABS: ALBUMIN 3.7 g/dL (3.4-5.0); ALBUMIN/GLOBULIN RATIO 0.9 (1.0-1.7); TOTAL BILIRUBIN 0.5 mg/dL (0.2-1.0)
[2021-02-04] MEDS ORDERED: IOHEXOL 300 MG/ML 100ML VIAL. IV ONE (10:15)
[2021-02-04] MEDS ORDERED: CONTRAST GIVEN. MC PRN (10:15)
--- NOTE | 2021-02-04 10:23 | PHYS DOC ---
Past Medical History Past Medical History: Diabetes-Type II, High Cholesterol Additional Past Medical Histor: RECTAL ABSCESS Past Surgical History: Other Additional Past Surgical Histo: L HIP SURGERY, RECTAL ABSCESS REMOVAL Smoking Status: Current Every Day Smoker Alcohol Use: None Drug Use: None General Adult EDM: Chief Complaint: ABSCESS HPI: HPI: Patient is a 55 year old male with history of perirectal abscess requiring surgical drainage on 2 separate occasions who presents with recurrent swelling near his rectum on the left side. Has noticed this increase over the past week. He was hopeful that it would start to drain, but it never did. Has not come to ahead. Has had increasing discomfort in this area. Denies any fever/chills. No abdominal pain. No blood in his stools or with wiping. No dysuria, urgency, or frequency. Review of Systems: Review of Systems: Constitutional: Denies fever or chills. [] Eyes: Denies change in visual acuity. [] HENT: Denies nasal congestion or sore throat. [] Respiratory: Denies cough or shortness of breath. [] Cardiovascular: Denies chest pain or edema. [] GI: + Perirectal abscess. Denies abdominal pain, nausea, vomiting, bloody s tools or diarrhea. [] : Denies dysuria. [] Musculoskeletal: Denies back pain or joint pain. [] Integument: Denies rash. [] Neurologic: Denies headache, focal weakness or sensory changes. [] Endocrine: Denies polyuria or polydipsia. [] Lymphatic: Denies swollen glands. [] Psychiatric: Denies depression or anxiety. [] Heart Score: C/O Chest Pain: N/A Risk Factors: Risk Factors: DM, Current or recent (<one month) smoker, HTN, HLP, family history of CAD, obesity. Risk Scores: Score 0 - 3: 2.5% MACE over next 6 weeks - Discharge Home Score 4 - 6: 20.3% MACE over next 6 weeks - Admit for Clinical Observation Score 7 - 10: 72.7% MACE over next 6 weeks - Early Invasive Strategies Family History: Family History: No pertinent past medical history for family. Current Medications: Current Medications Medications (Trade) Dose Ordered Sig/Cristina Start Time Stop Time Status Last Admin Dose Admin Info (CONTRAST GIVEN -- Rx MONITORING) 1 each PRN DAILY PRN 02/04/21 10:15 02/06/21 10:14 Iohexol (Omnipaque 300 Mg/ml) 75 ml 1X ONCE 02/04/21 10:15 02/04/21 10:16 DC Morphine Sulfate (Morphine Sulfate) 4 mg 1X ONCE 02/04/21 09:30 02/04/21 09:31 DC 02/04/21 09:29 4 MG Allergies: Allergies: Allergies Coded Allergies Type Severity Reaction Last Updated Verified No Known Drug Allergies 05/17/17 No Physical Exam: PE: Constitutional: Well developed, well nourished, no acute distress, non-toxic appearance. [] HENT: Normocephalic, atraumatic, bilateral external ears normal, oropharynx moist, no oral exudates, nose normal. [] Eyes: PERRLA, EOMI, conjunctiva normal, no discharge. [] Neck: Normal range of motion, no tenderness, supple, no stridor. [] Cardiovascular:Heart rate regular rhythm, no murmur [] Lungs & Thorax: Bilateral breath sounds clear to auscultation [] Abdomen: Soft, nondistended, nontender abdomen.. [] : Left-sided perirectal abscess, approximately 3 cm wide. Tender to the touch. No drainage noted with pressure. Skin: Warm, dry, no erythema, no rash. [] Back: No tenderness, no CVA tenderness. [] Extremities: No tenderness, no cyanosis, no clubbing, ROM intact, no edema. [] Neurologic: Alert and oriented X 3, normal motor function, normal sensory function, no focal deficits noted. [] Psychologic: Affect normal, judgement normal, mood normal. [] Current Patient Data: Labs: Laboratory Tests Test 02/04/21 09:25 White Blood Count 17.8 x10^3/uL (4.0-11.0) H Red Blood Count 5.56 x10^6/uL (4.30-5.70) Hemoglobin 16.9 g/dL (13.0-17.5) Hematocrit 49.7 % (39.0-53.0) Mean Corpuscular Volume 90 fL (79-100) Mean Corpuscular Hemoglobin 30 pg (25-35) Mean Corpuscular Hemoglobin Concent 34 g/dL (31-37) Red Cell Distribution Width 14.8 % (11.5-14.5) H Platelet Count 303 x10^3/uL (140-400) Neutrophils (%) (Auto) 68 % (31-73) Lymphocytes (%) (Auto) 19 % (24-48) L Monocytes (%) (Auto) 13 % (0-9) H Eosinophils (%) (Auto) 0 % (0-3) Basophils (%) (Auto) 1 % (0-3) Neutrophils # (Auto) 12.1 x10^3/uL (1.8-7.7) H Lymphocytes # (Auto) 3.3 x10^3/uL (1.0-4.8) Monocytes # (Auto) 2.3 x10^3/uL (0.0-1.1) H Eosinophils # (Auto) 0.0 x10^3/uL (0.0-0.7) Basophils # (Auto) 0.1 x10^3/uL (0.0-0.2) Platelet Estimate Pending Sodium Level 138 mmol/L (136-145) Potassium Level 4.4 mmol/L (3.5-5.1) Chloride Level 103 mmol/L (98-107) Carbon Dioxide Level 23 mmol/L (21-32) Anion Gap 12 (6-14) Blood Urea Nitrogen 17 mg/dL (8-26) Creatinine 1.2 mg/dL (0.7-1.3) Estimated GFR (Cockcroft-Gault) 76.6 BUN/Creatinine Ratio 14 (6-20) Glucose Level 104 mg/dL (70-99) H Calcium Level 9.3 mg/dL (8.5-10.1) Total Bilirubin 0.5 mg/dL (0.2-1.0) Aspartate Amino Transferase (AST) 19 U/L (15-37) Alanine Aminotransferase (ALT) 22 U/L (16-63) Alkaline Phosphatase 94 U/L (46-116) Total Protein 8.0 g/dL (6.4-8.2) Albumin 3.7 g/dL (3.4-5.0) Albumin/Globulin Ratio 0.9 (1.0-1.7) L Laboratory Tests 02/04/21 09:25 Laboratory Tests 02/04/21 09:25 Vital Signs: Vital Signs Date Time Temp Pulse Resp B/P (MAP) Pulse Ox O2 Delivery O2 Flow Rate FiO2 02/04/21 08:38 97.7 76 20 150/67 (94) 96 Room Air 97.7 EKG: EKG: na[] Radiology/Procedures: Radiology/Procedures: CT abd/pelvis[] Course & Med Decision Making: Course & Med Decision Making Pertinent Labs and Imaging studies reviewed. (See chart for details) Patient is a 55-year-old gentleman with a history of previous perirectal abscesses requiring surgical drainage who presents with recurrent perirectal abscess. Left-sided approximately 3 cm abscess externally evident. Vital signs are stable and abdominal examination is reassuring. Will obtain CT abdomen/pelvis to determine the extent of the abscess. Given his need for surgery in the past following imaging will plan to consult with on-call surgery. 1023AM CT reveals a 5 x 4 x 2 cm abscess. White count~18 K. Awaiting discussion with on-call surgeon. IV Zosyn given for antibiotics. 11:32AM Discussed with Dr. Martin of general surgery. Patient will remain n.p.o. and will be evaluated for surgical drainage. Will be admitted to medicine in the meantime. 1156am Jaxon Disclaimer: Jaxon Disclaimer: This electronic medical record was generated, in whole or in part, using a voice recognition dictation system. Departure Departure Disposition: ADMITTED INPATIENT Admitting Physician: EDUARDO (Dr. Brunson) Condition: STABLE Referrals: UNKNOWN PCP NAME (PCP) ELEUTERIO MCCARTY MD Feb 04, 2021 10:23
[2021-02-04 10:58] LABS: % LYMPHS 20 % (24-48); % MONOS 7 % (0-10); % SEGS 73 % (35-66)
[2021-02-04 10:59] LABS: PLT ESTIMATE ADEQUATE (ADEQUATE)
--- NOTE | 2021-02-04 11:02 | RAD ---
INDICATION: Reason: perirectal abscess, hx of same with need for surgery / Spl. Instructions: / Hist ory: . COMPARISON: April 2017 TECHNIQUE: Axial CT images obtained through the abdomen and pelvis with contrast. One or more of the following individualized dose reduction techniques were utilized for this examinat ion: 1. Automated exposure control; 2. Adjustment of the mA and/or kV according to patient size; 3 . Use of iterative reconstruction technique. FINDINGS: Mild dependent airspace opacities commonly from atelectasis. Enlarged lymph nodes in the bilateral groin. For example on the left measuring up to 15 mm short axis . No intrahepatic bile duct dilation. No peripancreatic fluid collection. No hydronephrosis. Urinary bladder is partially distended. There is a rim-enhancing fluid and air collection identified in the left perianal region measuring 50 x 44 x 27 mm. The proximal aspect of this fluid collection abuts the levator insertion. No periappendiceal inflammatory changes. Ossific densities adjacent to the left proximal femur with postoperative changes to the left proximal femur. IMPRESSION: * Fluid and air collection is seen at the left perianal region. Could be from abscess formation. * Enlarged lymph nodes in the groin which could be reactive in nature Electronically signed by: Arnav Callaway MD (02/04/2021 11:00 AM) [id number]
[2021-02-04] MEDS ORDERED: PIPERACILLIN/TAZOBACTAM 4.5 GM in IV NORMAL SALINE 100ML 100 ML IV ONE (11:30)
--- NOTE | 2021-02-04 12:50 | NUR ---
Report received from Senia RN in ER. Care of patient resumed by this nurse. Patient did bring his home medications, they were secured in security bag and sent down to pharmacy to be locked away.
[2021-02-04 12:56] LABS: BILIRUBIN,URINE NEGATIVE (NEG); CLARITY,URINE CLEAR; COLOR,URINE YELLOW; NITRITE,URINE NEGATIVE (NEG); PROTEIN,URINE NEGATIVE (NEG-TRACE); UROBILINOGEN,URINE 0.2 mg/dL (0.2 mg/dL)
[2021-02-04 13:05] LABS: BACTERIA,URINE 0 /HPF (0-FEW); RBC,URINE 0 /HPF (0-2); WBC,URINE 0 /HPF (0-4)
[2021-02-04] MEDS ORDERED: IV RINGERS,LACTATED 1000ML 1,000 ML IV SCH (13:15)
[2021-02-04] MEDS ORDERED: HYDROmorphone 2 MG/ML VIAL IVP PRN (13:15)
[2021-02-04] MEDS ORDERED: PROCHLORPERAZINE 10 MG/2 ML VIAL. IVP PRN (13:15)
[2021-02-04] MEDS ORDERED: MORPHINE SULFATE 2 MG/ML INJ. IVP PRN (13:15)
[2021-02-04] MEDS ORDERED: fentaNYL PF VIAL 100 MCG/2 ML VIAL IVP PRN ×2 (13:15)
[2021-02-04] MEDS ORDERED: ADAL40PE SQ (13:48)
[2021-02-04] MEDS ORDERED: BUPIVACAINE-EPI 0.5%-1:200000 MPF 30 ML VIAL. ONE (13:49)
[2021-02-04] MEDS ORDERED: METF-658 PO (13:50)
[2021-02-04] MEDS ORDERED: PROPOFOL 10 MG/ML (20ML) VIAL. IV ONE (14:52)
[2021-02-04] MEDS ORDERED: LIDOCAINE 2% PF 5 ML VIAL. ONE (14:53)
[2021-02-04] MEDS ORDERED: ONDANSETRON PF 4 MG/2 ML VIAL. ONE (14:53)
[2021-02-04] MEDS ORDERED: DEXAMETHASONE SOD PHOS 4 MG/ML VIAL ONE (14:53)
[2021-02-04] MEDS ORDERED: fentaNYL PF VIAL 100 MCG/2 ML VIAL ONE (14:55)
--- NOTE | 2021-02-04 16:15 | PDOC2 ---
CONSULT Date of Consult Date of Consult DATE: 02/04/21 TIME: 16:12 Reason for Consult Reason for Consult: Perirectal abscess Referring Physician Referring Physician: Shirley Identification/Chief Complaint Chief Complaint Perirectal pain Source Source: Chart review, Patient History of Present Illness Reason for Visit: 55-year-old male with a history of perirectal abscesses came into the emergency department with perirectal pain consistent with previous abscesses CT scan which was formed which showed a 5 cm subcutaneous abscess in the perirectum area. Past Medical History Cardiovascular: HTN Musculoskeletal: low back pain Infectious disease: No pertinent hx Renal/: No pertinent hx Past Surgical History Past Surgical History: Other Family History Family History: No Significant Social History ALCOHOL: none Drugs: None Current Medications Current Medications Current Medications Morphine Sulfate (Morphine Sulfate) 4 mg 1X ONCE IM ; Start 02/04/21 at 09:00; Stop 02/04/21 at 09:16; Status DC Morphine Sulfate (Morphine Sulfate) 4 mg 1X ONCE IVP Last administered on 02/04/21at 09:29; Start 02/04/21 at 09:30; Stop 02/04/21 at 09:31; Status DC Iohexol (Omnipaque 300 Mg/ml) 75 ml 1X ONCE IV Last administered on 02/04/21at 10:29; Start 02/04/21 at 10:15; Stop 02/04/21 at 10:16; Status DC Info (CONTRAST GIVEN -- Rx MONITORING) 1 each PRN DAILY PRN MC SEE COMMENTS; Start 02/04/21 at 10:15; Stop 02/06/21 at 10:14 Piperacillin Sod/ Tazobactam Sod 4.5 gm/Sodium Chloride 100 ml @ 200 mls/hr 1X ONCE IV Last administered on 02/04/21at 11:21; Start 02/04/21 at 11:30; Stop 02/04/21 at 11:59; Status DC Fentanyl Citrate (Fentanyl 2ml Vial) 25 mcg PRN Q5MIN PRN IVP MILD PAIN 1-3; Start 02/04/21 at 13:15; Stop 02/05/21 at 13:14 Fentanyl Citrate (Fentanyl 2ml Vial) 50 mcg PRN Q5MIN PRN IVP MODERATE PAIN 4- 6; Start 02/04/21 at 13:15; Stop 02/05/21 at 13:14 Morphine Sulfate (Morphine Sulfate) 1 mg PRN Q10MIN PRN IVP SEVERE PAIN 7-10; Start 02/04/21 at 13:15; Stop 02/05/21 at 13:14 Ringer's Solution 1,000 ml @ 30 mls/hr Q24H IV ; Start 02/04/21 at 13:15; Stop 02/05/21 at 01:14 Hydromorphone HCl (Dilaudid) 0.5 mg PRN Q10MIN PRN IVP SEVERE PAIN 7-10, 2nd CHOICE; Start 02/04/21 at 13:15; Stop 02/05/21 at 13:14 Prochlorperazine Edisylate (Compazine) 5 mg PACU PRN PRN IVP NAUSEA, MRX1; Start 02/04/21 at 13:15; Stop 02/05/21 at 13:14 Bupivacaine HCl/ Epinephrine Bitart (Sensorcain-Epi 0.5%-1:464653 Mpf) 30 ml STK-MED ONCE .ROUTE ; Start 02/04/21 at 13:49; Stop 02/04/21 at 13:49; Status DC Propofol (Diprivan) 200 mg STK-MED ONCE IV ; Start 02/04/21 at 14:52; Stop 02/04/21 at 14:53; Status DC Lidocaine HCl (Lidocaine Pf 2% Vial) 5 ml STK-MED ONCE .ROUTE ; Start 02/04/21 at 14:53; Stop 02/04/21 at 14:53; Status DC Dexamethasone Sodium Phosphate (Decadron) 4 mg STK-MED ONCE .ROUTE ; Start 02/04/21 at 14:53; Stop 02/04/21 at 14:53; Status DC Ondansetron HCl (Zofran) 4 mg STK-MED ONCE .ROUTE ; Start 02/04/21 at 14:53; Stop 02/04/21 at 14:53; Status DC Fentanyl Citrate (Fentanyl 2ml Vial) 100 mcg STK-MED ONCE .ROUTE ; Start 02/04/21 at 14:55; Stop 02/04/21 at 14:55; Status DC Active Scripts Active Miralax (Polyethylene Glycol 3350) 17 Gm Powd.pack 1 Packet PO DAILY PRN Colace (Docusate Sodium) 100 Mg Capsule 100 Mg PO BID Reported Metformin Hcl Er (Metformin Hcl) 500 Mg Tab.er.24h 500 Mg PO DAILY Humira (Adalimumab) 40 Mg/0.8 Ml Pen.ij.kit 40 Mg SQ WEEKLY Atorvastatin Calcium 40 Mg Tablet 1 Tab PO QHS Allergies Allergies: Coded Allergies: No Known Drug Allergies (Unverified , 05/17/17) ROS Gastrointestinal: Yes Other (Rectal pain) Physical Exam General: Alert, Oriented X3, Cooperative, mild distress HEENT: Atraumatic, EOMI Lungs: Clear to auscultation, Normal air movement Heart: Regular rate, No murmurs Abdomen: Normal bowel sounds, Soft, No tenderness, Other (Rectal exam shows fluctuant area to the right of the rectum consistent with CT findings) Extremities: No edema Skin: No significant lesion Neuro: Normal speech Psych/Mental Status: Mental status NL Vitals VITALS Vital Signs Date Time Temp Pulse Resp B/P (MAP) Pulse Ox O2 Delivery O2 Flow Rate FiO2 02/04/21 15:31 99.1 72 21 142/75 91 Room Air 99.1 Labs Labs Laboratory Tests Test 02/04/21 09:25 02/04/21 12:45 02/04/21 13:34 02/04/21 13:39 White Blood Count 17.8 x10^3/uL (4.0-11.0) Red Blood Count 5.56 x10^6/uL (4.30-5.70) Hemoglobin 16.9 g/dL (13.0-17.5) Hematocrit 49.7 % (39.0-53.0) Mean Corpuscular Volume 90 fL (79-100) Mean Corpuscular Hemoglobin 30 pg (25-35) Mean Corpuscular Hemoglobin Concent 34 g/dL (31-37) Red Cell Distribution Width 14.8 % (11.5-14.5) Platelet Count 303 x10^3/uL (140-400) Neutrophils (%) (Auto) 68 % (31-73) Lymphocytes (%) (Auto) 19 % (24-48) Monocytes (%) (Auto) 13 % (0-9) Eosinophils (%) (Auto) 0 % (0-3) Basophils (%) (Auto) 1 % (0-3) Neutrophils # (Auto) 12.1 x10^3/uL (1.8-7.7) Lymphocytes # (Auto) 3.3 x10^3/uL (1.0-4.8) Monocytes # (Auto) 2.3 x10^3/uL (0.0-1.1) Eosinophils # (Auto) 0.0 x10^3/uL (0.0-0.7) Basophils # (Auto) 0.1 x10^3/uL (0.0-0.2) Segmented Neutrophils % 73 % (35-66) Lymphocytes % 20 % (24-48) Monocytes % 7 % (0-10) Platelet Estimate Adequate (ADEQUATE) Sodium Level 138 mmol/L (136-145) Potassium Level 4.4 mmol/L (3.5-5.1) Chloride Level 103 mmol/L (98-107) Carbon Dioxide Level 23 mmol/L (21-32) Anion Gap 12 (6-14) Blood Urea Nitrogen 17 mg/dL (8-26) Creatinine 1.2 mg/dL (0.7-1.3) Estimated GFR (Cockcroft-Gault) 76.6 BUN/Creatinine Ratio 14 (6-20) Glucose Level 104 mg/dL (70-99) Calcium Level 9.3 mg/dL (8.5-10.1) Total Bilirubin 0.5 mg/dL (0.2-1.0) Aspartate Amino Transf (AST/SGOT) 19 U/L (15-37) Alanine Aminotransferase (ALT/SGPT) 22 U/L (16-63) Alkaline Phosphatase 94 U/L (46-116) Total Protein 8.0 g/dL (6.4-8.2) Albumin 3.7 g/dL (3.4-5.0) Albumin/Globulin Ratio 0.9 (1.0-1.7) Urine Collection Type Unknown Urine Color Yellow Urine Clarity Clear Urine pH 5.0 (<5.0-8.0) Urine Specific [place] >=1.030 (1.000-1.030) Urine Protein Negative mg/dL (NEG-TRACE) Urine Glucose (UA) Negative mg/dL (NEG) Urine Ketones (Stick) Trace mg/dL (NEG) Urine Blood Negative (NEG) Urine Nitrite Negative (NEG) Urine Bilirubin Negative (NEG) Urine Urobilinogen Dipstick 0.2 mg/dL (0.2 mg/dL) Urine Leukocyte Esterase Negative (NEG) Urine RBC 0 /HPF (0-2) Urine WBC 0 /HPF (0-4) Urine Squamous Epithelial Cells Occ /LPF Urine Bacteria 0 /HPF (0-FEW) Urine Mucus Slight /LPF SARS-CoV-2 RNA (MADI) Negative (Negative) SARS-CoV-2 Antigen (Rapid) Negative (NEGATIVE) Test 02/04/21 15:41 Glucose (Fingerstick) 109 mg/dL (70-99) Laboratory Tests Test 02/04/21 09:25 02/04/21 12:45 02/04/21 13:34 02/04/21 13:39 White Blood Count 17.8 x10^3/uL (4.0-11.0) Red Blood Count 5.56 x10^6/uL (4.30-5.70) Hemoglobin 16.9 g/dL (13.0-17.5) Hematocrit 49.7 % (39.0-53.0) Mean Corpuscular Volume 90 fL (79-100) Mean Corpuscular Hemoglobin 30 pg (25-35) Mean Corpuscular Hemoglobin Concent 34 g/dL (31-37) Red Cell Distribution Width 14.8 % (11.5-14.5) Platelet Count 303 x10^3/uL (140-400) Neutrophils (%) (Auto) 68 % (31-73) Lymphocytes (%) (Auto) 19 % (24-48) Monocytes (%) (Auto) 13 % (0-9) Eosinophils (%) (Auto) 0 % (0-3) Basophils (%) (Auto) 1 % (0-3) Neutrophils # (Auto) 12.1 x10^3/uL (1.8-7.7) Lymphocytes # (Auto) 3.3 x10^3/uL (1.0-4.8) Monocytes # (Auto) 2.3 x10^3/uL (0.0-1.1) Eosinophils # (Auto) 0.0 x10^3/uL (0.0-0.7) Basophils # (Auto) 0.1 x10^3/uL (0.0-0.2) Segmented Neutrophils % 73 % (35-66) Lymphocytes % 20 % (24-48) Monocytes % 7 % (0-10) Platelet Estimate Adequate (ADEQUATE) Sodium Level 138 mmol/L (136-145) Potassium Level 4.4 mmol/L (3.5-5.1) Chloride Level 103 mmol/L (98-107) Carbon Dioxide Level 23 mmol/L (21-32) Anion Gap 12 (6-14) Blood Urea Nitrogen 17 mg/dL (8-26) Creatinine 1.2 mg/dL (0.7-1.3) Estimated GFR (Cockcroft-Gault) 76.6 BUN/Creatinine Ratio 14 (6-20) Glucose Level 104 mg/dL (70-99) Calcium Level 9.3 mg/dL (8.5-10.1) Total Bilirubin 0.5 mg/dL (0.2-1.0) Aspartate Amino Transf (AST/SGOT) 19 U/L (15-37) Alanine Aminotransferase (ALT/SGPT) 22 U/L (16-63) Alkaline Phosphatase 94 U/L (46-116) Total Protein 8.0 g/dL (6.4-8.2) Albumin 3.7 g/dL (3.4-5.0) Albumin/Globulin Ratio 0.9 (1.0-1.7) Urine Collection Type Unknown Urine Color Yellow Urine Clarity Clear Urine pH 5.0 (<5.0-8.0) Urine Specific [place] >=1.030 (1.000-1.030) Urine Protein Negative mg/dL (NEG-TRACE) Urine Glucose (UA) Negative mg/dL (NEG) Urine Ketones (Stick) Trace mg/dL (NEG) Urine Blood Negative (NEG) Urine Nitrite Negative (NEG) Urine Bilirubin Negative (NEG) Urine Urobilinogen Dipstick 0.2 mg/dL (0.2 mg/dL) Urine Leukocyte Esterase Negative (NEG) Urine RBC 0 /HPF (0-2) Urine WBC 0 /HPF (0-4) Urine Squamous Epithelial Cells Occ /LPF Urine Bacteria 0 /HPF (0-FEW) Urine Mucus Slight /LPF SARS-CoV-2 RNA (MADI) Negative (Negative) SARS-CoV-2 Antigen (Rapid) Negative (NEGATIVE) Test 02/04/21 15:41 Glucose (Fingerstick) 109 mg/dL (70-99) Assessment/Plan Assessment/Plan A rectal abscess plan incision and drainage CESAR MONTANA MD Feb 04, 2021 16:14
--- NOTE | 2021-02-04 16:17 | PDOC4 ---
Operative Note Operative Note Date: February 042020 at 1615 Preoperative diagnosis: Perirectal abscess Postoperative diagnosis: Same Procedure: Incision and drainage of perirectal abscess Surgeon: Mario Specimen: Cultures Dictation: Patient is a 55-year-old gentleman has been to the hospital with perirectal abscess elevated white count. Procedure of incision and drainage was explained to the patient detail was benefits were also discussed including bleeding infection alternatives to this procedure also discussed with the patient who seemed to understand and gave a verbal written consent to have the p rocedure performed. Patient was taken to the operating room placed in supine position general anesthesia was initiated once patient was sleeping in bed he was placed in thymic positioning and his perineum was prepped and draped usual sterile fashion was Betadine scrub and solution. Area around the fluctuant area was injected with quarter percent Marcaine with epinephrine incision was made with 11 blade scalpel upon entering through the skin copious amounts purulent material were expressed these were suctioned and cultured the wound was then irrigated with copious amounts normal saline suctioned dry and then packed with half-inch iodoform Nu Gauze. The wound was dressed with ABDs and mesh briefs. Patient was awakened and extubated in the operating room taken to recovery in stable condition all sponge instrument needle counts listed as correct estimated blood loss 10 mL. CESAR MONTANA MD Feb 04, 2021 16:17
--- NOTE | 2021-02-04 16:50 | PDOC1 ---
History and Physical Date of Admission Date of Admission DATE: 02/04/21 TIME: 16:49 Identification/Chief Complaint Chief Complaint Perirectal abscess Source Source: Chart review, Patient History of Present Illness History of Present Illness Patient is a 55-year-old male past medical history DM2, HTN, and perirectal abscesses, who presents to the ED with complaint of perirectal abscess. Notes painful abscess to his rectum for the past week. Labs on admission showed WBC 17.8, CBG 109. Consultation was placed to general surgery, and patient was taken to the OR for surgical I&D. He was admitted for further medical management. Past Medical History Past Medical History DM2, HLD, HTN, prior rectal abscess, chronic back pain Cardiovascular: HTN Musculoskeletal: low back pain Infectious disease: No pertinent hx Renal/: No pertinent hx Past Surgical History Past Surgical History: Other (Surgical I&D) Family History Family History: No Significant Social History Smoke: 1 pack per day ALCOHOL: none Drugs: None Current Medications Current Medications Current Medications Morphine Sulfate (Morphine Sulfate) 4 mg 1X ONCE IM ; Start 02/04/21 at 09:00; Stop 02/04/21 at 09:16; Status DC Morphine Sulfate (Morphine Sulfate) 4 mg 1X ONCE IVP Last administered on 02/04/21at 09:29; Start 02/04/21 at 09:30; Stop 02/04/21 at 09:31; Status DC Iohexol (Omnipaque 300 Mg/ml) 75 ml 1X ONCE IV Last administered on 02/04/21at 10:29; Start 02/04/21 at 10:15; Stop 02/04/21 at 10:16; Status DC Info (CONTRAST GIVEN -- Rx MONITORING) 1 each PRN DAILY PRN MC SEE COMMENTS; Start 02/04/21 at 10:15; Stop 02/06/21 at 10:14 Piperacillin Sod/ Tazobactam Sod 4.5 gm/Sodium Chloride 100 ml @ 200 mls/hr 1X ONCE IV Last administered on 02/04/21at 11:21; Start 02/04/21 at 11:30; Stop 02/04/21 at 11:59; Status DC Fentanyl Citrate (Fentanyl 2ml Vial) 25 mcg PRN Q5MIN PRN IVP MILD PAIN 1-3; Start 02/04/21 at 13:15; Stop 02/05/21 at 13:14 Fentanyl Citrate (Fentanyl 2ml Vial) 50 mcg PRN Q5MIN PRN IVP MODERATE PAIN 4- 6; Start 02/04/21 at 13:15; Stop 02/05/21 at 13:14 Morphine Sulfate (Morphine Sulfate) 1 mg PRN Q10MIN PRN IVP SEVERE PAIN 7-10; Start 02/04/21 at 13:15; Stop 02/05/21 at 13:14 Ringer's Solution 1,000 ml @ 30 mls/hr Q24H IV Last administered on 02/04/21at 15:30; Start 02/04/21 at 13:15; Stop 02/05/21 at 01:14 Hydromorphone HCl (Dilaudid) 0.5 mg PRN Q10MIN PRN IVP SEVERE PAIN 7-10, 2nd CHOICE; Start 02/04/21 at 13:15; Stop 02/05/21 at 13:14 Prochlorperazine Edisylate (Compazine) 5 mg PACU PRN PRN IVP NAUSEA, MRX1; Start 02/04/21 at 13:15; Stop 02/05/21 at 13:14 Bupivacaine HCl/ Epinephrine Bitart (Sensorcain-Epi 0.5%-1:275333 Mpf) 30 ml STK-MED ONCE .ROUTE Last administered on 02/04/21at 16:05; Start 02/04/21 at 13:49; Stop 02/04/21 at 13:49; Status DC Propofol (Diprivan) 200 mg STK-MED ONCE IV ; Start 02/04/21 at 14:52; Stop 01/16 08/07 at 14:53; Status DC Lidocaine HCl (Lidocaine Pf 2% Vial) 5 ml STK-MED ONCE .ROUTE ; Start 02/04/21 at 14:53; Stop 02/04/21 at 14:53; Status DC Dexamethasone Sodium Phosphate (Decadron) 4 mg STK-MED ONCE .ROUTE ; Start 02/04/21 at 14:53; Stop 02/04/21 at 14:53; Status DC Ondansetron HCl (Zofran) 4 mg STK-MED ONCE .ROUTE ; Start 02/04/21 at 14:53; Stop 02/04/21 at 14:53; Status DC Fentanyl Citrate (Fentanyl 2ml Vial) 100 mcg STK-MED ONCE .ROUTE ; Start 02/04/21 at 14:55; Stop 02/04/21 at 14:55; Status DC Active Scripts Active Miralax (Polyethylene Glycol 3350) 17 Gm Powd.pack 1 Packet PO DAILY PRN Colace (Docusate Sodium) 100 Mg Capsule 100 Mg PO BID Reported Metformin Hcl Er (Metformin Hcl) 500 Mg Tab.er.24h 500 Mg PO DAILY Humira (Adalimumab) 40 Mg/0.8 Ml Pen.ij.kit 40 Mg SQ WEEKLY Atorvastatin Calcium 40 Mg Tablet 1 Tab PO QHS Allergies Allergies: Coded Allergies: No Known Drug Allergies (Unverified , 05/17/17) ROS Review of System GENERAL: No history of weight change, weakness or fevers. SKIN: No bruising, hair changes or rashes. EYES: No blurred, double or loss of vision. NOSE AND THROAT: No history of nosebleeds, hoarseness or sore throat. HEART: Denies chest pain, denies palpitations. LUNGS: Denies cough, hemoptysis, wheezing or shortness of breath. GASTROINTESTINAL: Perirectal abscess. Denies nausea, vomiting, abdominal pain. GENITOURINARY: Denies dysuria, frequency, urgency, hematuria. NEUROLOGIC: Denies history of numbness, tingling, tremor or weakness. PSYCHIATRIC: Denies anxiety, denies depression. ENDOCRINE: No history of heat or cold intolerance, polyuria or polydipsia. EXTREMITIES: Denies muscle weakness, joint pain, pain on walking or stiffness. Physical Exam Physical Exam General: Alert, Oriented X3, Cooperative, No acute distress HEENT: PERRLA, EOMI Lungs: Clear to auscultation, Normal air movement Heart: RRR, no murmurs Cardiovascular: S1, S2 Abdomen: Normal bowel sounds, Soft, No tenderness Extremities: No clubbing, No cyanosis Skin: At the time of my exam patient was s/p I&D with perirectal packing in place without significant surrounding erythema. No rashes, No significant lesion Neuro: Normal speech, Normal tone, Sensation intact Psych/Mental Status: Mental status NL, Mood NL Vitals Vitals Vital Signs Date Time Temp Pulse Resp B/P (MAP) Pulse Ox O2 Delivery O2 Flow Rate FiO2 02/04/21 16:33 60 13 101/63 97 Simple Mask 13 02/04/21 16:18 97.9 97.9 Labs Labs Laboratory Tests Test 02/04/21 09:25 02/04/21 12:45 02/04/21 13:34 02/04/21 13:39 White Blood Count 17.8 x10^3/uL (4.0-11.0) Red Blood Count 5.56 x10^6/uL (4.30-5.70) Hemoglobin 16.9 g/dL (13.0-17.5) Hematocrit 49.7 % (39.0-53.0) Mean Corpuscular Volume 90 fL (79-100) Mean Corpuscular Hemoglobin 30 pg (25-35) Mean Corpuscular Hemoglobin Concent 34 g/dL (31-37) Red Cell Distribution Width 14.8 % (11.5-14.5) Platelet Count 303 x10^3/uL (140-400) Neutrophils (%) (Auto) 68 % (31-73) Lymphocytes (%) (Auto) 19 % (24-48) Monocytes (%) (Auto) 13 % (0-9) Eosinophils (%) (Auto) 0 % (0-3) Basophils (%) (Auto) 1 % (0-3) Neutrophils # (Auto) 12.1 x10^3/uL (1.8-7.7) Lymphocytes # (Auto) 3.3 x10^3/uL (1.0-4.8) Monocytes # (Auto) 2.3 x10^3/uL (0.0-1.1) Eosinophils # (Auto) 0.0 x10^3/uL (0.0-0.7) Basophils # (Auto) 0.1 x10^3/uL (0.0-0.2) Segmented Neutrophils % 73 % (35-66) Lymphocytes % 20 % (24-48) Monocytes % 7 % (0-10) Platelet Estimate Adequate (ADEQUATE) Sodium Level 138 mmol/L (136-145) Potassium Level 4.4 mmol/L (3.5-5.1) Chloride Level 103 mmol/L (98-107) Carbon Dioxide Level 23 mmol/L (21-32) Anion Gap 12 (6-14) Blood Urea Nitrogen 17 mg/dL (8-26) Creatinine 1.2 mg/dL (0.7-1.3) Estimated GFR (Cockcroft-Gault) 76.6 BUN/Creatinine Ratio 14 (6-20) Glucose Level 104 mg/dL (70-99) Calcium Level 9.3 mg/dL (8.5-10.1) Total Bilirubin 0.5 mg/dL (0.2-1.0) Aspartate Amino Transf (AST/SGOT) 19 U/L (15-37) Alanine Aminotransferase (ALT/SGPT) 22 U/L (16-63) Alkaline Phosphatase 94 U/L (46-116) Total Protein 8.0 g/dL (6.4-8.2) Albumin 3.7 g/dL (3.4-5.0) Albumin/Globulin Ratio 0.9 (1.0-1.7) Urine Collection Type Unknown Urine Color Yellow Urine Clarity Clear Urine pH 5.0 (<5.0-8.0) Urine Specific [place] >=1.030 (1.000-1.030) Urine Protein Negative mg/dL (NEG-TRACE) Urine Glucose (UA) Negative mg/dL (NEG) Urine Ketones (Stick) Trace mg/dL (NEG) Urine Blood Negative (NEG) Urine Nitrite Negative (NEG) Urine Bilirubin Negative (NEG) Urine Urobilinogen Dipstick 0.2 mg/dL (0.2 mg/dL) Urine Leukocyte Esterase Negative (NEG) Urine RBC 0 /HPF (0-2) Urine WBC 0 /HPF (0-4) Urine Squamous Epithelial Cells Occ /LPF Urine Bacteria 0 /HPF (0-FEW) Urine Mucus Slight /LPF SARS-CoV-2 RNA (MADI) Negative (Negative) SARS-CoV-2 Antigen (Rapid) Negative (NEGATIVE) Test 02/04/21 15:41 Glucose (Fingerstick) 109 mg/dL (70-99) Laboratory Tests Test 02/04/21 09:25 02/04/21 12:45 02/04/21 13:34 02/04/21 13:39 White Blood Count 17.8 x10^3/uL (4.0-11.0) Red Blood Count 5.56 x10^6/uL (4.30-5.70) Hemoglobin 16.9 g/dL (13.0-17.5) Hematocrit 49.7 % (39.0-53.0) Mean Corpuscular Volume 90 fL (79-100) Mean Corpuscular Hemoglobin 30 pg (25-35) Mean Corpuscular Hemoglobin Concent 34 g/dL (31-37) Red Cell Distribution Width 14.8 % (11.5-14.5) Platelet Count 303 x10^3/uL (140-400) Neutrophils (%) (Auto) 68 % (31-73) Lymphocytes (%) (Auto) 19 % (24-48) Monocytes (%) (Auto) 13 % (0-9) Eosinophils (%) (Auto) 0 % (0-3) Basophils (%) (Auto) 1 % (0-3) Neutrophils # (Auto) 12.1 x10^3/uL (1.8-7.7) Lymphocytes # (Auto) 3.3 x10^3/uL (1.0-4.8) Monocytes # (Auto) 2.3 x10^3/uL (0.0-1.1) Eosinophils # (Auto) 0.0 x10^3/uL (0.0-0.7) Basophils # (Auto) 0.1 x10^3/uL (0.0-0.2) Segmented Neutrophils % 73 % (35-66) Lymphocytes % 20 % (24-48) Monocytes % 7 % (0-10) Platelet Estimate Adequate (ADEQUATE) Sodium Level 138 mmol/L (136-145) Potassium Level 4.4 mmol/L (3.5-5.1) Chloride Level 103 mmol/L (98-107) Carbon Dioxide Level 23 mmol/L (21-32) Anion Gap 12 (6-14) Blood Urea Nitrogen 17 mg/dL (8-26) Creatinine 1.2 mg/dL (0.7-1.3) Estimated GFR (Cockcroft-Gault) 76.6 BUN/Creatinine Ratio 14 (6-20) Glucose Level 104 mg/dL (70-99) Calcium Level 9.3 mg/dL (8.5-10.1) Total Bilirubin 0.5 mg/dL (0.2-1.0) Aspartate Amino Transf (AST/SGOT) 19 U/L (15-37) Alanine Aminotransferase (ALT/SGPT) 22 U/L (16-63) Alkaline Phosphatase 94 U/L (46-116) Total Protein 8.0 g/dL (6.4-8.2) Albumin 3.7 g/dL (3.4-5.0) Albumin/Globulin Ratio 0.9 (1.0-1.7) Urine Collection Type Unknown Urine Color Yellow Urine Clarity Clear Urine pH 5.0 (<5.0-8.0) Urine Specific [place] >=1.030 (1.000-1.030) Urine Protein Negative mg/dL (NEG-TRACE) Urine Glucose (UA) Negative mg/dL (NEG) Urine Ketones (Stick) Trace mg/dL (NEG) Urine Blood Negative (NEG) Urine Nitrite Negative (NEG) Urine Bilirubin Negative (NEG) Urine Urobilinogen Dipstick 0.2 mg/dL (0.2 mg/dL) Urine Leukocyte Esterase Negative (NEG) Urine RBC 0 /HPF (0-2) Urine WBC 0 /HPF (0-4) Urine Squamous Epithelial Cells Occ /LPF Urine Bacteria 0 /HPF (0-FEW) Urine Mucus Slight /LPF SARS-CoV-2 RNA (MADI) Negative (Negative) SARS-CoV-2 Antigen (Rapid) Negative (NEGATIVE) Test 02/04/21 15:41 Glucose (Fingerstick) 109 mg/dL (70-99) Images Images PATIENT: ANNAMARIE CONROY CACCOUNT: [id number] : 1965 LOCATION: ER AGE: 55 SEX: M EXAM STATUS: REG ER ORD. PHYSICIAN: ELEUTERIO MCCARTY MD REASON: perirectal abscess, hx of same with need for surgery PROCEDURE: CT ABD PELV W/ IV CONTRST ONLY INDICATION: Reason: perirectal abscess, hx of same with need for surgery / Spl. Instructions: / History: . COMPARISON: April 2017 TECHNIQUE: Axial CT images obtained through the abdomen and pelvis with contrast. One or more of the following individualized dose reduction techniques were utilized for this examination: 1. Automated exposure control; 2. Adjustment of the mA and/or kV according to patient size; 3. Use of iterative reconstruction technique. FINDINGS: Mild dependent airspace opacities commonly from atelectasis. Enlarged lymph nodes in the bilateral groin. For example on the left measuring up to 15 mm short axis. No intrahepatic bile duct dilation. No peripancreatic fluid collection. No hydronephrosis. Urinary bladder is partially distended. There is a rim-enhancing fluid and air collection identified in the left perianal region measuring 50 x 44 x 27 mm. The proximal aspect of this fluid collection abuts the levator insertion. No periappendiceal inflammatory changes. Ossific densities adjacent to the left proximal femur with postoperative changes to the left proximal femur. IMPRESSION: * Fluid and air collection is seen at the left perianal region. Could be from abscess formation. * Enlarged lymph nodes in the groin which could be reactive in nature VTE Prophylaxis Ordered VTE Prophylaxis Devices: Yes VTE Pharmacological Prophylaxi: No Assessment/Plan Assessment/Plan Perirectal abscess Chronic back pain DM2 HLD Plan: Consult placed to general surgery Patient was taken to the OR and had incision and drainage of perirectal abscess; cultures taken. Continue vancomycin for now, but I doubt he will need antibiotics on discharge. Follow cultures Provide pain management Resume home medications FEN - Cardiac diet PPX - SCDs FULL CODE Dispo - inpatient for above Justifications for Admission Other Justification ZOILA TOVAR MD Feb 04, 2021 16:50
[2021-02-04] MEDS ORDERED: oxyCODONE/APAP 5/325 1 TAB TABLET PO PRN ×2 (18:45)
[2021-02-04] MEDS ORDERED: HYDROcodone/APAP 5/325MG 1 TAB TABLET PO PRN ×2 (18:45)
[2021-02-04] MEDS ORDERED: POLYETHYLENE GLYCOL 3350 17 GM PACKET. PO PRN (18:45)
[2021-02-04] MEDS ORDERED: ZOLPIDEM 5 MG TABLET. PO PRN (18:45)
[2021-02-04] MEDS ORDERED: CALCIUM CARBONATE 500 MG TAB.CHEW PO PRN (18:45)
[2021-02-04] MEDS ORDERED: MAG HYDROX/ALUMINUM HYD/SIMETH 30 ML ORAL.SUSP PO PRN (18:45)
[2021-02-04] MEDS ORDERED: ONDANSETRON PF 4 MG/2 ML VIAL. IVP PRN (18:45)
[2021-02-04] MEDS ORDERED: ACETAMINOPHEN 325 MG TABLET. PO PRN (18:45)
[2021-02-04] MEDS ORDERED: MAGNESIUM HYDROXIDE 2,400 MG/30 ML ORAL.SUSP. PO PRN (18:45)
[2021-02-04] MEDS ORDERED: VANCOMYCIN 2 GM in IV NORMAL SALINE 500ML BAG 500 ML IV ONE (19:30)
[2021-02-04] MEDS: DOCUSATE SODIUM 100 MG CAPSULE. PO SCH (21:07)
[2021-02-04] MEDS: ATORVASTATIN CALCIUM 40 MG TABLET. PO SCH (21:07)
[2021-02-04] MEDS: HEPARIN for SUB-Q USE 5,000 UNIT/ML VIAL. SQ SCH (21:09)
[2021-02-05] MEDS: VANCOMYCIN PER PHARMACY MC PRN ×2 (02:49→14:06)
--- NOTE | 2021-02-05 02:50 | NUR ---
Pharmacy Vancomycin Dosing Note S:Consulted to monitor and dose vancomycin started 02/04/21. O:ANNAMARIE CONROY is a 55 year old M with Abscess Cellulitis . Height: 5 feet, 6 inches Weight: 90.0 kg [place] Body Weight: 63.80 Adjusted Body Weight: 74.28 Dosing Weight: Actual Other Antibiotics: ZOSYN 4.5G X 1 02/04 LABS: Last BUN: 17 Last Creatinine: 1.2 Creatinine Clearance: 74 mL/min Last WBC: 17.8 Last Procalcitonin: Tmax (past 24 hours): 99.1 Microbiology: 02/05 INTRAOP CX TAKEN I/O: Drug Levels: Last level: on at Last dose given 02/04/21 at 2109 Vancomycin Dosing: Loading Dose: 2000 mg x1 Dosing Weight: Actual Target Trough: 10-20 A: Based on: WEIGHT, CRCL~74, P: 1. INITIATE Vancomycin 1250 mg IV q12h AFTER 2000 MG LOADING DOSE 2. Follow up Trough level on 02/06/21 at 0830 3. Pharmacy will continue to monitor, follow and adjust therapy as needed. LEDA MARCELINO RPH, 02/05/21 0254
[2021-02-05 03:00] VITALS: BP 124/69
[2021-02-05 04:25] LABS: BASO # 0.1 x10^3/uL (0.0-0.2); BASO % 1 % (0-3); EOS % 0 % (0-3); HEMATOCRIT 51.1 % (39.0-53.0); LYMPH # 3.3 x10^3/uL (1.0-4.8); LYMPH % 19 % (24-48); MEAN CORPUSCULAR HEMOGLOBIN 31 pg (25-35); MEAN CORPUSCULAR HGB CONC 33 g/dL (31-37); MEAN CORPUSCULAR VOLUME 92 fL (79-100); MONO # 1.2 x10^3/uL (0.0-1.1); MONO % 7 % (0-9); NEUT # 13.1 x10^3/uL (1.8-7.7); NEUT % 74 % (31-73); PLATELET COUNT 251 x10^3/uL (140-400); RED BLOOD COUNT 5.53 x10^6/uL (4.30-5.70); RED CELL DISTRIBUTION WIDTH 15.3 % (11.5-14.5); WHITE BLOOD COUNT 17.7 x10^3/uL (4.0-11.0)
[2021-02-05 04:49] LABS: CREATININE 1.2 mg/dL (0.7-1.3); GFR 76.6; POTASSIUM 4.9 mmol/L (3.5-5.1)
[2021-02-05] MEDS: HEPARIN for SUB-Q USE 5,000 UNIT/ML VIAL. SQ SCH ×3 (06:11→22:09)
[2021-02-05 07:00] VITALS: BP 129/63
--- NOTE | 2021-02-05 07:30 | PDOC ---
[employer] PROGRESS NOTE Date of Service DOS: DATE: 02/05/21 TIME: 07:27 Chief Complaint Chief Complaint Perirectal abscess Chronic back pain DM2 HLD Plan: Consult placed to general surgery Patient was taken to the OR and had incision and drainage of perirectal abscess; cultures taken. Continue vancomycin for now, but I doubt he will need antibiotics on discharge. Follow cultures Provide pain management Resume home medications FEN - Cardiac diet PPX - SCDs FULL CODE Dispo - inpatient for above History of Present Illness History of Present Illness Mr Myles is a 55-year-old male past medical history DM2, HTN, and perirectal abscesses, who presents to the ED with complaint of perirectal abscess. Notes painful abscess to his rectum for the past week. Labs on admission showed WBC 17.8, CBG 109. Consultation was placed to general surgery, and patient was taken to the OR for surgical I&D 02/04/2021. He was admitted for further medical management. Labs stable. Afebrile. Pain better than prior to admission but still 6/10 currently. Seen while eating. Zosyn added for anaerobic coverage. Cultures pending. Vitals/I&O Vitals/I&O: Vital Signs Date Time Temp Pulse Resp B/P (MAP) Pulse Ox O2 Delivery O2 Flow Rate FiO2 02/05/21 03:00 98.3 59 18 124/69 (87) 93 Room Air 98.3 02/04/21 17:03 6 I & O 02/04/21 02/04/21 02/05/21 15:00 23:00 07:00 Intake Total 340 ml 500 ml Output Total 5 ml Balance 335 ml 500 ml Physical Exam General: Alert, Oriented X3, Cooperative, mild distress Heart: Regular rate, No murmurs Abdomen: Normal bowel sounds, Soft, No tenderness, Other (Rectal exam shows fluctuant area to the right of the rectum consistent with CT findings) Extremities: No edema Skin: No significant lesion Labs Labs: Laboratory Tests Test 02/04/21 09:25 02/04/21 12:45 02/04/21 13:34 02/04/21 13:39 White Blood Count 17.8 x10^3/uL (4.0-11.0) Red Blood Count 5.56 x10^6/uL (4.30-5.70) Hemoglobin 16.9 g/dL (13.0-17.5) Hematocrit 49.7 % (39.0-53.0) Mean Corpuscular Volume 90 fL (79-100) Mean Corpuscular Hemoglobin 30 pg (25-35) Mean Corpuscular Hemoglobin Concent 34 g/dL (31-37) Red Cell Distribution Width 14.8 % (11.5-14.5) Platelet Count 303 x10^3/uL (140-400) Neutrophils (%) (Auto) 68 % (31-73) Lymphocytes (%) (Auto) 19 % (24-48) Monocytes (%) (Auto) 13 % (0-9) Eosinophils (%) (Auto) 0 % (0-3) Basophils (%) (Auto) 1 % (0-3) Neutrophils # (Auto) 12.1 x10^3/uL (1.8-7.7) Lymphocytes # (Auto) 3.3 x10^3/uL (1.0-4.8) Monocytes # (Auto) 2.3 x10^3/uL (0.0-1.1) Eosinophils # (Auto) 0.0 x10^3/uL (0.0-0.7) Basophils # (Auto) 0.1 x10^3/uL (0.0-0.2) Segmented Neutrophils % 73 % (35-66) Lymphocytes % 20 % (24-48) Monocytes % 7 % (0-10) Platelet Estimate Adequate (ADEQUATE) Sodium Level 138 mmol/L (136-145) Potassium Level 4.4 mmol/L (3.5-5.1) Chloride Level 103 mmol/L (98-107) Carbon Dioxide Level 23 mmol/L (21-32) Anion Gap 12 (6-14) Blood Urea Nitrogen 17 mg/dL (8-26) Creatinine 1.2 mg/dL (0.7-1.3) Estimated GFR (Cockcroft-Gault) 76.6 BUN/Creatinine Ratio 14 (6-20) Glucose Level 104 mg/dL (70-99) Calcium Level 9.3 mg/dL (8.5-10.1) Total Bilirubin 0.5 mg/dL (0.2-1.0) Aspartate Amino Transf (AST/SGOT) 19 U/L (15-37) Alanine Aminotransferase (ALT/SGPT) 22 U/L (16-63) Alkaline Phosphatase 94 U/L (46-116) Total Protein 8.0 g/dL (6.4-8.2) Albumin 3.7 g/dL (3.4-5.0) Albumin/Globulin Ratio 0.9 (1.0-1.7) Urine Collection Type Unknown Urine Color Yellow Urine Clarity Clear Urine pH 5.0 (<5.0-8.0) Urine Specific [place] >=1.030 (1.000-1.030) Urine Protein Negative mg/dL (NEG-TRACE) Urine Glucose (UA) Negative mg/dL (NEG) Urine Ketones (Stick) Trace mg/dL (NEG) Urine Blood Negative (NEG) Urine Nitrite Negative (NEG) Urine Bilirubin Negative (NEG) Urine Urobilinogen Dipstick 0.2 mg/dL (0.2 mg/dL) Urine Leukocyte Esterase Negative (NEG) Urine RBC 0 /HPF (0-2) Urine WBC 0 /HPF (0-4) Urine Squamous Epithelial Cells Occ /LPF Urine Bacteria 0 /HPF (0-FEW) Urine Mucus Slight /LPF SARS-CoV-2 RNA (MADI) Negative (Negative) SARS-CoV-2 Antigen (Rapid) Negative (NEGATIVE) Test 02/04/21 15:41 02/04/21 21:11 02/05/21 03:20 Glucose (Fingerstick) 109 mg/dL (70-99) 181 mg/dL (70-99) White Blood Count 17.7 x10^3/uL (4.0-11.0) Red Blood Count 5.53 x10^6/uL (4.30-5.70) Hemoglobin 17.0 g/dL (13.0-17.5) Hematocrit 51.1 % (39.0-53.0) Mean Corpuscular Volume 92 fL (79-100) Mean Corpuscular Hemoglobin 31 pg (25-35) Mean Corpuscular Hemoglobin Concent 33 g/dL (31-37) Red Cell Distribution Width 15.3 % (11.5-14.5) Platelet Count 251 x10^3/uL (140-400) Neutrophils (%) (Auto) 74 % (31-73) Lymphocytes (%) (Auto) 19 % (24-48) Monocytes (%) (Auto) 7 % (0-9) Eosinophils (%) (Auto) 0 % (0-3) Basophils (%) (Auto) 1 % (0-3) Neutrophils # (Auto) 13.1 x10^3/uL (1.8-7.7) Lymphocytes # (Auto) 3.3 x10^3/uL (1.0-4.8) Monocytes # (Auto) 1.2 x10^3/uL (0.0-1.1) Eosinophils # (Auto) 0.0 x10^3/uL (0.0-0.7) Basophils # (Auto) 0.1 x10^3/uL (0.0-0.2) Sodium Level 138 mmol/L (136-145) Potassium Level 4.9 mmol/L (3.5-5.1) Chloride Level 104 mmol/L (98-107) Carbon Dioxide Level 24 mmol/L (21-32) Anion Gap 10 (6-14) Blood Urea Nitrogen 17 mg/dL (8-26) Creatinine 1.2 mg/dL (0.7-1.3) Estimated GFR (Cockcroft-Gault) 76.6 Glucose Level 140 mg/dL (70-99) Calcium Level 9.0 mg/dL (8.5-10.1) Comment Review of Relevant I have reviewed the following items migue (where applicable) has been applied. Medications: Current Medications Medications (Trade) Dose Ordered Sig/Cristina Route PRN Reason Start Time Stop Time Status Last Admin Dose Admin Morphine Sulfate (Morphine Sulfate) 4 mg 1X ONCE IVP 02/04/21 09:30 02/04/21 09:31 DC 02/04/21 09:29 Iohexol (Omnipaque 300 Mg/ml) 75 ml 1X ONCE IV 02/04/21 10:15 02/04/21 10:16 DC 02/04/21 10:29 Piperacillin Sod/ Tazobactam Sod 4.5 gm/Sodium Chloride 100 ml @ 200 mls/hr 1X ONCE IV 02/04/21 11:30 02/04/21 11:59 DC 02/04/21 11:21 Ringer's Solution 1,000 ml @ 30 mls/hr Q24H IV 02/04/21 13:15 02/05/21 01:14 DC 02/04/21 15:30 Bupivacaine HCl/ Epinephrine Bitart (Sensorcain-Epi 0.5%-1:382160 Mpf) 30 ml STK-MED ONCE .ROUTE 02/04/21 13:49 02/04/21 13:49 DC 02/04/21 16:05 Acetaminophen/ Hydrocodone Bitart (Lortab 5/325) 1 tab PRN Q4HRS PRN PO MILD PAIN 1-3 02/04/21 18:45 02/05/21 01:33 Heparin Sodium (Porcine) (Heparin Sodium) 5,000 unit Q8HRS SQ 02/04/21 22:00 02/05/21 06:11 Atorvastatin Calcium (Lipitor) 40 mg QHS PO 02/04/21 21:00 02/04/21 21:07 Docusate Sodium (Colace) 100 mg BID PO 02/04/21 21:00 02/04/21 21:07 Vancomycin HCl (Vanco Per Pharmacy) 1 each PRN DAILY PRN MC SEE COMMENTS 02/04/21 18:45 02/05/21 02:49 Vancomycin HCl 2 gm/Sodium Chloride 500 ml @ 250 mls/hr 1X ONCE IV 02/04/21 19:30 02/04/21 21:29 DC 02/04/21 21:09 Justifications for Admission Other Justification SCARLETT BENNETT MD Feb 05, 2021 07:30
[2021-02-05] MEDS: DOCUSATE SODIUM 100 MG CAPSULE. PO SCH ×2 (08:42→22:00)
[2021-02-05] MEDS: PIPERACILLIN/TAZOBACTAM 3.375 GM in IV NORMAL SALINE 50ML 50 ML IV SCH ×2 (08:43→18:00)
[2021-02-05] MEDS: VANCOMYCIN 1.25 GM in IV NORMAL SALINE 250ML 250 ML IV SCH ×2 (09:47→21:00)
--- NOTE | 2021-02-05 10:50 | NUR ---
SW following. Discussed with RN, pt from home alone, room air, ada diet, COVID-19 negative. Pt had an I&D on 02/04/21, IV abx. RN advised no SW needs at this time. SW will continue to follow.
[2021-02-05 11:00] VITALS: BP 96/54
--- NOTE | 2021-02-05 14:44 | NUR ---
New IV attemtp unsuccessful x2. Dee Dee,RN nursing finishing department supervisor in to attempt new Iv.
--- NOTE | 2021-02-05 14:58 | PDOC ---
GRABIEL LLOYD SVP [employer] 02/05/21 1458: SURGICAL PROGRESS NOTE DATE: 02/05/21 TIME: 14:57 Subjective doing ok moving better Vital Signs Vital Signs Date Time Temp Pulse Resp B/P (MAP) Pulse Ox O2 Delivery O2 Flow Rate FiO2 02/05/21 11:00 97.7 64 14 96/54 (68) 91 Room Air 97.7 02/05/21 07:30 6.0 I&O Intake and Output 02/05/21 07:00 Intake Total 840 ml Output Total 5 ml Balance 835 ml Intake Oral 90 ml IV Total 750 ml Output Estimated Blood Loss 5 ml # Voids 1 General: Alert, Cooperative Skin: Other (wound packed ) Labs Laboratory Tests Test 02/04/21 09:25 02/04/21 12:45 02/04/21 13:34 02/04/21 13:39 White Blood Count 17.8 x10^3/uL (4.0-11.0) Red Blood Count 5.56 x10^6/uL (4.30-5.70) Hemoglobin 16.9 g/dL (13.0-17.5) Hematocrit 49.7 % (39.0-53.0) Mean Corpuscular Volume 90 fL (79-100) Mean Corpuscular Hemoglobin 30 pg (25-35) Mean Corpuscular Hemoglobin Concent 34 g/dL (31-37) Red Cell Distribution Width 14.8 % (11.5-14.5) Platelet Count 303 x10^3/uL (140-400) Neutrophils (%) (Auto) 68 % (31-73) Lymphocytes (%) (Auto) 19 % (24-48) Monocytes (%) (Auto) 13 % (0-9) Eosinophils (%) (Auto) 0 % (0-3) Basophils (%) (Auto) 1 % (0-3) Neutrophils # (Auto) 12.1 x10^3/uL (1.8-7.7) Lymphocytes # (Auto) 3.3 x10^3/uL (1.0-4.8) Monocytes # (Auto) 2.3 x10^3/uL (0.0-1.1) Eosinophils # (Auto) 0.0 x10^3/uL (0.0-0.7) Basophils # (Auto) 0.1 x10^3/uL (0.0-0.2) Segmented Neutrophils % 73 % (35-66) Lymphocytes % 20 % (24-48) Monocytes % 7 % (0-10) Platelet Estimate Adequate (ADEQUATE) Sodium Level 138 mmol/L (136-145) Potassium Level 4.4 mmol/L (3.5-5.1) Chloride Level 103 mmol/L (98-107) Carbon Dioxide Level 23 mmol/L (21-32) Anion Gap 12 (6-14) Blood Urea Nitrogen 17 mg/dL (8-26) Creatinine 1.2 mg/dL (0.7-1.3) Estimated GFR (Cockcroft-Gault) 76.6 BUN/Creatinine Ratio 14 (6-20) Glucose Level 104 mg/dL (70-99) Calcium Level 9.3 mg/dL (8.5-10.1) Total Bilirubin 0.5 mg/dL (0.2-1.0) Aspartate Amino Transf (AST/SGOT) 19 U/L (15-37) Alanine Aminotransferase (ALT/SGPT) 22 U/L (16-63) Alkaline Phosphatase 94 U/L (46-116) Total Protein 8.0 g/dL (6.4-8.2) Albumin 3.7 g/dL (3.4-5.0) Albumin/Globulin Ratio 0.9 (1.0-1.7) Urine Collection Type Unknown Urine Color Yellow Urine Clarity Clear Urine pH 5.0 (<5.0-8.0) Urine Specific Mccoll >=1.030 (1.000-1.030) Urine Protein Negative mg/dL (NEG-TRACE) Urine Glucose (UA) Negative mg/dL (NEG) Urine Ketones (Stick) Trace mg/dL (NEG) Urine Blood Negative (NEG) Urine Nitrite Negative (NEG) Urine Bilirubin Negative (NEG) Urine Urobilinogen Dipstick 0.2 mg/dL (0.2 mg/dL) Urine Leukocyte Esterase Negative (NEG) Urine RBC 0 /HPF (0-2) Urine WBC 0 /HPF (0-4) Urine Squamous Epithelial Cells Occ /LPF Urine Bacteria 0 /HPF (0-FEW) Urine Mucus Slight /LPF SARS-CoV-2 RNA (MADI) Negative (Negative) SARS-CoV-2 Antigen (Rapid) Negative (NEGATIVE) Test 02/04/21 15:41 02/04/21 21:11 02/05/21 03:20 02/05/21 08:42 Glucose (Fingerstick) 109 mg/dL (70-99) 181 mg/dL (70-99) 110 mg/dL (70-99) White Blood Count 17.7 x10^3/uL (4.0-11.0) Red Blood Count 5.53 x10^6/uL (4.30-5.70) Hemoglobin 17.0 g/dL (13.0-17.5) Hematocrit 51.1 % (39.0-53.0) Mean Corpuscular Volume 92 fL (79-100) Mean Corpuscular Hemoglobin 31 pg (25-35) Mean Corpuscular Hemoglobin Concent 33 g/dL (31-37) Red Cell Distribution Width 15.3 % (11.5-14.5) Platelet Count 251 x10^3/uL (140-400) Neutrophils (%) (Auto) 74 % (31-73) Lymphocytes (%) (Auto) 19 % (24-48) Monocytes (%) (Auto) 7 % (0-9) Eosinophils (%) (Auto) 0 % (0-3) Basophils (%) (Auto) 1 % (0-3) Neutrophils # (Auto) 13.1 x10^3/uL (1.8-7.7) Lymphocytes # (Auto) 3.3 x10^3/uL (1.0-4.8) Monocytes # (Auto) 1.2 x10^3/uL (0.0-1.1) Eosinophils # (Auto) 0.0 x10^3/uL (0.0-0.7) Basophils # (Auto) 0.1 x10^3/uL (0.0-0.2) Sodium Level 138 mmol/L (136-145) Potassium Level 4.9 mmol/L (3.5-5.1) Chloride Level 104 mmol/L (98-107) Carbon Dioxide Level 24 mmol/L (21-32) Anion Gap 10 (6-14) Blood Urea Nitrogen 17 mg/dL (8-26) Creatinine 1.2 mg/dL (0.7-1.3) Estimated GFR (Cockcroft-Gault) 76.6 Glucose Level 140 mg/dL (70-99) Calcium Level 9.0 mg/dL (8.5-10.1) Test 02/05/21 12:10 Glucose (Fingerstick) 91 mg/dL (70-99) Laboratory Tests Test 02/04/21 15:41 02/04/21 21:11 02/05/21 03:20 02/05/21 08:42 Glucose (Fingerstick) 109 mg/dL (70-99) 181 mg/dL (70-99) 110 mg/dL (70-99) White Blood Count 17.7 x10^3/uL (4.0-11.0) Red Blood Count 5.53 x10^6/uL (4.30-5.70) Hemoglobin 17.0 g/dL (13.0-17.5) Hematocrit 51.1 % (39.0-53.0) Mean Corpuscular Volume 92 fL (79-100) Mean Corpuscular Hemoglobin 31 pg (25-35) Mean Corpuscular Hemoglobin Concent 33 g/dL (31-37) Red Cell Distribution Width 15.3 % (11.5-14.5) Platelet Count 251 x10^3/uL (140-400) Neutrophils (%) (Auto) 74 % (31-73) Lymphocytes (%) (Auto) 19 % (24-48) Monocytes (%) (Auto) 7 % (0-9) Eosinophils (%) (Auto) 0 % (0-3) Basophils (%) (Auto) 1 % (0-3) Neutrophils # (Auto) 13.1 x10^3/uL (1.8-7.7) Lymphocytes # (Auto) 3.3 x10^3/uL (1.0-4.8) Monocytes # (Auto) 1.2 x10^3/uL (0.0-1.1) Eosinophils # (Auto) 0.0 x10^3/uL (0.0-0.7) Basophils # (Auto) 0.1 x10^3/uL (0.0-0.2) Sodium Level 138 mmol/L (136-145) Potassium Level 4.9 mmol/L (3.5-5.1) Chloride Level 104 mmol/L (98-107) Carbon Dioxide Level 24 mmol/L (21-32) Anion Gap 10 (6-14) Blood Urea Nitrogen 17 mg/dL (8-26) Creatinine 1.2 mg/dL (0.7-1.3) Estimated GFR (Cockcroft-Gault) 76.6 Glucose Level 140 mg/dL (70-99) Calcium Level 9.0 mg/dL (8.5-10.1) Test 02/05/21 12:10 Glucose (Fingerstick) 91 mg/dL (70-99) Assessment/Plan wound care eval Justicifation of Admission Dx: Justifications for Admission: Justification of Admission Dx: Yes Comments: abscess CESAR MONTANA MD 02/05/21 1507: SURGICAL PROGRESS NOTE Assessment/Plan Continue IV antibiotics wound care evaluation agree with [facility] assessment plan GRABIEL LLOYD APRN Feb 05, 2021 14:58 CESAR MONTANA MD Feb 05, 2021 15:07
[2021-02-05 15:00] VITALS: BP 154/74
[2021-02-05 19:00] VITALS: BP 135/67
[2021-02-05] MEDS: LACTOBACILLUS RHAMNOSUS GG 1 CAPSULE. PO SCH (22:00)
[2021-02-05] MEDS: ATORVASTATIN CALCIUM 40 MG TABLET. PO SCH (22:00)
[2021-02-05 23:00] VITALS: BP 139/68
[2021-02-06] MEDS: PIPERACILLIN/TAZOBACTAM 3.375 GM in IV NORMAL SALINE 50ML 50 ML IV SCH ×4 (00:20→17:56)
[2021-02-06 03:00] VITALS: BP 119/80
[2021-02-06] MEDS: HEPARIN for SUB-Q USE 5,000 UNIT/ML VIAL. SQ SCH ×3 (06:04→22:20)
[2021-02-06 07:00] VITALS: BP 118/61
[2021-02-06] MEDS: DOCUSATE SODIUM 100 MG CAPSULE. PO SCH ×2 (08:38→22:13)
[2021-02-06] MEDS: LACTOBACILLUS RHAMNOSUS GG 1 CAPSULE. PO SCH ×2 (08:38→22:13)
[2021-02-06 09:16] LABS: BASO # 0.1 x10^3/uL (0.0-0.2); BASO % 1 % (0-3); EOS # 0.1 x10^3/uL (0.0-0.7); EOS % 1 % (0-3); HEMATOCRIT 46.1 % (39.0-53.0); HEMOGLOBIN 15.4 g/dL (13.0-17.5); LYMPH # 3.9 x10^3/uL (1.0-4.8); LYMPH % 36 % (24-48); MEAN CORPUSCULAR HEMOGLOBIN 30 pg (25-35); MEAN CORPUSCULAR HGB CONC 33 g/dL (31-37); MEAN CORPUSCULAR VOLUME 90 fL (79-100); MONO % 9 % (0-9); NEUT # 5.9 x10^3/uL (1.8-7.7); NEUT % 54 % (31-73); PLATELET COUNT 282 x10^3/uL (140-400); RED BLOOD COUNT 5.11 x10^6/uL (4.30-5.70); RED CELL DISTRIBUTION WIDTH 15.1 % (11.5-14.5); WHITE BLOOD COUNT 10.9 x10^3/uL (4.0-11.0)
[2021-02-06 09:51] LABS: CREATININE 1.2 mg/dL (0.7-1.3); GFR 76.6
[2021-02-06] MEDS: VANCOMYCIN 1.25 GM in IV NORMAL SALINE 250ML 250 ML IV SCH ×2 (09:56→22:17)
[2021-02-06] MEDS: VANCOMYCIN PER PHARMACY MC PRN (10:38)
--- NOTE | 2021-02-06 10:39 | NUR ---
Pharmacy Vancomycin Dosing Note S:Consulted to monitor and dose vancomycin started 02/04/21. O:ANNAMARIE CONROY is a 55 year old M with abscess and cellulitis. Height: 5 feet, 6 inches Weight: 90.0 kg Dosing Weight: Actual Other Antibiotics: ZOSYN 3.375G IV Q6HRS LABS: Last BUN: 17 Last Creatinine: 1.2 Creatinine Clearance: 74 mL/min Last WBC: 10.9 Last Procalcitonin: - Tmax (past 24 hours): 98.2 Microbiology: ABSCESS CX PENDING I/O: 200/- (urine output not documented) Drug Levels: Last Trough level: 14 on 02/06/21 at 0830 Last dose given 02/05/21 at 2100 A: Patient is receiving vancomycin 1250 mg IV q 12hrs. A trough of 14 is within goal range. His renal function remains stable. P: 1. Continue Vancomycin 1250 mg IV q12h 2. Follow up level in 5 - 7 days if needed 3. Pharmacy will continue to monitor, follow and adjust therapy as needed. KENEYTTA TINSLEY [facility], 02/06/21 [id number]
--- NOTE | 2021-02-06 10:41 | PDOC ---
[facility] PROGRESS NOTE Date of Service DOS: DATE: 02/06/21 TIME: 10:30 Chief Complaint Chief Complaint Perirectal abscess Chronic back pain DM2 HLD Plan: Consult placed to general surgery Patient was taken to the OR and had incision and drainage of perirectal abscess; cultures taken. Continue vancomycin for now, but I doubt he will need antibiotics on discharge. Follow cultures Provide pain management Resume home medications FEN - Cardiac diet PPX - SCDs FULL CODE Dispo - inpatient for above History of Present Illness History of Present Illness Mr Myles is a 55-year-old male past medical history DM2, HTN, and perirectal abscesses, who presents to the ED with complaint of perirectal abscess. Notes painful abscess to his rectum for the past week. Labs on admission showed WBC 17.8, CBG 109. Consultation was placed to general surgery, and patient was taken to the OR for surgical I&D 02/04/2021. He was admitted for further medical management. 02/05: Labs stable. Afebrile. Pain better than prior to admission but still 6/10 currently. Seen while eating. Zosyn added for anaerobic coverage. Cultures pending. Labs stable. Afebrile. Back pain better controlled. Cultures with gram- negative rods. Vitals/I&O Vitals/I&O: Vital Signs Date Time Temp Pulse Resp B/P (MAP) Pulse Ox O2 Delivery O2 Flow Rate FiO2 02/06/21 07:30 Room Air 02/06/21 07:00 98.0 54 18 118/61 (80) 92 98.0 02/05/21 07:30 6.0 I & O 02/05/21 02/05/21 02/06/21 15:00 23:00 07:00 Intake Total 200 ml Balance 200 ml Physical Exam General: Alert, Cooperative Heart: Regular rate, No murmurs Abdomen: Normal bowel sounds, Soft, No tenderness, Other (Rectal exam shows fluctuant area to the right of the rectum consistent with CT findings) Extremities: No edema Skin: Other (wound packed ) Labs Labs: Laboratory Tests Test 02/05/21 12:10 02/05/21 16:54 02/05/21 21:02 02/06/21 08:01 Glucose (Fingerstick) 91 mg/dL (70-99) 108 mg/dL (70-99) 104 mg/dL (70-99) 95 mg/dL (70-99) Test 02/06/21 08:55 White Blood Count 10.9 x10^3/uL (4.0-11.0) Red Blood Count 5.11 x10^6/uL (4.30-5.70) Hemoglobin 15.4 g/dL (13.0-17.5) Hematocrit 46.1 % (39.0-53.0) Mean Corpuscular Volume 90 fL (79-100) Mean Corpuscular Hemoglobin 30 pg (25-35) Mean Corpuscular Hemoglobin Concent 33 g/dL (31-37) Red Cell Distribution Width 15.1 % (11.5-14.5) Platelet Count 282 x10^3/uL (140-400) Neutrophils (%) (Auto) 54 % (31-73) Lymphocytes (%) (Auto) 36 % (24-48) Monocytes (%) (Auto) 9 % (0-9) Eosinophils (%) (Auto) 1 % (0-3) Basophils (%) (Auto) 1 % (0-3) Neutrophils # (Auto) 5.9 x10^3/uL (1.8-7.7) Lymphocytes # (Auto) 3.9 x10^3/uL (1.0-4.8) Monocytes # (Auto) 1.0 x10^3/uL (0.0-1.1) Eosinophils # (Auto) 0.1 x10^3/uL (0.0-0.7) Basophils # (Auto) 0.1 x10^3/uL (0.0-0.2) Creatinine 1.2 mg/dL (0.7-1.3) Estimated GFR (Cockcroft-Gault) 76.6 Vancomycin Level Trough 14.0 mcg/mL (10.0-20.0) Vancomycin Last Dose Date 02/05/21 Vancomycin Last Dose Time 2100 Comment Review of Relevant I have reviewed the following items migue (where applicable) has been applied. Medications: Current Medications Medications (Trade) Dose Ordered Sig/Cristina Route PRN Reason Start Time Stop Time Status Last Admin Dose Admin Vancomycin HCl (Vancomycin Trough Level) 1 each 1X ONCE MC 02/06/21 08:30 02/06/21 08:31 DC 02/06/21 08:30 Lactobacillus Rhamnosus (Culturelle) 1 cap BID PO 02/05/21 21:00 02/06/21 08:38 Justifications for Admission Other Justification SCARLETT BENNETT MD Feb 06, 2021 10:40
[2021-02-06 11:00] VITALS: BP 146/79
--- NOTE | 2021-02-06 11:15 | NUR ---
Wound Care Wound Type/Assessment: Pt seen for wound care consultation, s/p surgical I&D with General Surgery. Upon entering pt's room, pt began asking if we would be removing the packing and appears anxious. Explained dressing changes to pt, and asked if pt had any help at home for packing changes or if he would like to f/u in the [facility], pt stated "I live by myself and I ain't coming up here to see you all. I can change my own dressings like I did last year." Explained to pt that we would be spraying saline onto gauze packing prior to removal, along with picturing and measuring. Assisted pt onto side, began to clean area as packing was covered in stool, pt yelled to stop, stating we didn't tell him what we were doing. Informed pt of stool on packing and that it needed to be removed, pt stated he would do it himself, he could not tolerate dressing change. Instructed pt to remove packing, cleanse with saline, and repack with 1/4" Iodoform packing strip daily, cover with ABD, pt v/u. Treatment Recommendations/Plan: Cleanse with saline, and repack with 1/4" Iodoform packing strip daily, cover with ABD, hold in place with mesh underwear. Education provided: to pt re: dressing changes and s/sx of infection. to AIYANA Lomeli re: refusal of dressing change. Offloading surface/device: Recommended Referrals/Tests: n/a Discharge Recommendations for dressings: see treatment plan above Addendum: 02/06/21 at 1540 by Claudia Dunn RN Received call from AIYANA Lomeli, stating pt removed packing and was requesting that wound care return to pack wound. Pt seen, wound evaluated, cleansed, measured and photographed. Wound is draining a moderate amount of brownish, serosanguinous drainage, mild odor, periwound induration. Per pt request, wound packed with strip of Aquacel AG d/t ease of packing and removal, covered with ABD and mesh underwear, pt tolerated with moderate amount of pain. Pt stated he has the AG and supplies at home and would change his own dressings using a mirror. Pt's mother at bedside during dressing change.
--- NOTE | 2021-02-06 13:49 | NUR ---
SW following. Discussed with RN, pt from home, room air, ada diet, COVID-19 negative. No therapy needs. SW met with pt about home health. Pt has not made a decision yet about whether he wants home health or not. Pt does have family to take him to the wound clinic if needed but could not give SW a decision about what he wants to do. SW will continue to follow.
[2021-02-06 15:00] VITALS: BP 120/67
[2021-02-06 19:00] VITALS: BP 145/58
[2021-02-06] MEDS: ATORVASTATIN CALCIUM 40 MG TABLET. PO SCH (22:13)
[2021-02-06 23:00] VITALS: BP 121/59
[2021-02-07] MEDS: PIPERACILLIN/TAZOBACTAM 3.375 GM in IV NORMAL SALINE 50ML 50 ML IV SCH ×4 (00:37→17:11)
[2021-02-07 03:00] VITALS: BP 122/68
[2021-02-07] MEDS: HEPARIN for SUB-Q USE 5,000 UNIT/ML VIAL. SQ SCH ×3 (05:43→22:20)
[2021-02-07 07:00] VITALS: BP 127/65
[2021-02-07 07:41] LABS: BASO # 0.1 x10^3/uL (0.0-0.2); BASO % 1 % (0-3); EOS # 0.2 x10^3/uL (0.0-0.7); EOS % 2 % (0-3); HEMATOCRIT 43.8 % (39.0-53.0); HEMOGLOBIN 14.5 g/dL (13.0-17.5); LYMPH % 49 % (24-48); MEAN CORPUSCULAR HEMOGLOBIN 30 pg (25-35); MEAN CORPUSCULAR HGB CONC 33 g/dL (31-37); MEAN CORPUSCULAR VOLUME 91 fL (79-100); MONO # 1.1 x10^3/uL (0.0-1.1); MONO % 11 % (0-9); NEUT # 3.8 x10^3/uL (1.8-7.7); NEUT % 38 % (31-73); PLATELET COUNT 308 x10^3/uL (140-400); RED BLOOD COUNT 4.82 x10^6/uL (4.30-5.70); RED CELL DISTRIBUTION WIDTH 14.9 % (11.5-14.5); WHITE BLOOD COUNT 10.2 x10^3/uL (4.0-11.0)
--- NOTE | 2021-02-07 07:54 | PDOC ---
[facility] [facility] PROGRESS NOTE Date of Service DOS: DATE: 02/07/21 TIME: 07:54 Chief Complaint Chief Complaint Perirectal abscess Chronic back pain DM2 HLD Plan: Consult placed to general surgery Patient was taken to the OR and had incision and drainage of perirectal abscess; cultures taken. Continue vancomycin for now, but I doubt he will need antibiotics on discharge. Follow cultures Provide pain management Resume home medications FEN - Cardiac diet PPX - SCDs FULL CODE Dispo - inpatient for above History of Present Illness History of Present Illness Mr Myles is a 55-year-old male past medical history DM2, HTN, and perirectal abscesses, who presents to the ED with complaint of perirectal abscess. Notes painful abscess to his rectum for the past week. Labs on admission showed WBC 17.8, CBG 109. Consultation was placed to general surgery, and patient was taken to the OR for surgical I&D 02/04/2021. He was admitted for further medical management. 02/05: Labs stable. Afebrile. Pain better than prior to admission but still 6/10 currently. Seen while eating. Zosyn added for anaerobic coverage. Cultures pending. 02/06: Labs stable. Afebrile. Back pain better controlled. Cultures with gram- negative rods. Labs improved afebrile. Pain is controlled. There is some stool near the wound cleaned off bedside. Cultures with 3 microbes E. coli is the primary awaiting final sensitivities. Have advised him we should remain inpatient on IV antibiotics until final sensitivities are available to avoid rehospitalization. Vitals/I&O Vitals/I&O: Vital Signs Date Time Temp Pulse Resp B/P (MAP) Pulse Ox O2 Delivery O2 Flow Rate FiO2 02/07/21 03:00 98.1 94 18 122/68 (86) 94 Room Air 98.1 02/06/21 20:00 6.0 I & O 02/06/21 02/06/21 02/07/21 15:00 23:00 07:00 Intake Total 500 ml 150 ml 0 ml Output Total 600 ml Balance 500 ml 150 ml -600 ml Physical Exam General: Alert, Cooperative Heart: Regular rate, No murmurs Abdomen: Normal bowel sounds, Soft, No tenderness, Other (Rectal exam shows fluctuant area to the right of the rectum consistent with CT findings) Extremities: No edema Skin: Other (wound packed ) Labs Labs: Laboratory Tests Test 02/06/21 08:01 02/06/21 08:55 02/06/21 11:51 02/06/21 16:58 Glucose (Fingerstick) 95 mg/dL (70-99) 90 mg/dL (70-99) 96 mg/dL (70-99) White Blood Count 10.9 x10^3/uL (4.0-11.0) Red Blood Count 5.11 x10^6/uL (4.30-5.70) Hemoglobin 15.4 g/dL (13.0-17.5) Hematocrit 46.1 % (39.0-53.0) Mean Corpuscular Volume 90 fL (79-100) Mean Corpuscular Hemoglobin 30 pg (25-35) Mean Corpuscular Hemoglobin Concent 33 g/dL (31-37) Red Cell Distribution Width 15.1 % (11.5-14.5) Platelet Count 282 x10^3/uL (140-400) Neutrophils (%) (Auto) 54 % (31-73) Lymphocytes (%) (Auto) 36 % (24-48) Monocytes (%) (Auto) 9 % (0-9) Eosinophils (%) (Auto) 1 % (0-3) Basophils (%) (Auto) 1 % (0-3) Neutrophils # (Auto) 5.9 x10^3/uL (1.8-7.7) Lymphocytes # (Auto) 3.9 x10^3/uL (1.0-4.8) Monocytes # (Auto) 1.0 x10^3/uL (0.0-1.1) Eosinophils # (Auto) 0.1 x10^3/uL (0.0-0.7) Basophils # (Auto) 0.1 x10^3/uL (0.0-0.2) Creatinine 1.2 mg/dL (0.7-1.3) Estimated GFR (Cockcroft-Gault) 76.6 Vancomycin Level Trough 14.0 mcg/mL (10.0-20.0) Vancomycin Last Dose Date 02/05/21 Vancomycin Last Dose Time 2100 Test 02/06/21 20:13 Glucose (Fingerstick) 130 mg/dL (70-99) Comment Review of Relevant I have reviewed the following items migue (where applicable) has been applied. Medications: Current Medications Medications (Trade) Dose Ordered Sig/Cristina Route PRN Reason Start Time Stop Time Status Last Admin Dose Admin Vancomycin HCl (Vancomycin Trough Level) 1 each 1X ONCE MC 02/06/21 08:30 02/06/21 08:31 DC 02/06/21 08:30 Justifications for Admission Other Justification SCARLETT BENNETT MD Feb 07, 2021 07:54
[2021-02-07 07:58] LABS: CREATININE 1.1 mg/dL (0.7-1.3); GFR 84.7
[2021-02-07] MEDS: VANCOMYCIN 1.25 GM in IV NORMAL SALINE 250ML 250 ML IV SCH ×2 (08:51→21:00)
[2021-02-07] MEDS: DOCUSATE SODIUM 100 MG CAPSULE. PO SCH ×2 (08:51→22:13)
[2021-02-07] MEDS: LACTOBACILLUS RHAMNOSUS GG 1 CAPSULE. PO SCH ×2 (08:51→22:13)
--- NOTE | 2021-02-07 09:25 | PDOC ---
SURGICAL PROGRESS NOTE DATE: 02/07/21 TIME: 09:24 Subjective overall feeling better plans for wound care at home Vital Signs Vital Signs Date Time Temp Pulse Resp B/P (MAP) Pulse Ox O2 Delivery O2 Flow Rate FiO2 02/07/21 07:00 97.6 56 18 127/65 (85) 97 Room Air 97.6 02/06/21 20:00 6.0 I&O Intake and Output 02/07/21 07:00 Intake Total 650 ml Output Total 600 ml Balance 50 ml Intake Oral 650 ml Output Urine Total 600 ml # Voids 1 General: Alert, Oriented X3, Cooperative Abdomen: Soft Labs Laboratory Tests Test 02/05/21 12:10 02/05/21 16:54 02/05/21 21:02 02/06/21 08:01 Glucose (Fingerstick) 91 mg/dL (70-99) 108 mg/dL (70-99) 104 mg/dL (70-99) 95 mg/dL (70-99) Test 02/06/21 08:55 02/06/21 11:51 02/06/21 16:58 02/06/21 20:13 White Blood Count 10.9 x10^3/uL (4.0-11.0) Red Blood Count 5.11 x10^6/uL (4.30-5.70) Hemoglobin 15.4 g/dL (13.0-17.5) Hematocrit 46.1 % (39.0-53.0) Mean Corpuscular Volume 90 fL (79-100) Mean Corpuscular Hemoglobin 30 pg (25-35) Mean Corpuscular Hemoglobin Concent 33 g/dL (31-37) Red Cell Distribution Width 15.1 % (11.5-14.5) Platelet Count 282 x10^3/uL (140-400) Neutrophils (%) (Auto) 54 % (31-73) Lymphocytes (%) (Auto) 36 % (24-48) Monocytes (%) (Auto) 9 % (0-9) Eosinophils (%) (Auto) 1 % (0-3) Basophils (%) (Auto) 1 % (0-3) Neutrophils # (Auto) 5.9 x10^3/uL (1.8-7.7) Lymphocytes # (Auto) 3.9 x10^3/uL (1.0-4.8) Monocytes # (Auto) 1.0 x10^3/uL (0.0-1.1) Eosinophils # (Auto) 0.1 x10^3/uL (0.0-0.7) Basophils # (Auto) 0.1 x10^3/uL (0.0-0.2) Creatinine 1.2 mg/dL (0.7-1.3) Estimated GFR (Cockcroft-Gault) 76.6 Vancomycin Level Trough 14.0 mcg/mL (10.0-20.0) Vancomycin Last Dose Date 02/05/21 Vancomycin Last Dose Time 2100 Glucose (Fingerstick) 90 mg/dL (70-99) 96 mg/dL (70-99) 130 mg/dL (70-99) Test 02/07/21 05:55 02/07/21 07:53 White Blood Count 10.2 x10^3/uL (4.0-11.0) Red Blood Count 4.82 x10^6/uL (4.30-5.70) Hemoglobin 14.5 g/dL (13.0-17.5) Hematocrit 43.8 % (39.0-53.0) Mean Corpuscular Volume 91 fL (79-100) Mean Corpuscular Hemoglobin 30 pg (25-35) Mean Corpuscular Hemoglobin Concent 33 g/dL (31-37) Red Cell Distribution Width 14.9 % (11.5-14.5) Platelet Count 308 x10^3/uL (140-400) Neutrophils (%) (Auto) 38 % (31-73) Lymphocytes (%) (Auto) 49 % (24-48) Monocytes (%) (Auto) 11 % (0-9) Eosinophils (%) (Auto) 2 % (0-3) Basophils (%) (Auto) 1 % (0-3) Neutrophils # (Auto) 3.8 x10^3/uL (1.8-7.7) Lymphocytes # (Auto) 5.0 x10^3/uL (1.0-4.8) Monocytes # (Auto) 1.1 x10^3/uL (0.0-1.1) Eosinophils # (Auto) 0.2 x10^3/uL (0.0-0.7) Basophils # (Auto) 0.1 x10^3/uL (0.0-0.2) Creatinine 1.1 mg/dL (0.7-1.3) Estimated GFR (Cockcroft-Gault) 84.7 Glucose (Fingerstick) 98 mg/dL (70-99) Laboratory Tests Test 02/06/21 11:51 02/06/21 16:58 02/06/21 20:13 02/07/21 05:55 Glucose (Fingerstick) 90 mg/dL (70-99) 96 mg/dL (70-99) 130 mg/dL (70-99) White Blood Count 10.2 x10^3/uL (4.0-11.0) Red Blood Count 4.82 x10^6/uL (4.30-5.70) Hemoglobin 14.5 g/dL (13.0-17.5) Hematocrit 43.8 % (39.0-53.0) Mean Corpuscular Volume 91 fL (79-100) Mean Corpuscular Hemoglobin 30 pg (25-35) Mean Corpuscular Hemoglobin Concent 33 g/dL (31-37) Red Cell Distribution Width 14.9 % (11.5-14.5) Platelet Count 308 x10^3/uL (140-400) Neutrophils (%) (Auto) 38 % (31-73) Lymphocytes (%) (Auto) 49 % (24-48) Monocytes (%) (Auto) 11 % (0-9) Eosinophils (%) (Auto) 2 % (0-3) Basophils (%) (Auto) 1 % (0-3) Neutrophils # (Auto) 3.8 x10^3/uL (1.8-7.7) Lymphocytes # (Auto) 5.0 x10^3/uL (1.0-4.8) Monocytes # (Auto) 1.1 x10^3/uL (0.0-1.1) Eosinophils # (Auto) 0.2 x10^3/uL (0.0-0.7) Basophils # (Auto) 0.1 x10^3/uL (0.0-0.2) Creatinine 1.1 mg/dL (0.7-1.3) Estimated GFR (Cockcroft-Gault) 84.7 Test 02/07/21 07:53 Glucose (Fingerstick) 98 mg/dL (70-99) Problem List continue wound care can FU in clinic 1-2 weeks Justicifation of Admission Dx: Justifications for Admission: Justification of Admission Dx: Yes GRABIEL LLOYD [employer] Feb 07, 2021 09:25
[2021-02-07 11:00] VITALS: BP 133/61
[2021-02-07] MEDS: VANCOMYCIN PER PHARMACY MC PRN (11:28)
[2021-02-07 15:00] VITALS: BP 132/65
[2021-02-07 19:00] VITALS: BP 129/61
[2021-02-07] MEDS: ATORVASTATIN CALCIUM 40 MG TABLET. PO SCH (22:13)
[2021-02-07 23:38] VITALS: BP 121/55
[2021-02-08] MEDS: PIPERACILLIN/TAZOBACTAM 3.375 GM in IV NORMAL SALINE 50ML 50 ML IV SCH ×3 (00:56→12:02)
[2021-02-08 03:30] VITALS: BP 141/64
[2021-02-08] MEDS: HEPARIN for SUB-Q USE 5,000 UNIT/ML VIAL. SQ SCH (06:06)
[2021-02-08 07:00] VITALS: BP 143/73
[2021-02-08 07:17] LABS: BASO # 0.1 x10^3/uL (0.0-0.2); BASO % 1 % (0-3); EOS # 0.2 x10^3/uL (0.0-0.7); EOS % 1 % (0-3); HEMATOCRIT 43.9 % (39.0-53.0); HEMOGLOBIN 14.7 g/dL (13.0-17.5); LYMPH # 4.3 x10^3/uL (1.0-4.8); LYMPH % 38 % (24-48); MEAN CORPUSCULAR HEMOGLOBIN 30 pg (25-35); MEAN CORPUSCULAR HGB CONC 33 g/dL (31-37); MEAN CORPUSCULAR VOLUME 90 fL (79-100); MONO # 1.3 x10^3/uL (0.0-1.1); MONO % 11 % (0-9); NEUT # 5.5 x10^3/uL (1.8-7.7); NEUT % 49 % (31-73); PLATELET COUNT 301 x10^3/uL (140-400); RED BLOOD COUNT 4.89 x10^6/uL (4.30-5.70); RED CELL DISTRIBUTION WIDTH 15.2 % (11.5-14.5); WHITE BLOOD COUNT 11.3 x10^3/uL (4.0-11.0)
--- NOTE | 2021-02-08 07:31 | PDOC ---
[facility] [facility] PROGRESS NOTE Date of Service DOS: DATE: 02/08/21 TIME: 07:31 Chief Complaint Chief Complaint Perirectal abscess Chronic back pain DM2 HLD Plan: Consult placed to general surgery Patient was taken to the OR and had incision and drainage of perirectal abscess; cultures taken. Continue vancomycin for now, but I doubt he will need antibiotics on discharge. Follow cultures Provide pain management Resume home medications FEN - Cardiac diet PPX - SCDs FULL CODE Dispo - inpatient for above History of Present Illness History of Present Illness Mr Myles is a 55-year-old male past medical history DM2, HTN, and perirectal abscesses, who presents to the ED with complaint of perirectal abscess. Notes painful abscess to his rectum for the past week. Labs on admission showed WBC 17.8, CBG 109. Consultation was placed to general surgery, and patient was taken to the OR for surgical I&D 02/04/2021. He was admitted for further medical management. 02/05: Labs stable. Afebrile. Pain better than prior to admission but still 6/10 currently. Seen while eating. Zosyn added for anaerobic coverage. Cultures pending. 02/06: Labs stable. Afebrile. Back pain better controlled. Cultures with gram- negative rods. 02/07: Labs improved afebrile. Pain is controlled. There is some stool near the wound cleaned off bedside. Cultures with 3 microbes E. coli is the primary awaiting final sensitivities. Have advised him we should remain inpatient on IV antibiotics until final sensitivities are available to avoid rehospitalization. Labs normalized. Afebrile. Polymicrobial culture will go home on Augmentin and doxycycline for 10 days and follow-up with wound clinic for dressing change tomorrow and surgery in 1 to 2 weeks. All questions answered. Has not had any pain medications in the past 72 hours Vitals/I&O Vitals/I&O: Vital Signs Date Time Temp Pulse Resp B/P (MAP) Pulse Ox O2 Delivery O2 Flow Rate FiO2 02/08/21 03:30 97.8 47 18 141/64 (89) 93 Room Air 97.8 02/07/21 20:08 6.0 I & O 02/07/21 02/07/21 02/08/21 15:00 23:00 07:00 Intake Total 400 ml 200 ml 0 ml Balance 400 ml 200 ml 0 ml Physical Exam General: Alert, Oriented X3, Cooperative Heart: Regular rate, No murmurs Abdomen: Soft Extremities: No edema Skin: Other (wound packed ) Labs Labs: Laboratory Tests Test 02/07/21 07:53 02/07/21 11:50 02/07/21 16:48 02/07/21 21:22 Glucose (Fingerstick) 98 mg/dL (70-99) 84 mg/dL (70-99) 111 mg/dL (70-99) 96 mg/dL (70-99) Comment Review of Relevant I have reviewed the following items migue (where applicable) has been applied. Justifications for Admission Other Justification SCARLETT BENNETT MD Feb 08, 2021 07:31
[2021-02-08] MEDS: DOCUSATE SODIUM 100 MG CAPSULE. PO SCH (09:24)
[2021-02-08] MEDS: LACTOBACILLUS RHAMNOSUS GG 1 CAPSULE. PO SCH (09:24)
[2021-02-08] MEDS: VANCOMYCIN 1.25 GM in IV NORMAL SALINE 250ML 250 ML IV SCH (09:25)
[2021-02-08] MEDS: VANCOMYCIN PER PHARMACY MC PRN (10:48)
[2021-02-08 11:00] VITALS: BP 140/63
[2021-02-08] MEDS ORDERED: DOXY100T PO (13:25)
[2021-02-08] MEDS ORDERED: AMOX1TAB11 PO (13:25)
--- NOTE | 2021-02-08 13:31 | PDOC3 ---
Discharge Summary Visit Information Date of Admission: Feb 04, 2021 Date of Discharge: Feb 08, 2021 Admitting Diagnosis: Perirectal abscess Final Diagnosis Perirectal abscess Brief Hospital Course Allergies Allergies Coded Allergies Type Severity Reaction Last Updated Verified No Known Drug Allergies 05/17/17 No Vital Signs Vital Signs Date Time Temp Pulse Resp B/P (MAP) Pulse Ox O2 Delivery O2 Flow Rate FiO2 02/08/21 11:00 98.1 52 18 140/63 (88) 95 Room Air 98.1 02/07/21 20:08 6.0 Lab Results Laboratory Tests Test 02/06/21 16:58 02/06/21 20:13 02/07/21 05:55 02/07/21 07:53 Glucose (Fingerstick) 96 mg/dL (70-99) 130 mg/dL (70-99) 98 mg/dL (70-99) White Blood Count 10.2 x10^3/uL (4.0-11.0) Red Blood Count 4.82 x10^6/uL (4.30-5.70) Hemoglobin 14.5 g/dL (13.0-17.5) Hematocrit 43.8 % (39.0-53.0) Mean Corpuscular Volume 91 fL (79-100) Mean Corpuscular Hemoglobin 30 pg (25-35) Mean Corpuscular Hemoglobin Concent 33 g/dL (31-37) Red Cell Distribution Width 14.9 % (11.5-14.5) Platelet Count 308 x10^3/uL (140-400) Neutrophils (%) (Auto) 38 % (31-73) Lymphocytes (%) (Auto) 49 % (24-48) Monocytes (%) (Auto) 11 % (0-9) Eosinophils (%) (Auto) 2 % (0-3) Basophils (%) (Auto) 1 % (0-3) Neutrophils # (Auto) 3.8 x10^3/uL (1.8-7.7) Lymphocytes # (Auto) 5.0 x10^3/uL (1.0-4.8) Monocytes # (Auto) 1.1 x10^3/uL (0.0-1.1) Eosinophils # (Auto) 0.2 x10^3/uL (0.0-0.7) Basophils # (Auto) 0.1 x10^3/uL (0.0-0.2) Creatinine 1.1 mg/dL (0.7-1.3) Estimated GFR (Cockcroft-Gault) 84.7 Test 02/07/21 11:50 02/07/21 16:48 02/07/21 21:22 02/08/21 06:20 Glucose (Fingerstick) 84 mg/dL (70-99) 111 mg/dL (70-99) 96 mg/dL (70-99) White Blood Count 11.3 x10^3/uL (4.0-11.0) Red Blood Count 4.89 x10^6/uL (4.30-5.70) Hemoglobin 14.7 g/dL (13.0-17.5) Hematocrit 43.9 % (39.0-53.0) Mean Corpuscular Volume 90 fL (79-100) Mean Corpuscular Hemoglobin 30 pg (25-35) Mean Corpuscular Hemoglobin Concent 33 g/dL (31-37) Red Cell Distribution Width 15.2 % (11.5-14.5) Platelet Count 301 x10^3/uL (140-400) Neutrophils (%) (Auto) 49 % (31-73) Lymphocytes (%) (Auto) 38 % (24-48) Monocytes (%) (Auto) 11 % (0-9) Eosinophils (%) (Auto) 1 % (0-3) Basophils (%) (Auto) 1 % (0-3) Neutrophils # (Auto) 5.5 x10^3/uL (1.8-7.7) Lymphocytes # (Auto) 4.3 x10^3/uL (1.0-4.8) Monocytes # (Auto) 1.3 x10^3/uL (0.0-1.1) Eosinophils # (Auto) 0.2 x10^3/uL (0.0-0.7) Basophils # (Auto) 0.1 x10^3/uL (0.0-0.2) Test 02/08/21 08:00 02/08/21 11:43 Glucose (Fingerstick) 114 mg/dL (70-99) 90 mg/dL (70-99) Laboratory Tests Test 02/07/21 16:48 02/07/21 21:22 02/08/21 06:20 02/08/21 08:00 Glucose (Fingerstick) 111 mg/dL (70-99) 96 mg/dL (70-99) 114 mg/dL (70-99) White Blood Count 11.3 x10^3/uL (4.0-11.0) Red Blood Count 4.89 x10^6/uL (4.30-5.70) Hemoglobin 14.7 g/dL (13.0-17.5) Hematocrit 43.9 % (39.0-53.0) Mean Corpuscular Volume 90 fL (79-100) Mean Corpuscular Hemoglobin 30 pg (25-35) Mean Corpuscular Hemoglobin Concent 33 g/dL (31-37) Red Cell Distribution Width 15.2 % (11.5-14.5) Platelet Count 301 x10^3/uL (140-400) Neutrophils (%) (Auto) 49 % (31-73) Lymphocytes (%) (Auto) 38 % (24-48) Monocytes (%) (Auto) 11 % (0-9) Eosinophils (%) (Auto) 1 % (0-3) Basophils (%) (Auto) 1 % (0-3) Neutrophils # (Auto) 5.5 x10^3/uL (1.8-7.7) Lymphocytes # (Auto) 4.3 x10^3/uL (1.0-4.8) Monocytes # (Auto) 1.3 x10^3/uL (0.0-1.1) Eosinophils # (Auto) 0.2 x10^3/uL (0.0-0.7) Basophils # (Auto) 0.1 x10^3/uL (0.0-0.2) Test 02/08/21 11:43 Glucose (Fingerstick) 90 mg/dL (70-99) Brief Hospital Course Mr Myles is a 55-year-old male past medical history DM2, HTN, and perirectal abscesses, who presents to the ED with complaint of perirectal abscess. Notes painful abscess to his rectum for the past week. Labs on admission showed WBC 17.8, CBG 109. Consultation was placed to general surgery, and patient was taken to the OR for surgical I&D 02/04/2021. He was admitted for further medical management. 02/05: Labs stable. Afebrile. Pain better than prior to admission but still 6/10 currently. Seen while eating. Zosyn added for anaerobic coverage. Cultures pending. 02/06: Labs stable. Afebrile. Back pain better controlled. Cultures with gram- negative rods. 02/07: Labs improved afebrile. Pain is controlled. There is some stool near the wound cleaned off bedside. Cultures with 3 microbes E. coli is the primary awaiting final sensitivities. Have advised him we should remain inpatient on IV antibiotics until final sensitivities are available to avoid rehospitalization. Labs normalized. Afebrile. Polymicrobial culture will go home on Augmentin and doxycycline for 10 days and follow-up with wound clinic for dressing change tomorrow and surgery in 1 to 2 weeks. All questions answered. Has not had any pain medications in the past 72 hours Consults: General surgery Problem list: Perirectal abscess Chronic back pain DM2 HLD Greater than 30 minutes spent on d/c home with self care Discharge Information Condition at Discharge: Improved Follow Up: Weeks (1) Disposition/Orders: D/C to Home Scheduled Adalimumab (Humira) 40 Mg/0.8 Ml Pen.ij.kit, 40 MG SQ WEEKLY for psoriasis , (Reported) Entered as Reported by: MERARY AMIN LPN on 02/04/21 1348 Last Taken: UNKNOWN on Unknown Date & Time Last Action: Converted on 02/04/211842 by ZOILA TOVAR MD Amoxicillin/Potassium Clav (Amox Tr-K Clv 875-125 Mg Tab) 1 Each Tablet, 1 TAB PO BID for Abscess for 10 Days, #20 Prescribed by: SCARLETT BENNETT MD on 02/08/21 1325 Atorvastatin Calcium (Atorvastatin Calcium) 40 Mg Tablet, 1 TAB PO QHS for high cholesterol, #90 Ref 3 (Reported) Entered as Reported by: GREGORIA KNIGHT RN on 09/24/19 0641 Last Action: Continued on 02/04/211842 by ZOILA TOVAR MD Docusate Sodium (Colace) 100 Mg Capsule, 100 MG PO BID for stool softener, #60 Prescribed by: SALIMA MACIAS on 09/26/19 1059 Last Action: Continued on 02/04/211842 by ZOILA TOVAR MD Doxycycline Hyclate (Doxycycline Hyclate) 100 Mg Tablet, 1 TAB PO BID for Abscess for 10 Days, #20 Prescribed by: SCARLETT BENNETT MD on 02/08/21 1325 Metformin Hcl (Metformin Hcl Er) 500 Mg Tab.er.24h, 500 MG PO DAILY for diabetes , Ref 0 (Reported) Entered as Reported by: MERARY AMIN LPN on 02/04/21 135 Last Taken: UNKNOWN on Unknown Date & Time Last Action: New Order on 02/04/211349 by MERARY AMIN LPN Scheduled PRN Polyethylene Glycol 3350 (Miralax) 17 Gm Powd.pack, 1 PACKET PO DAILY PRN for hard stool, #30 Prescribed by: SALIMA MACIAS on 09/26/19 1059 Last Action: Continued on 02/04/21 184 by ZOILA TOVAR MD Justicifation of Admission Dx: Justifications for Admission: Justification of Admission Dx: Yes SCARLETT BENNETT MD Feb 08, 2021 13:31
[2021-02-08 14:49] VITALS: BP 151/62
--- NOTE | 2021-02-08 16:25 | NUR ---
Discharge Note: ANNAMARIE CONROY Discharge instructions and discharge home medications reviewed with Patient and a copy given. All questions have been answered and understanding verbalized. The following instructions and handouts were given: Diet, activity, medication list and follow up instructions provided to patient. Patient directed to call [facility] in the morning to come in and have dressing changed on 02/09/21. Discontinued lines and drains: Peripheral IV discontinued and catheter intact. Patient discharged to Home or Self Care with Family Member via [facility]
[2021-02-11] MEDS ORDERED: NON FORMULARY ITEM (Adalimumab (Humira) 40 MG) SQ SCH (09:00)
== END 2021-02-08 15:50 | disposition home or self-care (01) | DRG 346 ==
LOC: ER 08:29 → 4 NORTH 12:33
PROVIDERS: ADMIT Family Medicine; ATTEND Family Medicine
PROC: 0D9P0ZZ Drainage of Rectum, Open Approach (ICD-10-PCS; principal; 2021-02-04 16:00)
DX: K61.1 Rectal abscess (principal); E11.9 Type 2 diabetes mellitus without complications; E78.00 Pure hypercholesterolemia, unspecified; E78.5 Hyperlipidemia, unspecified; F17.210 Nicotine dependence, cigarettes, uncomplicated; G89.29 Other chronic pain; I10 Essential (primary) hypertension; K62.89 Other specified diseases of anus and rectum; Z20.822 Contact with and (suspected) exposure to COVID-19; L40.9 Psoriasis, unspecified; B96.20 Unspecified Escherichia coli [E. coli] as the cause of diseases classified elsewhere
CPT/HCPCS: 36415; 74177; 80048; 80053; 80202; 81001; 82565; 82962; 85007; 85025; 87071; 87075; 87426; 96365; 96375; A4930; J1100; J1644; J2270; J2405; J2543; J2704; J3010; J3370; J7040; J7050; J7120; Q9967; U0003; U0005; 99285-25; G0378; J7030